=== PATIENT | male | born 1930 | race Caucasian/White ===

== ENCOUNTER 2016-11-21 01:34 | Inpatient (IN) | payer MEDICARE ==
[2016-11-21] VITALS (7 sets, daily range): BP systolic 132–173; BP diastolic 86–96
[~2016-11-21] VITALS: Ht 172.7 cm; Wt 76.8 kg
[2016-11-21] MEDS ORDERED: IPRATRPIUM/ALBUTEROL 0.5/2.5MG 3 ML NEBU. NEB ONE (02:45)
[2016-11-21 02:46] LABS: BASO % 0 % (0-3); CREATININE 2.6 mg/dL (0.7-1.3); EOS % 2 % (0-3); GFR 23.4; HEMOGLOBIN 10.8 g/dL (13.0-17.5); LYMPH # 0.4 x10^3/uL (1.0-4.8); LYMPH % 4 % (24-48); MEAN CORPUSCULAR HEMOGLOBIN 27 pg (25-35); MEAN CORPUSCULAR HGB CONC 33 g/dL (31-37); MEAN CORPUSCULAR VOLUME 84 fL (79-100); MONO % 9 % (0-9); NEUT % 84 % (31-73); PLATELET COUNT 286 x10^3/uL (140-400); RED BLOOD COUNT 3.94 x10^6/uL (4.30-5.70); WHITE BLOOD COUNT 10.8 x10^3/uL (4.0-11.0)
[2016-11-21 02:52] LABS: ALBUMIN 3.5 g/dL (3.4-5.0); ALBUMIN/GLOBULIN RATIO 0.9 (1.0-1.7); TOTAL BILIRUBIN 0.4 mg/dL (0.2-1.0); TOTAL PROTEIN 7.6 g/dL (6.4-8.2)
[2016-11-21 03:02] LABS: OBC FLU VALID
--- NOTE | 2016-11-21 03:39 | ED.ADGEN ---
Past Medical History Past Medical History: Diabetes-Type II, Hypertension Past Surgical History: Knee Replacement, Other Additional Past Surgical Histo: PROSTATE Alcohol Use: None Drug Use: None Adult General Chief Complaint Chief Complaint: COUGH HPI HPI Patient is a 86 year old history of type 2 diabetes mellitus, hypertension, who presents to the emergency department with complaint of cough, wheezing, shortness of breath which she states isn't worsening over the past several weeks. Patient denies any chest pain, any fevers or chills, states the cough is nonproductive, denies any swelling extremities, any abdominal pain, any nausea, vomiting or diarrhea, any weakness emesis or tingling, any recent travel or surgery. No history of DVT or PE. Review of Systems Review of Systems Constitutional: Denies fever or chills. [] Eyes: Denies change in visual acuity. [] HENT: Denies nasal congestion or sore throat. [] Respiratory: Cough, shortness of breath. Wheezing. Cardiovascular: Denies chest pain or edema. [] GI: Denies abdominal pain, nausea, vomiting, bloody stools or diarrhea. [] : Denies dysuria. [] Musculoskeletal: Denies back pain or joint pain. [] Integument: Denies rash. [] Neurologic: Denies headache, focal weakness or sensory changes. [] Endocrine: Denies polyuria or polydipsia. [] Lymphatic: Denies swollen glands. [] Psychiatric: Denies depression or anxiety. [] Current Medications Current Medications Current Medications Medications (Trade) Dose Ordered Sig/Kenisha Start Time Stop Time Status Last Admin Dose Admin Albuterol/ Ipratropium (Duoneb) 3 ml 1X ONCE 11/21/16 02:45 11/21/16 02:46 DC 11/21/16 02:36 3 ML Allergies Allergies Allergies Coded Allergies Type Severity Reaction Last Updated Verified No Known Drug Allergies 11/21/16 No Physical Exam Physical Exam Constitutional: Well developed, well nourished, no acute distress, non-toxic appearance. [] HENT: Normocephalic, atraumatic, bilateral external ears normal, oropharynx moist, no oral exudates, nose normal. [] Eyes: PERRLA, EOMI, conjunctiva normal, no discharge. [] Neck: Normal range of motion, no tenderness, supple, no stridor. [] Cardiovascular:Heart rate regular rhythm, no murmur [, S1, S2, rubs or gallops.] Lungs & Thorax: Patient with coarse breath sounds noted bilaterally, rhonchi, throughout, no wheezing, no rales. No chest wall tenderness or crepitus. [] Abdomen: Bowel sounds normal, soft, no tenderness, no rebound, rigidity, no guarding, no masses, no pulsatile masses. [] Skin: Warm, dry, no erythema, no rash. [] Back: No tenderness, no CVA tenderness. [] Extremities: No tenderness, no cyanosis, no clubbing, ROM intact, no edema. Negative Homans sign. [] Neurologic: Alert and oriented X 3, normal motor function, normal sensory function, no focal deficits noted. [] Psychologic: Affect normal, judgement normal, mood normal. [] Current Patient Data Vital Signs Vital Signs Date Time Temp Pulse Resp B/P Pulse Ox O2 Delivery O2 Flow Rate FiO2 11/21/16 04:00 94 150/83 98 Room Air 11/21/16 01:51 98.6 20 98.6 Lab Values Laboratory Tests Test 11/21/16 02:27 11/21/16 03:44 White Blood Count 10.8x10^3/uL (4.0-11.0) Red Blood Count 3.94x10^6/uL (4.30-5.70) L Hemoglobin 10.8g/dL (13.0-17.5) L Hematocrit 33.0% (39.0-53.0) L Mean Corpuscular Volume 84fL (79-100) Mean Corpuscular Hemoglobin 27pg (25-35) Mean Corpuscular Hemoglobin Concent 33g/dL (31-37) Red Cell Distribution Width 13.0% (11.5-14.5) Platelet Count 286x10^3/uL (140-400) Neutrophils (%) (Auto) 84% (31-73) H Lymphocytes (%) (Auto) 4% (24-48) L Monocytes (%) (Auto) 9% (0-9) Eosinophils (%) (Auto) 2% (0-3) Basophils (%) (Auto) 0% (0-3) Neutrophils # (Auto) 9.1x10^3uL (1.8-7.7) H Lymphocytes # (Auto) 0.4x10^3/uL (1.0-4.8) L Monocytes # (Auto) 1.0x10^3/uL (0.0-1.1) Eosinophils # (Auto) 0.2x10^3/uL (0.0-0.7) Basophils # (Auto) 0.0x10^3/uL (0.0-0.2) Sodium Level 139mmol/L (136-145) Potassium Level 4.0mmol/L (3.5-5.1) Chloride Level 102mmol/L (98-107) Carbon Dioxide Level 25mmol/L (21-32) Anion Gap 12 (6-14) Blood Urea Nitrogen 37mg/dL (8-26) H Creatinine 2.6mg/dL (0.7-1.3) H Estimated GFR (Cockcroft-Gault) 23.4 BUN/Creatinine Ratio 14 (6-20) Glucose Level 182mg/dL (70-99) H Calcium Level 9.0mg/dL (8.5-10.1) Total Bilirubin 0.4mg/dL (0.2-1.0) Aspartate Amino Transferase (AST) 27U/L (15-37) Alanine Aminotransferase (ALT) 30U/L (16-63) Alkaline Phosphatase 98U/L (46-116) Troponin I Quantitative < 0.017ng/mL (0.000-0.055) JY-Bgu-U-Type Natriuretic Peptide 1222pg/mL (0-449) H Total Protein 7.6g/dL (6.4-8.2) Albumin 3.5g/dL (3.4-5.0) Albumin/Globulin Ratio 0.9 (1.0-1.7) L Influenza Type A Antigen Negative (NEGATIVE) Influenza Type B Antigen Negative (NEGATIVE) Urine Collection Type Unknown Urine Color Yellow Urine Clarity Clear Urine pH 6.0 Urine Specific [place] 1.020 Urine Protein >=300mg/dL (NEG-TRACE) Urine Glucose (UA) 100mg/dL (NEG) Urine Ketones (Stick) Negativemg/dL (NEG) Urine Blood Negative (NEG) Urine Nitrite Negative (NEG) Urine Bilirubin Negative (NEG) Urine Urobilinogen Dipstick 0.2mg/dL (0.2 mg/dL) Urine Leukocyte Esterase Negative (NEG) Urine RBC 1-2/HPF (0-2) Urine WBC Occ/HPF (0-4) Urine Squamous Epithelial Cells Few/LPF Urine Bacteria 0/HPF (0-FEW) Urine Mucus Slight/LPF Laboratory Tests 11/21/16 02:27 Laboratory Tests 11/21/16 02:27 EKG EKG EC: Sinus rhythm, heart rate 99 beats minute, left axis deviation, QTC of 444, VT 146, QRS of 84, contour abnormalities noted in the anterior septal leads, with mild baseline artifact, no ST elevation or depression identified, abnormal ECG, does not meet STEMI criteria. [] Radiology/Procedures Radiology/Procedures Chest x-ray: Two-view: Slightly tortuous aorta, no obvious infiltrates or effusions, increased interstitial markings bilaterally, no pneumothorax, no bony or soft tissue abnormalities identified. As interpreted by me. [] Course & Med Decision Making Course & Med Decision Making Pertinent Labs and Imaging studies reviewed. (See chart for details) Patient with no history of renal insufficiency, noted have a creatinine of 2.6 in the emergency department, with an elevated blood urea nitrogen. I did discuss this finding with the patient and at bedside, patient states that he had laboratory studies performed about 2 weeks ago that were normal at that time. In conjunction with his other symptoms, although his chest x-ray does not reveal any acutely concerning findings, will admit for further evaluation, patient is agreeable with this course, findings as above discussed with Dr. Michelle of internal medicine, ridge orders with nephrology consultation placed. Dragon Disclaimer Dragon Disclaimer This electronic medical record was generated, in whole or in part, using a voice recognition dictation system. Departure Impression: Primary Impression: Acute renal failure Disposition: 09 ADMITTED INPATIENT Admitting Physician: Riccardo Michelle Condition: STABLE Problem Qualifiers Primary Impression: Acute renal failure Acute renal failure type: unspecified Qualified Code: N17.9 - Acute kidney failure, unspecified OLIVERIO YANES DO Nov 21, 2016 03:39
[2016-11-21 03:53] LABS: BILIRUBIN,URINE NEGATIVE (NEG); GLUCOSE,URINE 100 mg/dL (NEG); NITRITE,URINE NEGATIVE (NEG); PROTEIN,URINE >=300 mg/dL (NEG-TRACE); UROBILINOGEN,URINE 0.2 mg/dL (0.2 mg/dL)
[2016-11-21 03:59] LABS: BACTERIA,URINE 0 /HPF (0-FEW); SQUAMOUS EPITHELIAL CELL,UR FEW /LPF; WBC,URINE OCC /HPF (0-4)
[2016-11-21] MEDS ORDERED: IV NORMAL SALINE 1000ML BAG 1,000 ML IV ONE (05:00)
[2016-11-21] MEDS ORDERED: GLIP10TA13 PO (05:44)
[2016-11-21] MEDS ORDERED: HYDR-2868 PO (05:44)
[2016-11-21] MEDS ORDERED: NIFE90TA9 PO (05:44)
[2016-11-21] MEDS ORDERED: MULT-659 PO (05:44)
[2016-11-21] MEDS ORDERED: IRBE300T3 PO (05:44)
[2016-11-21] MEDS: IV NORMAL SALINE 1000ML BAG 1,000 ML IV SCH ×3 (07:23→17:23)
[2016-11-21] MEDS ORDERED: ACETAMINOPHEN 325 MG TABLET. PO PRN (07:30)
[2016-11-21] MEDS ORDERED: DEXTROSE 50% 25 GM / 50ML DISP.SYRIN. IV PRN (08:00)
--- NOTE | 2016-11-21 08:05 | RAD ---
Indication cough. Wheezing. PA and lateral views of the chest were obtained. Comparison is made to a study 07/07/2004. There are probable background changes of emphysema. The heart and pulmonary vessels appear normal. There is no focal consolidated pneumonia. No pleural fluid or pneumothorax is seen. There are degenerative changes about the shoulders. IMPRESSION: No acute or focal process seen in the chest
[2016-11-21] MEDS: MULTIVITAMIN with MINERAL TABLET. PO SCH (09:15)
[2016-11-21] MEDS: GLIPIZIDE 5 MG TABLET PO SCH ×2 (09:16→16:49)
[2016-11-21] MEDS: HYDRALAZINE 25 MG TABLET PO SCH ×3 (09:16→20:27)
[2016-11-21] MEDS: NIFEDIPINE ER 30 MG TAB.ER.24H PO SCH (09:16)
[2016-11-21] MEDS: INSULIN ASPART 300 UNITS/3 ML INSULN.PEN SQ SCH ×3 (09:25→16:36)
--- NOTE | 2016-11-21 11:40 | EKG ---
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
[2016-11-21] MEDS: IPRATRPIUM/ALBUTEROL 0.5/2.5MG 3 ML NEBU. NEB SCH ×3 (12:00→20:00)
--- NOTE | 2016-11-21 12:25 | PDOC1 ---
History and Physical Date of Admission Date of Admission DATE: 11/21/16 TIME: 12:20 Identification/Chief Complaint Chief Complaint weak Source Source: Caregiver, Chart review, Patient History of Present Illness History of Present Illness 86 y.o AA male who came in [facility] was so weak than his baseline, HE usually has good ADLS for his age, lives at home with and uses a walker prn. LAbs at ER shows crea 2.6, new to him, HE has DM since 1981 only on OHA and seems to have good control. Also has HTN, rather controlled too,. Follows regularly with PCP. HE seems to have good compliance and good ff up. Lots of questions about JENNIFER and causes, getting IVF at 100cc.hr,. Educated and pleased with info given to him, NO recent GI losses, BP opk, no cp. rest of ROS 14 systems reviewed neg UA shows proteinuria 100 no glucosuria. Flu A and B are neg Past Medical History Cardiovascular: HTN, Hyperlipidemia Endocrine: Diabetes Past Surgical History Past Surgical History: No pertinent history Family History Family History: No Significant Social History Smoke: No ALCOHOL: none Drugs: None Current Problem List Problem List Problems Medical Problems: (1) Acute renal failure Status: Acute Problems: Current Medications Current Medications Current Medications Albuterol/ Ipratropium 3 ml 3 ml 1X ONCE NEB Last administered on 11/21/16t 02 :36; Start 11/21/16 at 02:45; Stop 11/21/16 at 02:46; Status DC Sodium Chloride 1,000 ml @ 100 mls/hr 1X ONCE IV Last administered on t 04:59; Start 11/21/16 at 05:00; Stop 11/21/16 at 14:59 Sodium Chloride (Iv Sodium Chloride 0.9% 1000ml Bag) 1,000 ml @ 100 mls/hr Q10H IV ; Start 11/21/16 at 07:23; Stop 11/22/16 at 07:22 Acetaminophen (Tylenol) 650 mg PRN Q4HRS PRN PO FEVER; Start 11/21/16 at 07:30 ; Stop 11/22/16 at 07:29 Albuterol/ Ipratropium (Duoneb) 3 ml RTQID NEB ; Start 11/21/16 at 08:00; Stop 11/22/16 at 07:59 Hydralazine HCl (Apresoline) 25 mg TID PO Last administered on 11/21/16 09:16 ; Start 11/21/16 at 09:00 Glipizide (Glucotrol) 10 mg BIDBFRMEAL PO Last administered on 11/21/16 09:16 ; Start 11/21/16 at 08:00 Multivitamins/ Calcium (Thera M Plus) 1 tab DAILY PO Last administered on 09:15; Start 11/21/16 at 09:00 Nifedipine (Procardia Xl) 90 mg DAILY PO Last administered on 11/21/16 09:16; Start 11/21/16 at 09:00 Insulin Aspart (Novolog) 0-9 UNITS TIDWMEALS SQ Last administered on 11/21/16 12:07; Start 11/21/16 at 08:00 Dextrose 12.5 gm PRN Q15MIN PRN IV SEE COMMENTS; Start 11/21/16 at 08:00 Active Scripts Active Reported Centrum Men's Tablet (Multivits,Ca,Min/Iron/FA/Lycop) 1 Each Tablet 1 Each PO DAILY Nifedipine Er (Nifedipine) 90 Mg Tab.er.24 90 Mg PO DAILY Hydralazine Hcl 25 Mg Tablet 25 Mg PO TID Irbesartan 300 Mg Tablet 300 Mg PO DAILY Glipizide 10 Mg Tablet 10 Mg PO BIDAC Allergies Allergies: Coded Allergies: No Known Drug Allergies (Unverified , 11/21/16) ROS General: YES: Other (weak) PSYCHOLOGICAL ROS: No: Anxiety, Behavioral Disorder, Concentration difficultie , Decreased libido, Depression, Disorientation, Hallucinations, Hostility, Irritablity, Memory difficulties, Mood Swings, Obsessive thoughts, Other, Physical abuse, Sexual abuse, Sleep disturbances, Suicidal ideation Eyes: No Blurry vision, No Decreased vision, No Double vision, No Dry eyes, No Excessive tearing, No Eye Pain, No Itchy Eyes, No Loss of vision, No Other, No Photophobia, No Scotomata, No Uses contacts, No Uses glasses HEENT: No: Epistaxis, Heacaches, Hearing change, Nasal congestion, Nasal discharge, Oral lesions, Other, Sinus pain, Sneezing, Snoring, Sore Throat, Tinnitus, Vertigo, Visual Changes, Vocal changes ALLERGY AND IMMUNOLOGY: No: Hives, Insect Bite Sensitivity, Itchy/Watery Eyes, Nasal Congestion, Other, Post Nasal Drip, Seasonal Allergies Hematological and Lymphatic: No: Bleeding Problems, Blood Clots, Blood Transfusions, Brusing, Night Sweats, Other, Pallor, Swollen Lymph Nodes ENDOCRINE: No: Breast Changes, Galactorrhea, Hair Pattern Changes, Hot Flashes , Malaise/lethargy, Mood Swings, Other, Palpitations, Polydipsia/polyuria, Skin Changes, Temperature Intolerance, Unexpected Weight Changes Breast: No New/Changing Breast Lumps, No Nipple changes, No Nipple discharge, No Other Respiratory: No: Cough, Hemoptysis, Orthopnea, Other, Pleuritic Pain, SOB with excertion, Shortness of breath, Sputum Changes, Stridor, Tachypnea, Wheezing Cardiovascular: No Chest Pain, No Edema, No Lt Headedness, No Orthopnea, No Other, No Palpitations, No Paroxysmal Noc. Dyspnea Gastrointestinal: No Abdominal Pain, No Constipation, No Diarrhea, No Hematochezia, No Melena, No Nausea, No Other, No Vomiting Genitourinary: No , No , No , No , No , No , No , No Discharge, No Dysuria, No Flank Pain, No Frequency, No Hematuria, No Incontinence, No Other, No Pain, No Retention, No Urgency Musculoskeletal: No Gait Disturbance, No Joint Pain, No Joint Stiffness, No Joint Swelling, No Muscle Pain, No Muscular Weakness, No Other, No Pain In:, No Swelling In: Skin: No Acne, No Dry Skin, No Eczema, No Hair Changes, No Lumps, No Mole Changes, No Mottling, No Nail Changes, No Other, No Pruritus, No Rash, No Skin Lesion Changes Physical Exam General: Alert, Oriented X3, Cooperative, No acute distress HEENT: PERRLA, EOMI Lungs: Clear to auscultation, Normal air movement Heart: S1S2, RRR, no thrills Cardiovascular: S1, S2 Breasts: Normal Male Genitals Exam: normal genitalia, normal prostate Rectal Exam: not examined PELVIC: Nml ext genitalia Extremities: No clubbing, No cyanosis, No edema, Normal pulses, No tenderness/ swelling Skin: No rashes, No breakdown, No significant lesion Neuro: Normal gait, Normal speech, Strength at 5/5 X4 ext, Normal tone, Sensation intact, Cranial nerves 3-12 NL, Reflexes 2+ Psych/Mental Status: Mental status NL, Mood NL Vitals Vitals Vital Signs Date Time Temp Pulse Resp B/P Pulse Ox O2 Delivery O2 Flow Rate FiO2 11/21/16 11:15 98.7 94 18 142/96 100 Room Air 98.7 Labs Labs Laboratory Tests Test 11/21/16 02:27 11/21/16 03:44 11/21/16 07:34 11/21/16 10:47 White Blood Count 10.8x10^3/uL (4.0-11.0) Red Blood Count 3.94x10^6/uL (4.30-5.70) Hemoglobin 10.8g/dL (13.0-17.5) Hematocrit 33.0% (39.0-53.0) Mean Corpuscular Volume 84fL (79-100) Mean Corpuscular Hemoglobin 27pg (25-35) Mean Corpuscular Hemoglobin Concent 33g/dL (31-37) Red Cell Distribution Width 13.0% (11.5-14.5) Platelet Count 286x10^3/uL (140-400) Neutrophils (%) (Auto) 84% (31-73) Lymphocytes (%) (Auto) 4% (24-48) Monocytes (%) (Auto) 9% (0-9) Eosinophils (%) (Auto) 2% (0-3) Basophils (%) (Auto) 0% (0-3) Neutrophils # (Auto) 9.1x10^3uL (1.8-7.7) Lymphocytes # (Auto) 0.4x10^3/uL (1.0-4.8) Monocytes # (Auto) 1.0x10^3/uL (0.0-1.1) Eosinophils # (Auto) 0.2x10^3/uL (0.0-0.7) Basophils # (Auto) 0.0x10^3/uL (0.0-0.2) Sodium Level 139mmol/L (136-145) Potassium Level 4.0mmol/L (3.5-5.1) Chloride Level 102mmol/L (98-107) Carbon Dioxide Level 25mmol/L (21-32) Anion Gap 12 (6-14) Blood Urea Nitrogen 37mg/dL (8-26) Creatinine 2.6mg/dL (0.7-1.3) Estimated GFR (Cockcroft-Gault) 23.4 BUN/Creatinine Ratio 14 (6-20) Glucose Level 182mg/dL (70-99) Calcium Level 9.0mg/dL (8.5-10.1) Total Bilirubin 0.4mg/dL (0.2-1.0) Aspartate Amino Transf (AST/SGOT) 27U/L (15-37) Alanine Aminotransferase (ALT/SGPT) 30U/L (16-63) Alkaline Phosphatase 98U/L (46-116) Troponin I Quantitative < 0.017ng/mL (0.000-0.055) PF-Rlo-E-Type Natriuretic Peptide 1222pg/mL (0-449) Total Protein 7.6g/dL (6.4-8.2) Albumin 3.5g/dL (3.4-5.0) Albumin/Globulin Ratio 0.9 (1.0-1.7) Influenza Type A Antigen Negative (NEGATIVE) Influenza Type B Antigen Negative (NEGATIVE) Urine Collection Type Unknown Urine Color Yellow Urine Clarity Clear Urine pH 6.0 Urine Specific [place] 1.020 Urine Protein >=300mg/dL (NEG-TRACE) Urine Glucose (UA) 100mg/dL (NEG) Urine Ketones (Stick) Negativemg/dL (NEG) Urine Blood Negative (NEG) Urine Nitrite Negative (NEG) Urine Bilirubin Negative (NEG) Urine Urobilinogen Dipstick 0.2mg/dL (0.2 mg/dL) Urine Leukocyte Esterase Negative (NEG) Urine RBC 1-2/HPF (0-2) Urine WBC Occ/HPF (0-4) Urine Squamous Epithelial Cells Few/LPF Urine Bacteria 0/HPF (0-FEW) Urine Mucus Slight/LPF Glucose (Fingerstick) 174mg/dL (70-99) 160mg/dL (70-99) Laboratory Tests Test 11/21/16 02:27 11/21/16 03:44 11/21/16 07:34 11/21/16 10:47 White Blood Count 10.8x10^3/uL (4.0-11.0) Red Blood Count 3.94x10^6/uL (4.30-5.70) Hemoglobin 10.8g/dL (13.0-17.5) Hematocrit 33.0% (39.0-53.0) Mean Corpuscular Volume 84fL (79-100) Mean Corpuscular Hemoglobin 27pg (25-35) Mean Corpuscular Hemoglobin Concent 33g/dL (31-37) Red Cell Distribution Width 13.0% (11.5-14.5) Platelet Count 286x10^3/uL (140-400) Neutrophils (%) (Auto) 84% (31-73) Lymphocytes (%) (Auto) 4% (24-48) Monocytes (%) (Auto) 9% (0-9) Eosinophils (%) (Auto) 2% (0-3) Basophils (%) (Auto) 0% (0-3) Neutrophils # (Auto) 9.1x10^3uL (1.8-7.7) Lymphocytes # (Auto) 0.4x10^3/uL (1.0-4.8) Monocytes # (Auto) 1.0x10^3/uL (0.0-1.1) Eosinophils # (Auto) 0.2x10^3/uL (0.0-0.7) Basophils # (Auto) 0.0x10^3/uL (0.0-0.2) Sodium Level 139mmol/L (136-145) Potassium Level 4.0mmol/L (3.5-5.1) Chloride Level 102mmol/L (98-107) Carbon Dioxide Level 25mmol/L (21-32) Anion Gap 12 (6-14) Blood Urea Nitrogen 37mg/dL (8-26) Creatinine 2.6mg/dL (0.7-1.3) Estimated GFR (Cockcroft-Gault) 23.4 BUN/Creatinine Ratio 14 (6-20) Glucose Level 182mg/dL (70-99) Calcium Level 9.0mg/dL (8.5-10.1) Total Bilirubin 0.4mg/dL (0.2-1.0) Aspartate Amino Transf (AST/SGOT) 27U/L (15-37) Alanine Aminotransferase (ALT/SGPT) 30U/L (16-63) Alkaline Phosphatase 98U/L (46-116) Troponin I Quantitative < 0.017ng/mL (0.000-0.055) SY-Qfw-J-Type Natriuretic Peptide 1222pg/mL (0-449) Total Protein 7.6g/dL (6.4-8.2) Albumin 3.5g/dL (3.4-5.0) Albumin/Globulin Ratio 0.9 (1.0-1.7) Influenza Type A Antigen Negative (NEGATIVE) Influenza Type B Antigen Negative (NEGATIVE) Urine Collection Type Unknown Urine Color Yellow Urine Clarity Clear Urine pH 6.0 Urine Specific [place] 1.020 Urine Protein >=300mg/dL (NEG-TRACE) Urine Glucose (UA) 100mg/dL (NEG) Urine Ketones (Stick) Negativemg/dL (NEG) Urine Blood Negative (NEG) Urine Nitrite Negative (NEG) Urine Bilirubin Negative (NEG) Urine Urobilinogen Dipstick 0.2mg/dL (0.2 mg/dL) Urine Leukocyte Esterase Negative (NEG) Urine RBC 1-2/HPF (0-2) Urine WBC Occ/HPF (0-4) Urine Squamous Epithelial Cells Few/LPF Urine Bacteria 0/HPF (0-FEW) Urine Mucus Slight/LPF Glucose (Fingerstick) 174mg/dL (70-99) 160mg/dL (70-99) VTE Prophylaxis Ordered VTE Prophylaxis Devices: Yes VTE Pharmacological Prophylaxi: Yes Assessment/Plan Assessment/Plan 1. JENNIFER unknown if CKD 2. DM 2 on OHA since 1981 3. HTN, controlled 4. Proteinuria PLAN: Agree with present IVF\ Recheck BMP alexy Awaiting renal PT/OT Might need 24 hr urine and renal sono Dw pt KALE RAMIREZ MD Nov 21, 2016 12:25
--- NOTE | 2016-11-21 15:12 | PDOC2 ---
CONSULT Date of Consult Date of Consult DATE: 11/21/16 TIME: 15:10 Reason for Consult Reason for Consult: ^ed Creat Referring Physician Referring Physician: Dr Connelly Identification/Chief Complaint Chief Complaint as dictated Problems: Source Source: Chart review, Patient History of Present Illness Reason for Visit: as dictated Past Medical History Cardiovascular: HTN, Hyperlipidemia Endocrine: Diabetes Past Surgical History Past Surgical History: No pertinent history Family History Family History: No Significant Social History No ALCOHOL: none Drugs: None Current Problem List Problem List Problems Medical Problems: (1) Acute renal failure Status: Acute Current Medications Current Medications Current Medications Albuterol/ Ipratropium 3 ml 3 ml 1X ONCE NEB Last administered on 11/21/16 02 :36; Start 11/21/16 at 02:45; Stop 11/21/16 at 02:46; Status DC Sodium Chloride 1,000 ml @ 100 mls/hr 1X ONCE IV Last administered on 04:59; Start 11/21/16 at 05:00; Stop 11/21/16 at 14:59; Status DC Sodium Chloride (Iv Sodium Chloride 0.9% 1000ml Bag) 1,000 ml @ 100 mls/hr Q10H IV Last administered on 11/21/16 14:53; Start 11/21/16 at 07:23; Stop at 07:22 Acetaminophen (Tylenol) 650 mg PRN Q4HRS PRN PO FEVER; Start 11/21/16 at 07:30 ; Stop 11/22/16 at 07:29 Albuterol/ Ipratropium (Duoneb) 3 ml RTQID NEB ; Start 11/21/16 at 08:00; Stop 11/22/16 at 07:59 Hydralazine HCl (Apresoline) 25 mg TID PO Last administered on 11/21/16 14:51 ; Start 11/21/16 at 09:00 Glipizide (Glucotrol) 10 mg BIDBFRMEAL PO Last administered on 11/21/16 09:16 ; Start 11/21/16 at 08:00 Multivitamins/ Calcium (Thera M Plus) 1 tab DAILY PO Last administered on 09:15; Start 11/21/16 at 09:00 Nifedipine (Procardia Xl) 90 mg DAILY PO Last administered on 11/21/16 09:16; Start 11/21/16 at 09:00 Insulin Aspart (Novolog) 0-9 UNITS TIDWMEALS SQ Last administered on 11/21/16 12:07; Start 11/21/16 at 08:00 Dextrose 12.5 gm PRN Q15MIN PRN IV SEE COMMENTS; Start 11/21/16 at 08:00 Active Scripts Active Reported Centrum Men's Tablet (Multivits,Ca,Min/Iron/FA/Lycop) 1 Each Tablet 1 Each PO DAILY Nifedipine Er (Nifedipine) 90 Mg Tab.er.24 90 Mg PO DAILY Hydralazine Hcl 25 Mg Tablet 25 Mg PO TID Irbesartan 300 Mg Tablet 300 Mg PO DAILY Glipizide 10 Mg Tablet 10 Mg PO BIDAC Allergies Allergies: Coded Allergies: No Known Drug Allergies (Unverified , 11/21/16) ROS Review of System GEN: no Fevers no Chills EYES: no new Visual Complaints ENT: no EN Drainage no Hearing deficiets CVS: no Orthopnea no CP RESP: no SOB no HAWKINS + Cough GI: no Nausea no Vomiting : no Dysuria occ Urgency HEME: no easy bruising no Palp Ly Nodes NEURO no Focal Weakness no Sz PSYCH: no Suicidal Ideation no Depression SKIN: no Rashes ENDO: no Polyuria or Polydipsia no Hot/Cold Intolerance MU SK: no Arthraigia no Myalgia Physical Exam Physical Exam General Appearance: Awake Alert Oriented x 3 In no Distress Eyes: VIsion Unchanged Conjunctiva Normal EN: No EN Drainage Mucous Memb. mosit Neck: no JVD no JVP Supple no Thyromegaly CVS: S1 S2 ? soft Murmur No Gallop No Rub no Edema Resp: no Rales no Rhonchi no Acc. Muscle use GI: BAS +ve NO Bruit Non Tender Non Distended : no CVA tenderness; no Suprapubic Tenderness SKIN: no Rashes Breast Exam deferred Mu.Sk: Adequate ROM no Muscle Atrophy Heme: Unable to palpate Obvious LAD no Splenomegaly NEURO: Good Strength and Tone Cranial Nerves II - XII grossly intact Psych: not obviously Depressed no Active hallucination Vital Signs Vital Signs Date Time Temp Pulse Resp B/P Pulse Ox O2 Delivery O2 Flow Rate FiO2 11/21/16 14:51 91 132/87 11/21/16 11:15 98.7 18 100 Room Air 98.7 Assessment & Plan ARF: Unclear etio, D/d is wide at this time. See O for W/up as ordered. Current FLuid and E-lyte status does not necessitate emergent need for Dialysis. Will re-evaluate for Dialysis in am Vol depletion (unclear etio) - IVF for now Wt Loss - defer to Primary team to work up, cehck PSA Protienruia - ? renal vs related to Bladder XRT in the past; check PEPs too Anemia: check [place]; Epogen if hgb < 10. Transfuse as needed. HTN: Current BP meds reviewed. See orders for changes. Discussed Plan of Care and prognosis etc. at length with family ) Labs Labs Laboratory Tests Test 11/21/16 02:27 11/21/16 03:44 11/21/16 07:34 11/21/16 10:47 White Blood Count 10.8x10^3/uL (4.0-11.0) Red Blood Count 3.94x10^6/uL (4.30-5.70) Hemoglobin 10.8g/dL (13.0-17.5) Hematocrit 33.0% (39.0-53.0) Mean Corpuscular Volume 84fL (79-100) Mean Corpuscular Hemoglobin 27pg (25-35) Mean Corpuscular Hemoglobin Concent 33g/dL (31-37) Red Cell Distribution Width 13.0% (11.5-14.5) Platelet Count 286x10^3/uL (140-400) Neutrophils (%) (Auto) 84% (31-73) Lymphocytes (%) (Auto) 4% (24-48) Monocytes (%) (Auto) 9% (0-9) Eosinophils (%) (Auto) 2% (0-3) Basophils (%) (Auto) 0% (0-3) Neutrophils # (Auto) 9.1x10^3uL (1.8-7.7) Lymphocytes # (Auto) 0.4x10^3/uL (1.0-4.8) Monocytes # (Auto) 1.0x10^3/uL (0.0-1.1) Eosinophils # (Auto) 0.2x10^3/uL (0.0-0.7) Basophils # (Auto) 0.0x10^3/uL (0.0-0.2) Sodium Level 139mmol/L (136-145) Potassium Level 4.0mmol/L (3.5-5.1) Chloride Level 102mmol/L (98-107) Carbon Dioxide Level 25mmol/L (21-32) Anion Gap 12 (6-14) Blood Urea Nitrogen 37mg/dL (8-26) Creatinine 2.6mg/dL (0.7-1.3) Estimated GFR (Cockcroft-Gault) 23.4 BUN/Creatinine Ratio 14 (6-20) Glucose Level 182mg/dL (70-99) Calcium Level 9.0mg/dL (8.5-10.1) Total Bilirubin 0.4mg/dL (0.2-1.0) Aspartate Amino Transf (AST/SGOT) 27U/L (15-37) Alanine Aminotransferase (ALT/SGPT) 30U/L (16-63) Alkaline Phosphatase 98U/L (46-116) Troponin I Quantitative < 0.017ng/mL (0.000-0.055) SQ-Mjp-H-Type Natriuretic Peptide 1222pg/mL (0-449) Total Protein 7.6g/dL (6.4-8.2) Albumin 3.5g/dL (3.4-5.0) Albumin/Globulin Ratio 0.9 (1.0-1.7) Influenza Type A Antigen Negative (NEGATIVE) Influenza Type B Antigen Negative (NEGATIVE) Urine Collection Type Unknown Urine Color Yellow Urine Clarity Clear Urine pH 6.0 Urine Specific [place] 1.020 Urine Protein >=300mg/dL (NEG-TRACE) Urine Glucose (UA) 100mg/dL (NEG) Urine Ketones (Stick) Negativemg/dL (NEG) Urine Blood Negative (NEG) Urine Nitrite Negative (NEG) Urine Bilirubin Negative (NEG) Urine Urobilinogen Dipstick 0.2mg/dL (0.2 mg/dL) Urine Leukocyte Esterase Negative (NEG) Urine RBC 1-2/HPF (0-2) Urine WBC Occ/HPF (0-4) Urine Squamous Epithelial Cells Few/LPF Urine Bacteria 0/HPF (0-FEW) Urine Mucus Slight/LPF Glucose (Fingerstick) 174mg/dL (70-99) 160mg/dL (70-99) Laboratory Tests Test 11/21/16 02:27 11/21/16 03:44 11/21/16 07:34 11/21/16 10:47 White Blood Count 10.8x10^3/uL (4.0-11.0) Red Blood Count 3.94x10^6/uL (4.30-5.70) Hemoglobin 10.8g/dL (13.0-17.5) Hematocrit 33.0% (39.0-53.0) Mean Corpuscular Volume 84fL (79-100) Mean Corpuscular Hemoglobin 27pg (25-35) Mean Corpuscular Hemoglobin Concent 33g/dL (31-37) Red Cell Distribution Width 13.0% (11.5-14.5) Platelet Count 286x10^3/uL (140-400) Neutrophils (%) (Auto) 84% (31-73) Lymphocytes (%) (Auto) 4% (24-48) Monocytes (%) (Auto) 9% (0-9) Eosinophils (%) (Auto) 2% (0-3) Basophils (%) (Auto) 0% (0-3) Neutrophils # (Auto) 9.1x10^3uL (1.8-7.7) Lymphocytes # (Auto) 0.4x10^3/uL (1.0-4.8) Monocytes # (Auto) 1.0x10^3/uL (0.0-1.1) Eosinophils # (Auto) 0.2x10^3/uL (0.0-0.7) Basophils # (Auto) 0.0x10^3/uL (0.0-0.2) Sodium Level 139mmol/L (136-145) Potassium Level 4.0mmol/L (3.5-5.1) Chloride Level 102mmol/L (98-107) Carbon Dioxide Level 25mmol/L (21-32) Anion Gap 12 (6-14) Blood Urea Nitrogen 37mg/dL (8-26) Creatinine 2.6mg/dL (0.7-1.3) Estimated GFR (Cockcroft-Gault) 23.4 BUN/Creatinine Ratio 14 (6-20) Glucose Level 182mg/dL (70-99) Calcium Level 9.0mg/dL (8.5-10.1) Total Bilirubin 0.4mg/dL (0.2-1.0) Aspartate Amino Transf (AST/SGOT) 27U/L (15-37) Alanine Aminotransferase (ALT/SGPT) 30U/L (16-63) Alkaline Phosphatase 98U/L (46-116) Troponin I Quantitative < 0.017ng/mL (0.000-0.055) GV-Zvz-M-Type Natriuretic Peptide 1222pg/mL (0-449) Total Protein 7.6g/dL (6.4-8.2) Albumin 3.5g/dL (3.4-5.0) Albumin/Globulin Ratio 0.9 (1.0-1.7) Influenza Type A Antigen Negative (NEGATIVE) Influenza Type B Antigen Negative (NEGATIVE) Urine Collection Type Unknown Urine Color Yellow Urine Clarity Clear Urine pH 6.0 Urine Specific [place] 1.020 Urine Protein >=300mg/dL (NEG-TRACE) Urine Glucose (UA) 100mg/dL (NEG) Urine Ketones (Stick) Negativemg/dL (NEG) Urine Blood Negative (NEG) Urine Nitrite Negative (NEG) Urine Bilirubin Negative (NEG) Urine Urobilinogen Dipstick 0.2mg/dL (0.2 mg/dL) Urine Leukocyte Esterase Negative (NEG) Urine RBC 1-2/HPF (0-2) Urine WBC Occ/HPF (0-4) Urine Squamous Epithelial Cells Few/LPF Urine Bacteria 0/HPF (0-FEW) Urine Mucus Slight/LPF Glucose (Fingerstick) 174mg/dL (70-99) 160mg/dL (70-99) Images Images PA and lateral views of the chest were obtained. Comparison is made to a study 07/07/2004. There are probable background changes of emphysema. The heart and pulmonary vessels appear normal. There is no focal consolidated pneumonia. No pleural fluid or pneumothorax is seen. There are degenerative changes about the shoulders. IMPRESSION: No acute or focal process seen in the chest TIM TURNER MD Nov 21, 2016 15:12
[2016-11-21] MEDS ORDERED: MAGNESIUM SULFATE 2GM 50 ML IV PRN (15:15)
[2016-11-21 16:32] LABS: % SAT IRON 11 % (15-34); IRON,SERUM 30 ug/dL (65-175)
[2016-11-21 16:43] LABS: URIC ACID 5.5 mg/dL (3.5-7.2)
[2016-11-22 06:45] LABS: BASO % 1 % (0-3); EOS % 3 % (0-3); HEMATOCRIT 32.1 % (39.0-53.0); HEMOGLOBIN 10.8 g/dL (13.0-17.5); LYMPH # 1.1 x10^3/uL (1.0-4.8); LYMPH % 14 % (24-48); MEAN CORPUSCULAR HEMOGLOBIN 28 pg (25-35); MEAN CORPUSCULAR HGB CONC 34 g/dL (31-37); MEAN CORPUSCULAR VOLUME 83 fL (79-100); MONO % 12 % (0-9); NEUT % 71 % (31-73); PLATELET COUNT 244 x10^3/uL (140-400); RED BLOOD COUNT 3.86 x10^6/uL (4.30-5.70); RED CELL DISTRIBUTION WIDTH 12.8 % (11.5-14.5); WHITE BLOOD COUNT 8.2 x10^3/uL (4.0-11.0)
[2016-11-22 07:00] VITALS: BP 174/95
[2016-11-22 07:09] LABS: ALBUMIN 3.3 g/dL (3.4-5.0); CALCIUM 8.7 mg/dL (8.5-10.1); CREATININE 2.3 mg/dL (0.7-1.3); PHOSPHORUS 3.6 mg/dL (2.6-4.7); POTASSIUM 3.6 mmol/L (3.5-5.1)
[2016-11-22] MEDS: INSULIN ASPART 300 UNITS/3 ML INSULN.PEN SQ SCH ×3 (08:00→17:00)
[2016-11-22] MEDS: HYDRALAZINE 25 MG TABLET PO SCH (08:11)
[2016-11-22] MEDS: GLIPIZIDE 5 MG TABLET PO SCH ×2 (08:11→17:16)
[2016-11-22] MEDS: MULTIVITAMIN with MINERAL TABLET. PO SCH (08:11)
[2016-11-22] MEDS: NIFEDIPINE ER 30 MG TAB.ER.24H PO SCH (08:12)
--- NOTE | 2016-11-22 08:27 | CONS ---
DATE OF CONSULTATION: 11/21/2016 PRIMARY PHYSICIAN: Dr. Michelle/Dr. Connelly. REASON FOR CONSULTATION: Acute renal failure. HISTORY OF PRESENT ILLNESS: The patient is an 86-year-old -[place] gentleman who tells me that he has seen ____ last month. He was not informed of any renal insufficiency at that time. He has been diabetic since late 1980s. He is not aware of protein in his urine. He presented to the ER for cough and when blood work was done, he was noted to have a BUN of 37, creatinine of 2.6. We were asked to see him for further evaluation. Flu tests have been negative. He denies nausea, vomiting, diarrhea. His appetite is ____. He has lost about 5-6 pounds over the last 2 months by his reports. He does not know why he is not eating well. PAST MEDICAL HISTORY: Significant for: 1. Longstanding diabetes. 2. Coronary artery disease, status post stents. 3. Prostate cancer, status post radiation. 4. Hypertension. 3. Chronic arthritis with bilateral knee replacements. 4. History of smoking in the past. FAMILY HISTORY: Negative for known kidney problems. SOCIAL HISTORY: , lives with his . Previous smoker as mentioned previously. For rest of details, see electronic records. TIM TURNER MD DR: RACIEL/anitha JOB#: [id number] / [id number]
[2016-11-22] MEDS ORDERED: LABETALOL 20 MG/4 ML DISP.SYRIN. IVP PRN (09:45)
--- NOTE | 2016-11-22 10:17 | RAD ---
Indication acute renal failure superimposed on chronic renal disease. Grayscale imaging of the kidneys was performed. The right kidney measures 9.5 x 4.4 x 4.6 cm. No hydronephrosis or solid mass is seen associated with the right kidney. The left kidney measures 9.6 x 4.7 x 5.3 cm. No hydronephrosis or mass is seen. Urinary bladder was not completely distended but appeared grossly normal. Post void urinary bladder volume is estimated at approximately 25 cc. IMPRESSION: Somewhat small but otherwise unremarkable kidneys. No hydronephrosis or mass is seen associated with either
[2016-11-22] MEDS: IV NORMAL SALINE 1000ML BAG 1,000 ML IV SCH (10:45)
[2016-11-22 11:00] VITALS: BP 165/90
--- NOTE | 2016-11-22 12:51 | PDOC ---
SUBJECTIVE ROS JENNIFER vs CKD DOign and feeling much better today CVS: no Orthopnea, no CP RESP: no SOB, no HAWKINS GI: no Nausea, no Vomiting : no Dysuria, no Urgency OBJECTIVE Vital Signs Vital Signs Date Time Temp Pulse Resp B/P Pulse Ox O2 Delivery O2 Flow Rate FiO2 11/22/16 11:00 93 18 165/90 97 Room Air 11/22/16 07:00 97.9 97.9 I & 0 Intake and Output 11/22/16 07:00 Intake Total 560 ml Output Total 1380 ml Balance -820 ml Intake Oral 560 ml Output Urine Total 1380 ml PHYSICAL EXAM Physical Exam General Appearance: Awake Alert Oriented x 3 In no Distress Eyes: VIsion Unchanged Conjunctiva Normal EN: No EN Drainage Mucous Memb. mosit Neck: no JVD no JVP Supple no Thyromegaly CVS: S1 S2 ? soft Murmur No Gallop No Rub no Edema Resp: no Rales no Rhonchi no Acc. Muscle use GI: BS +ve NO Bruit Non Tender Non Distended : no CVA tenderness; no Suprapubic Tenderness Assessment & Plan ARF: Unclear etio, D/d is wide at this time. See O for W/up as ordered. Creat is better wtih IVF. US WNL Current FLuid and E-lyte status does not necessitate emergent need for Dialysis. Will re-evaluate for Dialysis in am Vol depletion (unclear etio) - IVF for now Wt Loss - defer to Primary team to work up, check PSA Proteinuria - ? renal vs related to Bladder XRT in the past; check PEPs too; Quantitate as ordered Anemia: IV Iron as ordered; Epogen if hgb < 10. Transfuse as needed. HTN: Current BP meds reviewed. See orders for changes. Discussed Plan of Care and prognosis etc. at length with family ) COMMENT/RELEVANT DATA Meds Current Medications Medications (Trade) Dose Ordered Sig/Kenisha Start Time Stop Time Status Last Admin Dose Admin Acetaminophen (Tylenol) 650 mg PRN Q4HRS PRN 11/21/16 07:30 11/22/16 07:29 DC Albuterol/ Ipratropium (Duoneb) 3 ml RTQID 11/21/16 08:00 11/22/16 07:59 DC Albuterol/ Ipratropium 3 ml 3 ml 1X ONCE 11/21/16 02:45 11/21/16 02:46 DC 11/21/16 02:36 3 ML Dextrose 12.5 gm 12.5 gm PRN Q15MIN PRN 11/21/16 08:00 Glipizide (Glucotrol) 10 mg BIDBFRMEAL 11/21/16 08:00 11/22/16 08:11 10 MG Hydralazine HCl (Apresoline) 50 mg TID 11/22/16 14:00 Insulin Aspart (Novolog) 0-9 UNITS TIDWMEALS 11/21/16 08:00 11/22/16 11:57 5 UNITS Labetalol HCl (Normodyne) 10 mg PRN Q2HR PRN 11/22/16 09:45 Magnesium Sulfate/ Dextrose (Magnesium Sulfate PREMIX 2GM) 50 ml @ 25 mls/hr PRN DAILY PRN 11/21/16 15:15 Multivitamins/ Calcium (Thera M Plus) 1 tab DAILY 11/21/16 09:00 11/22/16 08:11 1 TAB Nifedipine (Procardia Xl) 90 mg DAILY 11/21/16 09:00 11/22/16 08:12 90 MG Sodium Chloride (Iv Sodium Chloride 0.9% 1000ml Bag) 1,000 ml @ 100 mls/hr Q10H 11/21/16 07:23 11/22/16 07:22 DC 11/22/16 10:45 100 MLS/HR Lab Laboratory Tests Test 11/21/16 15:50 11/21/16 16:29 11/21/16 20:34 11/22/16 04:40 Reticulocyte Count (auto) 0.8% (0.5-2.5) Uric Acid 5.5mg/dL (3.5-7.2) Iron Level 30ug/dL (65-175) Total Iron Binding Capacity 267ug/dL (250-450) Iron Saturation 11% (15-34) Ferritin 216ng/mL (26-388) Creatine Kinase 152U/L (39-308) Vitamin B12 Level 328pg/mL (211-946) Glucose (Fingerstick) 112mg/dL (70-99) 129mg/dL (70-99) White Blood Count 8.2x10^3/uL (4.0-11.0) Red Blood Count 3.86x10^6/uL (4.30-5.70) Hemoglobin 10.8g/dL (13.0-17.5) Hematocrit 32.1% (39.0-53.0) Mean Corpuscular Volume 83fL (79-100) Mean Corpuscular Hemoglobin 28pg (25-35) Mean Corpuscular Hemoglobin Concent 34g/dL (31-37) Red Cell Distribution Width 12.8% (11.5-14.5) Platelet Count 244x10^3/uL (140-400) Neutrophils (%) (Auto) 71% (31-73) Lymphocytes (%) (Auto) 14% (24-48) Monocytes (%) (Auto) 12% (0-9) Eosinophils (%) (Auto) 3% (0-3) Basophils (%) (Auto) 1% (0-3) Neutrophils # (Auto) 5.8x10^3uL (1.8-7.7) Lymphocytes # (Auto) 1.1x10^3/uL (1.0-4.8) Monocytes # (Auto) 1.0x10^3/uL (0.0-1.1) Eosinophils # (Auto) 0.2x10^3/uL (0.0-0.7) Basophils # (Auto) 0.0x10^3/uL (0.0-0.2) Sodium Level 140mmol/L (136-145) Potassium Level 3.6mmol/L (3.5-5.1) Chloride Level 105mmol/L (98-107) Carbon Dioxide Level 22mmol/L (21-32) Anion Gap 13 (6-14) Blood Urea Nitrogen 30mg/dL (8-26) Creatinine 2.3mg/dL (0.7-1.3) Estimated GFR (Cockcroft-Gault) 27.0 Glucose Level 121mg/dL (70-99) Calcium Level 8.7mg/dL (8.5-10.1) Phosphorus Level 3.6mg/dL (2.6-4.7) Magnesium Level 1.7mg/dL (1.8-2.4) Albumin 3.3g/dL (3.4-5.0) Test 11/22/16 07:01 11/22/16 11:09 Glucose (Fingerstick) 136mg/dL (70-99) 202mg/dL (70-99) TIM TURNER MD Nov 22, 2016 12:51
[2016-11-22] MEDS ORDERED: MAGNESIUM SULFATE 1GM 100 ML IV ONE (13:30)
[2016-11-22 14:14] LABS: PTH INTACT 94 pg/mL (15-65)
--- NOTE | 2016-11-22 14:23 | PDOC ---
PROGRESS NOTES Chief Complaint Chief Complaint 1. JENNIFER unknown if CKD 2. DM 2 on OHA since 1981 3. HTN, controlled 4. Proteinuria 5. Wheezy, possibly undiagnosed COPD? 6. Prev smoker History of Present Illness History of Present Illness Wheezy today\ Dry cough CXR on admission neg CRea 2.3 from 2.6. IVF running at 100cc/hr Other renal tests pendingDtr at bedside - very involved in care, updated on status PLAN: STart PO pred Cough med scheduled Duonebs scheduled Will need Out pt PFT Cont iVF Renal panel alexy Await renal tests Await PT/OT (was weak, reason for admit )- they have not seen yet Otherwise, pretty good fcn for 86 y/o Vitals Vitals Vital Signs Date Time Temp Pulse Resp B/P Pulse Ox O2 Delivery O2 Flow Rate FiO2 11/22/16 11:00 93 18 165/90 97 Room Air 11/22/16 07:00 97.9 97.9 Physical Exam General: Alert, Oriented X3, Cooperative, No acute distress Extremities: No clubbing, No cyanosis, No edema, Normal pulses, No tenderness/ swelling Skin: No rashes, No breakdown, No significant lesion Labs LABS Laboratory Tests Test 11/21/16 15:50 11/21/16 16:29 11/21/16 20:34 11/22/16 04:40 Reticulocyte Count (auto) 0.8% (0.5-2.5) Estimated GFR (Non- 25 (>59) Uric Acid 5.5mg/dL (3.5-7.2) Iron Level 30ug/dL (65-175) Total Iron Binding Capacity 267ug/dL (250-450) Iron Saturation 11% (15-34) Ferritin 216ng/mL (26-388) Creatine Kinase 152U/L (39-308) EGFR 29 (>59) Vitamin B12 Level 328pg/mL (211-946) PTH (Intact) Specimen Description Comment (.) Parathyroid Hormone (Intact) 94pg/mL (15-65) Calcium (PTH Intact) 8.5mg/dL (8.6-10.2) Creatinine (PTH Intact) 2.26mg/dL (0.76-1.27) Phosphorus (PTH Intact) 4.1mg/dL (2.5-4.5) Glucose (Fingerstick) 112mg/dL (70-99) 129mg/dL (70-99) White Blood Count 8.2x10^3/uL (4.0-11.0) Red Blood Count 3.86x10^6/uL (4.30-5.70) Hemoglobin 10.8g/dL (13.0-17.5) Hematocrit 32.1% (39.0-53.0) Mean Corpuscular Volume 83fL (79-100) Mean Corpuscular Hemoglobin 28pg (25-35) Mean Corpuscular Hemoglobin Concent 34g/dL (31-37) Red Cell Distribution Width 12.8% (11.5-14.5) Platelet Count 244x10^3/uL (140-400) Neutrophils (%) (Auto) 71% (31-73) Lymphocytes (%) (Auto) 14% (24-48) Monocytes (%) (Auto) 12% (0-9) Eosinophils (%) (Auto) 3% (0-3) Basophils (%) (Auto) 1% (0-3) Neutrophils # (Auto) 5.8x10^3uL (1.8-7.7) Lymphocytes # (Auto) 1.1x10^3/uL (1.0-4.8) Monocytes # (Auto) 1.0x10^3/uL (0.0-1.1) Eosinophils # (Auto) 0.2x10^3/uL (0.0-0.7) Basophils # (Auto) 0.0x10^3/uL (0.0-0.2) Sodium Level 140mmol/L (136-145) Potassium Level 3.6mmol/L (3.5-5.1) Chloride Level 105mmol/L (98-107) Carbon Dioxide Level 22mmol/L (21-32) Anion Gap 13 (6-14) Blood Urea Nitrogen 30mg/dL (8-26) Creatinine 2.3mg/dL (0.7-1.3) Estimated GFR (Cockcroft-Gault) 27.0 Glucose Level 121mg/dL (70-99) Calcium Level 8.7mg/dL (8.5-10.1) Phosphorus Level 3.6mg/dL (2.6-4.7) Magnesium Level 1.7mg/dL (1.8-2.4) Albumin 3.3g/dL (3.4-5.0) Test 11/22/16 07:01 11/22/16 11:09 Glucose (Fingerstick) 136mg/dL (70-99) 202mg/dL (70-99) Review of Systems Review of Systems wheezy, dry cough, no cp, no abd pain Assessment and Plan Assessmemt and Plan Problems Medical Problems: (1) Acute renal failure Status: Acute Problems: Comment Review of Relevant I have reviewed the following items astrid (where applicable) has been applied. Labs Laboratory Tests Test 11/21/16 02:27 11/21/16 03:44 11/21/16 07:34 11/21/16 10:47 White Blood Count 10.8x10^3/uL (4.0-11.0) Red Blood Count 3.94x10^6/uL (4.30-5.70) Hemoglobin 10.8g/dL (13.0-17.5) Hematocrit 33.0% (39.0-53.0) Mean Corpuscular Volume 84fL (79-100) Mean Corpuscular Hemoglobin 27pg (25-35) Mean Corpuscular Hemoglobin Concent 33g/dL (31-37) Red Cell Distribution Width 13.0% (11.5-14.5) Platelet Count 286x10^3/uL (140-400) Neutrophils (%) (Auto) 84% (31-73) Lymphocytes (%) (Auto) 4% (24-48) Monocytes (%) (Auto) 9% (0-9) Eosinophils (%) (Auto) 2% (0-3) Basophils (%) (Auto) 0% (0-3) Neutrophils # (Auto) 9.1x10^3uL (1.8-7.7) Lymphocytes # (Auto) 0.4x10^3/uL (1.0-4.8) Monocytes # (Auto) 1.0x10^3/uL (0.0-1.1) Eosinophils # (Auto) 0.2x10^3/uL (0.0-0.7) Basophils # (Auto) 0.0x10^3/uL (0.0-0.2) Sodium Level 139mmol/L (136-145) Potassium Level 4.0mmol/L (3.5-5.1) Chloride Level 102mmol/L (98-107) Carbon Dioxide Level 25mmol/L (21-32) Anion Gap 12 (6-14) Blood Urea Nitrogen 37mg/dL (8-26) Creatinine 2.6mg/dL (0.7-1.3) Estimated GFR (Cockcroft-Gault) 23.4 BUN/Creatinine Ratio 14 (6-20) Glucose Level 182mg/dL (70-99) Calcium Level 9.0mg/dL (8.5-10.1) Total Bilirubin 0.4mg/dL (0.2-1.0) Aspartate Amino Transf (AST/SGOT) 27U/L (15-37) Alanine Aminotransferase (ALT/SGPT) 30U/L (16-63) Alkaline Phosphatase 98U/L (46-116) Troponin I Quantitative < 0.017ng/mL (0.000-0.055) VV-Owi-N-Type Natriuretic Peptide 1222pg/mL (0-449) Total Protein 7.6g/dL (6.4-8.2) Albumin 3.5g/dL (3.4-5.0) Albumin/Globulin Ratio 0.9 (1.0-1.7) Influenza Type A Antigen Negative (NEGATIVE) Influenza Type B Antigen Negative (NEGATIVE) Urine Collection Type Unknown Urine Color Yellow Urine Clarity Clear Urine pH 6.0 Urine Specific [place] 1.020 Urine Protein >=300mg/dL (NEG-TRACE) Urine Glucose (UA) 100mg/dL (NEG) Urine Ketones (Stick) Negativemg/dL (NEG) Urine Blood Negative (NEG) Urine Nitrite Negative (NEG) Urine Bilirubin Negative (NEG) Urine Urobilinogen Dipstick 0.2mg/dL (0.2 mg/dL) Urine Leukocyte Esterase Negative (NEG) Urine RBC 1-2/HPF (0-2) Urine WBC Occ/HPF (0-4) Urine Squamous Epithelial Cells Few/LPF Urine Bacteria 0/HPF (0-FEW) Urine Mucus Slight/LPF Glucose (Fingerstick) 174mg/dL (70-99) 160mg/dL (70-99) Test 11/21/16 15:50 11/21/16 16:29 11/21/16 20:34 2/19/17 04:40 Reticulocyte Count (auto) 0.8% (0.5-2.5) Estimated GFR (Non- 25 (>59) Uric Acid 5.5mg/dL (3.5-7.2) Iron Level 30ug/dL (65-175) Total Iron Binding Capacity 267ug/dL (250-450) Iron Saturation 11% (15-34) Ferritin 216ng/mL (26-388) Creatine Kinase 152U/L (39-308) EGFR 29 (>59) Vitamin B12 Level 328pg/mL (211-946) PTH (Intact) Specimen Description Comment (.) Parathyroid Hormone (Intact) 94pg/mL (15-65) Calcium (PTH Intact) 8.5mg/dL (8.6-10.2) Creatinine (PTH Intact) 2.26mg/dL (0.76-1.27) Phosphorus (PTH Intact) 4.1mg/dL (2.5-4.5) Glucose (Fingerstick) 112mg/dL (70-99) 129mg/dL (70-99) White Blood Count 8.2x10^3/uL (4.0-11.0) Red Blood Count 3.86x10^6/uL (4.30-5.70) Hemoglobin 10.8g/dL (13.0-17.5) Hematocrit 32.1% (39.0-53.0) Mean Corpuscular Volume 83fL (79-100) Mean Corpuscular Hemoglobin 28pg (25-35) Mean Corpuscular Hemoglobin Concent 34g/dL (31-37) Red Cell Distribution Width 12.8% (11.5-14.5) Platelet Count 244x10^3/uL (140-400) Neutrophils (%) (Auto) 71% (31-73) Lymphocytes (%) (Auto) 14% (24-48) Monocytes (%) (Auto) 12% (0-9) Eosinophils (%) (Auto) 3% (0-3) Basophils (%) (Auto) 1% (0-3) Neutrophils # (Auto) 5.8x10^3uL (1.8-7.7) Lymphocytes # (Auto) 1.1x10^3/uL (1.0-4.8) Monocytes # (Auto) 1.0x10^3/uL (0.0-1.1) Eosinophils # (Auto) 0.2x10^3/uL (0.0-0.7) Basophils # (Auto) 0.0x10^3/uL (0.0-0.2) Sodium Level 140mmol/L (136-145) Potassium Level 3.6mmol/L (3.5-5.1) Chloride Level 105mmol/L (98-107) Carbon Dioxide Level 22mmol/L (21-32) Anion Gap 13 (6-14) Blood Urea Nitrogen 30mg/dL (8-26) Creatinine 2.3mg/dL (0.7-1.3) Estimated GFR (Cockcroft-Gault) 27.0 Glucose Level 121mg/dL (70-99) Calcium Level 8.7mg/dL (8.5-10.1) Phosphorus Level 3.6mg/dL (2.6-4.7) Magnesium Level 1.7mg/dL (1.8-2.4) Albumin 3.3g/dL (3.4-5.0) Test 11/22/16 07:01 11/22/16 11:09 Glucose (Fingerstick) 136mg/dL (70-99) 202mg/dL (70-99) Laboratory Tests Test 11/21/16 15:50 11/21/16 16:29 11/21/16 20:34 11/22/16 04:40 Reticulocyte Count (auto) 0.8% (0.5-2.5) Estimated GFR (Non- 25 (>59) Uric Acid 5.5mg/dL (3.5-7.2) Iron Level 30ug/dL (65-175) Total Iron Binding Capacity 267ug/dL (250-450) Iron Saturation 11% (15-34) Ferritin 216ng/mL (26-388) Creatine Kinase 152U/L (39-308) EGFR 29 (>59) Vitamin B12 Level 328pg/mL (211-946) PTH (Intact) Specimen Description Comment (.) Parathyroid Hormone (Intact) 94pg/mL (15-65) Calcium (PTH Intact) 8.5mg/dL (8.6-10.2) Creatinine (PTH Intact) 2.26mg/dL (0.76-1.27) Phosphorus (PTH Intact) 4.1mg/dL (2.5-4.5) Glucose (Fingerstick) 112mg/dL (70-99) 129mg/dL (70-99) White Blood Count 8.2x10^3/uL (4.0-11.0) Red Blood Count 3.86x10^6/uL (4.30-5.70) Hemoglobin 10.8g/dL (13.0-17.5) Hematocrit 32.1% (39.0-53.0) Mean Corpuscular Volume 83fL (79-100) Mean Corpuscular Hemoglobin 28pg (25-35) Mean Corpuscular Hemoglobin Concent 34g/dL (31-37) Red Cell Distribution Width 12.8% (11.5-14.5) Platelet Count 244x10^3/uL (140-400) Neutrophils (%) (Auto) 71% (31-73) Lymphocytes (%) (Auto) 14% (24-48) Monocytes (%) (Auto) 12% (0-9) Eosinophils (%) (Auto) 3% (0-3) Basophils (%) (Auto) 1% (0-3) Neutrophils # (Auto) 5.8x10^3uL (1.8-7.7) Lymphocytes # (Auto) 1.1x10^3/uL (1.0-4.8) Monocytes # (Auto) 1.0x10^3/uL (0.0-1.1) Eosinophils # (Auto) 0.2x10^3/uL (0.0-0.7) Basophils # (Auto) 0.0x10^3/uL (0.0-0.2) Sodium Level 140mmol/L (136-145) Potassium Level 3.6mmol/L (3.5-5.1) Chloride Level 105mmol/L (98-107) Carbon Dioxide Level 22mmol/L (21-32) Anion Gap 13 (6-14) Blood Urea Nitrogen 30mg/dL (8-26) Creatinine 2.3mg/dL (0.7-1.3) Estimated GFR (Cockcroft-Gault) 27.0 Glucose Level 121mg/dL (70-99) Calcium Level 8.7mg/dL (8.5-10.1) Phosphorus Level 3.6mg/dL (2.6-4.7) Magnesium Level 1.7mg/dL (1.8-2.4) Albumin 3.3g/dL (3.4-5.0) Test 11/22/16 07:01 11/22/16 11:09 Glucose (Fingerstick) 136mg/dL (70-99) 202mg/dL (70-99) Medications Current Medications Albuterol/ Ipratropium 3 ml 3 ml 1X ONCE NEB Last administered on 11/21/16 02 :36; Start 11/21/16 at 02:45; Stop 11/21/16 at 02:46; Status DC Sodium Chloride 1,000 ml @ 100 mls/hr 1X ONCE IV Last administered on 04:59; Start 11/21/16 at 05:00; Stop 11/21/16 at 14:59; Status DC Sodium Chloride (Iv Sodium Chloride 0.9% 1000ml Bag) 1,000 ml @ 100 mls/hr Q10H IV Last administered on 11/22/16 10:45; Start 11/21/16 at 07:23; Stop at 07:22; Status DC Acetaminophen (Tylenol) 650 mg PRN Q4HRS PRN PO FEVER; Start 11/21/16 at 07:30 ; Stop 11/22/16 at 07:29; Status DC Albuterol/ Ipratropium (Duoneb) 3 ml RTQID NEB ; Start 11/21/16 at 08:00; Stop 11/22/16 at 07:59; Status DC Hydralazine HCl (Apresoline) 25 mg TID PO Last administered on 11/22/16 08:11 ; Start 11/21/16 at 09:00; Stop 11/22/16 at 09:37; Status DC Glipizide (Glucotrol) 10 mg BIDBFRMEAL PO Last administered on 11/22/16 08:11 ; Start 11/21/16 at 08:00 Multivitamins/ Calcium (Thera M Plus) 1 tab DAILY PO Last administered on 08:11; Start 11/21/16 at 09:00 Nifedipine (Procardia Xl) 90 mg DAILY PO Last administered on 11/22/16 08:12; Start 11/21/16 at 09:00 Insulin Aspart (Novolog) 0-9 UNITS TIDWMEALS SQ Last administered on 11/22/16 11:57; Start 11/21/16 at 08:00 Dextrose 12.5 gm 12.5 gm PRN Q15MIN PRN IV SEE COMMENTS; Start 11/21/16 at 08: 00 Magnesium Sulfate/ Dextrose (Magnesium Sulfate PREMIX 2GM) 50 ml @ 25 mls/hr PRN DAILY PRN IV for Mag < 1.7 on am labs; Start 11/21/16 at 15:15 Hydralazine HCl (Apresoline) 50 mg TID PO ; Start 11/22/16 at 14:00 Labetalol HCl 10 mg 10 mg PRN Q2HR PRN IVP HYPERTENSION, SEE COMMENTS; Start at 09:45 Iron Sucrose 200 mg/Sodium Chloride 110 ml @ 55 mls/hr 3X/WEEK IV ; Start 11/22 at 14:00; Stop 11/30/16 at 10:59 Magnesium Sulfate/ Dextrose (Magnesium Sulfate PREMIX 1GM) 100 ml @ 100 mls/hr 1X ONCE IV Last administered on 11/22/16 13:21; Start 11/22/16 at 13:30; Stop 11/22/16 at 14:29 Active Scripts Active Reported Centrum Men's Tablet (Multivits,Ca,Min/Iron/FA/Lycop) 1 Each Tablet 1 Each PO DAILY Nifedipine Er (Nifedipine) 90 Mg Tab.er.24 90 Mg PO DAILY Hydralazine Hcl 25 Mg Tablet 25 Mg PO TID Irbesartan 300 Mg Tablet 300 Mg PO DAILY Glipizide 10 Mg Tablet 10 Mg PO BIDAC Vitals/I & O Vital Sign - Last 24 Hours 11/21/16 11/21/16 11/21/16 11/21/16 14:51 15:23 19:00 20:00 Temp 98.2 97.9 98.2 97.9 Pulse 91 91 87 Resp 18 18 B/P 132/87 132/87 155/86 Pulse Ox 99 97 O2 Delivery Room Air Room Air Room Air 11/21/16 11/21/16 11/22/16 11/22/16 20:27 22:33 07:00 07:50 Temp 98.5 97.9 98.5 97.9 Pulse 87 92 93 Resp 18 18 B/P 155/86 156/93 174/95 Pulse Ox 96 97 O2 Delivery Room Air Room Air Room Air 11/22/16 11/22/16 11/22/16 08:11 08:12 11:00 Pulse 93 93 93 Resp 18 B/P 174/95 174/95 165/90 Pulse Ox 97 O2 Delivery Room Air Intake and Output 11/21/16 11/21/16 11/22/16 15:00 23:00 07:00 Intake Total 360 ml 200 ml Output Total 280 ml 250 ml 850 ml Balance -280 ml 110 ml -650 ml KALE RAMIREZ MD Nov 22, 2016 14:22
[2016-11-22] MEDS ORDERED: ALBUTEROL SULFATE 2.5 MG/3 ML NEBU. NEB PRN (14:30)
[2016-11-22 14:43] VITALS: BP 160/87
[2016-11-22] MEDS: IPRATRPIUM/ALBUTEROL 0.5/2.5MG 3 ML NEBU. NEB SCH ×3 (14:45→21:37)
[2016-11-22] MEDS: GUAIFENESIN DM 200MG/20MG 10 ML SYRUP. PO SCH ×3 (15:18→21:00)
[2016-11-22] MEDS: HYDRALAZINE 50 MG TABLET PO SCH ×2 (15:18→21:33)
[2016-11-22] MEDS: PREDNISONE 20 MG TABLET PO SCH (15:18)
[2016-11-22] MEDS: IRON SUCROSE COMPLEX 200 MG in IV NORMAL SALINE 100ML 100 ML IV SCH (15:19)
[2016-11-22 19:00] VITALS: BP 112/63
--- NOTE | 2016-11-22 21:36 | PDOC2 ---
NEUROLOGY CONSULT Date of Admission Date of Admission Full Report Dictated DATE: 11/22/16 TIME: 21:34 Current Medications Current Medications Current Medications Albuterol/ Ipratropium 3 ml 3 ml 1X ONCE NEB Last administered on 11/21/16 02 :36; Start 11/21/16 at 02:45; Stop 11/21/16 at 02:46; Status DC Sodium Chloride 1,000 ml @ 100 mls/hr 1X ONCE IV Last administered on 04:59; Start 11/21/16 at 05:00; Stop 11/21/16 at 14:59; Status DC Sodium Chloride (Iv Sodium Chloride 0.9% 1000ml Bag) 1,000 ml @ 100 mls/hr Q10H IV Last administered on 11/22/16 10:45; Start 11/21/16 at 07:23; Stop at 07:22; Status DC Acetaminophen (Tylenol) 650 mg PRN Q4HRS PRN PO FEVER; Start 11/21/16 at 07:30 ; Stop 11/22/16 at 07:29; Status DC Albuterol/ Ipratropium (Duoneb) 3 ml RTQID NEB ; Start 11/21/16 at 08:00; Stop 11/22/16 at 07:59; Status DC Hydralazine HCl (Apresoline) 25 mg TID PO Last administered on 11/22/16 08:11 ; Start 11/21/16 at 09:00; Stop 11/22/16 at 09:37; Status DC Glipizide (Glucotrol) 10 mg BIDBFRMEAL PO Last administered on 11/22/16 17:16 ; Start 11/21/16 at 08:00 Multivitamins/ Calcium (Thera M Plus) 1 tab DAILY PO Last administered on 08:11; Start 11/21/16 at 09:00 Nifedipine (Procardia Xl) 90 mg DAILY PO Last administered on 11/22/16 08:12; Start 11/21/16 at 09:00 Insulin Aspart (Novolog) 0-9 UNITS TIDWMEALS SQ Last administered on 11/22/16 11:57; Start 11/21/16 at 08:00 Dextrose 12.5 gm 12.5 gm PRN Q15MIN PRN IV SEE COMMENTS; Start 11/21/16 at 08: 00 Magnesium Sulfate/ Dextrose (Magnesium Sulfate PREMIX 2GM) 50 ml @ 25 mls/hr PRN DAILY PRN IV for Mag < 1.7 on am labs; Start 11/21/16 at 15:15 Hydralazine HCl (Apresoline) 50 mg TID PO Last administered on 11/22/16 15:18 ; Start 11/22/16 at 14:00 Labetalol HCl 10 mg 10 mg PRN Q2HR PRN IVP HYPERTENSION, SEE COMMENTS; Start at 09:45 Iron Sucrose 200 mg/Sodium Chloride 110 ml @ 55 mls/hr 3X/WEEK IV Last administered on 11/22/16 15:19; Start 11/22/16 at 14:00; Stop 11/30/16 at 10:59 Magnesium Sulfate/ Dextrose (Magnesium Sulfate PREMIX 1GM) 100 ml @ 100 mls/hr 1X ONCE IV Last administered on 11/22/16 13:21; Start 11/22/16 at 13:30; Stop 11/22/16 at 14:29; Status DC Prednisone (Prednisone) 40 mg DAILY PO Last administered on 11/22/16 15:18; Start 11/22/16 at 15:00 Guaifenesin (Robitussin Dm) 10 ml QID PO Last administered on 11/22/16 17:16; Start 11/22/16 at 14:30 Albuterol/ Ipratropium (Duoneb) 3 ml RTQID NEB Last administered on 11/22/16 14:45; Start 11/22/16 at 16:00 Albuterol Sulfate (Ventolin Neb Soln) 2.5 mg PRN Q4HRS PRN NEB SHORTNESS OF BREATH; Start 11/22/16 at 14:30 Active Scripts Active Reported Centrum Men's Tablet (Multivits,Ca,Min/Iron/FA/Lycop) 1 Each Tablet 1 Each PO DAILY Nifedipine Er (Nifedipine) 90 Mg Tab.er.24 90 Mg PO DAILY Hydralazine Hcl 25 Mg Tablet 25 Mg PO TID Irbesartan 300 Mg Tablet 300 Mg PO DAILY Glipizide 10 Mg Tablet 10 Mg PO BIDAC Allergies Allergies: Coded Allergies: No Known Drug Allergies (Unverified , 11/21/16) Vitals VITALS Vital Signs Date Time Temp Pulse Resp B/P Pulse Ox O2 Delivery O2 Flow Rate FiO2 11/22/16 19:00 98.2 103 18 112/63 97 Room Air 98.2 Labs Labs Laboratory Tests Test 11/21/16 02:27 11/21/16 03:44 11/21/16 07:34 11/21/16 10:47 White Blood Count 10.8x10^3/uL (4.0-11.0) Red Blood Count 3.94x10^6/uL (4.30-5.70) Hemoglobin 10.8g/dL (13.0-17.5) Hematocrit 33.0% (39.0-53.0) Mean Corpuscular Volume 84fL (79-100) Mean Corpuscular Hemoglobin 27pg (25-35) Mean Corpuscular Hemoglobin Concent 33g/dL (31-37) Red Cell Distribution Width 13.0% (11.5-14.5) Platelet Count 286x10^3/uL (140-400) Neutrophils (%) (Auto) 84% (31-73) Lymphocytes (%) (Auto) 4% (24-48) Monocytes (%) (Auto) 9% (0-9) Eosinophils (%) (Auto) 2% (0-3) Basophils (%) (Auto) 0% (0-3) Neutrophils # (Auto) 9.1x10^3uL (1.8-7.7) Lymphocytes # (Auto) 0.4x10^3/uL (1.0-4.8) Monocytes # (Auto) 1.0x10^3/uL (0.0-1.1) Eosinophils # (Auto) 0.2x10^3/uL (0.0-0.7) Basophils # (Auto) 0.0x10^3/uL (0.0-0.2) Sodium Level 139mmol/L (136-145) Potassium Level 4.0mmol/L (3.5-5.1) Chloride Level 102mmol/L (98-107) Carbon Dioxide Level 25mmol/L (21-32) Anion Gap 12 (6-14) Blood Urea Nitrogen 37mg/dL (8-26) Creatinine 2.6mg/dL (0.7-1.3) Estimated GFR (Cockcroft-Gault) 23.4 BUN/Creatinine Ratio 14 (6-20) Glucose Level 182mg/dL (70-99) Calcium Level 9.0mg/dL (8.5-10.1) Total Bilirubin 0.4mg/dL (0.2-1.0) Aspartate Amino Transf (AST/SGOT) 27U/L (15-37) Alanine Aminotransferase (ALT/SGPT) 30U/L (16-63) Alkaline Phosphatase 98U/L (46-116) Troponin I Quantitative < 0.017ng/mL (0.000-0.055) DI-Umx-S-Type Natriuretic Peptide 1222pg/mL (0-449) Total Protein 7.6g/dL (6.4-8.2) Albumin 3.5g/dL (3.4-5.0) Albumin/Globulin Ratio 0.9 (1.0-1.7) Influenza Type A Antigen Negative (NEGATIVE) Influenza Type B Antigen Negative (NEGATIVE) Urine Collection Type Unknown Urine Color Yellow Urine Clarity Clear Urine pH 6.0 Urine Specific [place] 1.020 Urine Protein >=300mg/dL (NEG-TRACE) Urine Glucose (UA) 100mg/dL (NEG) Urine Ketones (Stick) Negativemg/dL (NEG) Urine Blood Negative (NEG) Urine Nitrite Negative (NEG) Urine Bilirubin Negative (NEG) Urine Urobilinogen Dipstick 0.2mg/dL (0.2 mg/dL) Urine Leukocyte Esterase Negative (NEG) Urine RBC 1-2/HPF (0-2) Urine WBC Occ/HPF (0-4) Urine Squamous Epithelial Cells Few/LPF Urine Bacteria 0/HPF (0-FEW) Urine Mucus Slight/LPF Glucose (Fingerstick) 174mg/dL (70-99) 160mg/dL (70-99) Test 11/21/16 15:50 11/21/16 16:29 11/21/16 20:34 11/22/16 04:40 Reticulocyte Count (auto) 0.8% (0.5-2.5) Estimated GFR (Non- 25 (>59) Uric Acid 5.5mg/dL (3.5-7.2) Iron Level 30ug/dL (65-175) Total Iron Binding Capacity 267ug/dL (250-450) Iron Saturation 11% (15-34) Ferritin 216ng/mL (26-388) Creatine Kinase 152U/L (39-308) EGFR 29 (>59) Vitamin B12 Level 328pg/mL (211-946) PTH (Intact) Specimen Description Comment (.) Parathyroid Hormone (Intact) 94pg/mL (15-65) Calcium (PTH Intact) 8.5mg/dL (8.6-10.2) Creatinine (PTH Intact) 2.26mg/dL (0.76-1.27) Phosphorus (PTH Intact) 4.1mg/dL (2.5-4.5) Glucose (Fingerstick) 112mg/dL (70-99) 129mg/dL (70-99) White Blood Count 8.2x10^3/uL (4.0-11.0) Red Blood Count 3.86x10^6/uL (4.30-5.70) Hemoglobin 10.8g/dL (13.0-17.5) Hematocrit 32.1% (39.0-53.0) Mean Corpuscular Volume 83fL (79-100) Mean Corpuscular Hemoglobin 28pg (25-35) Mean Corpuscular Hemoglobin Concent 34g/dL (31-37) Red Cell Distribution Width 12.8% (11.5-14.5) Platelet Count 244x10^3/uL (140-400) Neutrophils (%) (Auto) 71% (31-73) Lymphocytes (%) (Auto) 14% (24-48) Monocytes (%) (Auto) 12% (0-9) Eosinophils (%) (Auto) 3% (0-3) Basophils (%) (Auto) 1% (0-3) Neutrophils # (Auto) 5.8x10^3uL (1.8-7.7) Lymphocytes # (Auto) 1.1x10^3/uL (1.0-4.8) Monocytes # (Auto) 1.0x10^3/uL (0.0-1.1) Eosinophils # (Auto) 0.2x10^3/uL (0.0-0.7) Basophils # (Auto) 0.0x10^3/uL (0.0-0.2) Sodium Level 140mmol/L (136-145) Potassium Level 3.6mmol/L (3.5-5.1) Chloride Level 105mmol/L (98-107) Carbon Dioxide Level 22mmol/L (21-32) Anion Gap 13 (6-14) Blood Urea Nitrogen 30mg/dL (8-26) Creatinine 2.3mg/dL (0.7-1.3) Estimated GFR (Cockcroft-Gault) 27.0 Glucose Level 121mg/dL (70-99) Calcium Level 8.7mg/dL (8.5-10.1) Phosphorus Level 3.6mg/dL (2.6-4.7) Magnesium Level 1.7mg/dL (1.8-2.4) Albumin 3.3g/dL (3.4-5.0) Test 11/22/16 07:01 11/22/16 11:09 11/22/16 15:54 11/22/16 17:03 Glucose (Fingerstick) 136mg/dL (70-99) 202mg/dL (70-99) 164mg/dL (70-99) 153mg/dL (70-99) Test 11/22/16 20:16 Glucose (Fingerstick) 317mg/dL (70-99) Laboratory Tests Test 11/22/16 04:40 11/22/16 07:01 11/22/16 11:09 11/22/16 15:54 White Blood Count 8.2x10^3/uL (4.0-11.0) Red Blood Count 3.86x10^6/uL (4.30-5.70) Hemoglobin 10.8g/dL (13.0-17.5) Hematocrit 32.1% (39.0-53.0) Mean Corpuscular Volume 83fL (79-100) Mean Corpuscular Hemoglobin 28pg (25-35) Mean Corpuscular Hemoglobin Concent 34g/dL (31-37) Red Cell Distribution Width 12.8% (11.5-14.5) Platelet Count 244x10^3/uL (140-400) Neutrophils (%) (Auto) 71% (31-73) Lymphocytes (%) (Auto) 14% (24-48) Monocytes (%) (Auto) 12% (0-9) Eosinophils (%) (Auto) 3% (0-3) Basophils (%) (Auto) 1% (0-3) Neutrophils # (Auto) 5.8x10^3uL (1.8-7.7) Lymphocytes # (Auto) 1.1x10^3/uL (1.0-4.8) Monocytes # (Auto) 1.0x10^3/uL (0.0-1.1) Eosinophils # (Auto) 0.2x10^3/uL (0.0-0.7) Basophils # (Auto) 0.0x10^3/uL (0.0-0.2) Sodium Level 140mmol/L (136-145) Potassium Level 3.6mmol/L (3.5-5.1) Chloride Level 105mmol/L (98-107) Carbon Dioxide Level 22mmol/L (21-32) Anion Gap 13 (6-14) Blood Urea Nitrogen 30mg/dL (8-26) Creatinine 2.3mg/dL (0.7-1.3) Estimated GFR (Cockcroft-Gault) 27.0 Glucose Level 121mg/dL (70-99) Calcium Level 8.7mg/dL (8.5-10.1) Phosphorus Level 3.6mg/dL (2.6-4.7) Magnesium Level 1.7mg/dL (1.8-2.4) Albumin 3.3g/dL (3.4-5.0) Glucose (Fingerstick) 136mg/dL (70-99) 202mg/dL (70-99) 164mg/dL (70-99) Test 11/22/16 17:03 11/22/16 20:16 Glucose (Fingerstick) 153mg/dL (70-99) 317mg/dL (70-99) Assessment/Plan Assessment/Plan Saritha Hurd is a pleasant 86-year-old man who's had progressive generalized weakness and increasing tremor over the last month. He is found to be in acute renal failure, iron deficient and having several metabolic disturbances. He is also having congestive heart failure with an elevated BNP and dyspnea with minimal exertion. He is currently receiving an albuterol by nebulizer. All of these things make essential tremor worse. He does not have Parkinson's disease and he does not have resting tremor, bradykinesia or rigidity. If he improves with his underlying metabolic disturbances in the tremor will likely improve. If the tremor is still impairing then we could consider a very slow titration of Mysoline. ISABELA CAAL MD Nov 22, 2016 21:35
[2016-11-22 22:43] VITALS: BP 131/79
[2016-11-23 03:21] VITALS: BP 116/72
[2016-11-23 04:43] LABS: ALBUMIN 2.9 g/dL (3.4-5.0); CALCIUM 8.4 mg/dL (8.5-10.1); CREATININE 2.6 mg/dL (0.7-1.3); GFR 23.4; PHOSPHORUS 4.3 mg/dL (2.6-4.7); POTASSIUM 4.2 mmol/L (3.5-5.1)
[2016-11-23 07:00] VITALS: BP 141/78
[2016-11-23] MEDS: IPRATRPIUM/ALBUTEROL 0.5/2.5MG 3 ML NEBU. NEB SCH ×4 (07:06→19:57)
[2016-11-23] MEDS: GLIPIZIDE 5 MG TABLET PO SCH ×2 (08:32→17:07)
[2016-11-23] MEDS: HYDRALAZINE 50 MG TABLET PO SCH ×3 (08:32→22:06)
[2016-11-23] MEDS: PREDNISONE 20 MG TABLET PO SCH (08:32)
[2016-11-23] MEDS: MULTIVITAMIN with MINERAL TABLET. PO SCH (08:32)
[2016-11-23] MEDS: GUAIFENESIN DM 200MG/20MG 10 ML SYRUP. PO SCH ×4 (08:33→21:00)
[2016-11-23] MEDS: NIFEDIPINE ER 30 MG TAB.ER.24H PO SCH (08:33)
--- NOTE | 2016-11-23 08:34 | CONS ---
DATE OF CONSULTATION: 11/22/2016 REFERRING PHYSICIAN: Dr. Michelle. REASON FOR CONSULTATION: Progressive tremor. HISTORY OF PRESENT ILLNESS: The patient is a very pleasant, 86-year-old man, who presented to the hospital because over the last month, he has become progressively more weak. He usually gets around very well with a walker. He and his live independently in their own home. He is able accomplish his activities of daily living. In the last month, he has noticed that he has gotten generally weaker, short of breath, and has had progressive tremor. The tremor is generally with movements more than rest. Sometimes if he gets up quickly, he will fall back in the bed because he is dizzy. With minimal exertion, he has become short of breath. He does not complain of any numbness. He has not had headaches or trouble swallowing. He has noticed some weight loss over the last few months of about 10 pounds. This was not deliberate. PAST MEDICAL HISTORY: 1. Diabetes since the 1980s. 2. Hyperlipidemia. 3. Hypertension. 4. Prostate cancer, status post radiation. 5. Coronary artery disease, status post stent placement. 6. Peripheral vascular disease, status post stents in the legs. 7. Arthritis, with bilateral knee replacements. ALLERGIES: No known allergies to drugs. MEDICATIONS PRIOR TO ADMISSION: Glipizide 10 mg twice per day before meals, hydralazine 25 mg 3 times per day, irbesartan 300 mg, multivitamins with minerals, and nifedipine 90 mg sustained release daily. FAMILY HISTORY: Noncontributory. SOCIAL HISTORY: He is . He is a former smoker. He does not drink alcohol or use recreational drugs. REVIEW OF SYSTEMS: He does not complain of any headache. He has had bilateral cataract extraction and lens implants with the most recent on the left side about a year ago. He has noticed diminished hearing in the right ear. He has not noted any loss of cognition. He has been able to swallow without choking. He does not complain of nose or sinus trouble. He easily becomes short of breath with exertion. He does not complain of chest or abdominal pain. Sometimes his abdomen feels bloated. He has not had any fever or rash. He has been having some diarrhea. He does not have any genitourinary complaints. He does not complain of numbness. He does complain of some generalized weakness. He does complain of shaking. He has impaired balance and uses a walker. He does not complain of swelling of the feet or ankles. He does not complain of excessive bruising or bleeding. He denies any psychiatric complaints. PHYSICAL EXAMINATION: VITAL SIGNS: The blood pressure was 112/63, pulse 103, respirations 18, temperature 98.3 degrees Fahrenheit. Oximetry was 97% on room air. GENERAL: He was alert, awake, and cooperative. Speech was fluent and clear. He had a good fund of recent and remote knowledge. Attention and concentration were intact. He appeared well groomed and well nourished. He was well oriented. NEUROLOGIC: Examination of the cranial nerves revealed visual chairez were full to confrontation. Extraocular movements were intact. The eyes were conjugate. Pursuit movements were smooth and saccadic eye movements were without dysmetria. Pupils were 3 mm and reactive. Funduscopic exam did not reveal papilledema, exudate, or hemorrhage. Facial sensation was intact. The muscles of mastication and facial expression were powerful symmetrically. Hearing was not intact to finger rub on the right, but he could here click. He could here both sounds on the left. The palate arched symmetrically and the tongue was midline. Sternocleidomastoid and trapezius were powerful. Muscle bulk and tone were normal. There was no arm or leg drift. He did not have asterixis. He did not have rigidity even with augmentation maneuvers. Power was full and symmetric in the upper and lower extremities. Reflexes were trace at the elbows, knees and ankles. Left ankle was absent. The toes were not upgoing. Coordination testing with wajncn-ob-urnf, vzhj-wn-qmzj, fine motor, and rapid alternating movements was fair. He did not have bradykinesia. He has the imposed tremor with fine motor movements in the hands. He did not have a resting tremor. With the outstretched hands, he had an irregular, low-amplitude, high-frequency tremor. Sensory exam was intact to pain, light touch, proprioception, graphesthesia, cold thermal and vibration. There was no extinction to double simultaneous stimulation. Sitting balance was good. He did not feel he had the strength to stand, so walking was not testable. Auscultation of the carotid arteries did not reveal a bruit. Heart rhythm was regular, but tachycardic. Peripheral pulses were strong at the wrists, diminished in the feet. There was no edema or cyanosis. REVIEW OF LABORATORY DATA: CBC revealed a normal white blood cell count and platelet count. Hemoglobin was low at 10.8, hematocrit at 32.1. Chemistries revealed capillary blood glucose most recently elevated at 317. Electrolytes were normal. BUN was 30; creatinine 2.3, which was down from 2.6. Calculated GFR was 27. Calcium and phosphorus were normal, but magnesium was low at 1.7. Albumin was low at 3.3. ____ was 94. Iron was low at 30, total iron binding capacity normal, and iron saturation was only 11%, with a ferritin of 216. CPK was not elevated. Liver enzymes were not elevated. Troponin was not elevated. BNP was elevated at 1222. Total protein and albumin were normal. Urinalysis revealed greater than 300 mg/dL of protein, 100 glucose, 1 to 2 red cells, occasional white cells, and a few squamous epithelial cells. Influenza screening was negative. Hepatitis screening is pending. An ultrasound of the kidneys revealed small but otherwise unremarkable kidneys. Chest x-ray revealed no acute process in the chest. IMPRESSION: The patient is very pleasant, 86-year-old man, who has developed some generalized weakness and shaking. He does not have Parkinson's disease. This is more in the category of essential tremor which may have been augmented by his underlying metabolic disturbances. He has had some acute renal failure. He has some electrolyte disturbances. I do not see any focal weakness or numbness that would suggest stroke or spinal cord involvement. He is having some cardiac issues and has dyspnea with minimal exertion. Even with the neurologic exam in the sitting position, he became very short winded and did not want to lie down so that he could catch his breath. This type of tremor will also be made worse by albuterol or any other beta-agonist type medication. RECOMMENDATIONS: I would treat the underlying metabolic disturbances initially to see if the tremor becomes back to an acceptable level. If the tremor continues to be a major issue that is impairing his functioning, then we could always consider a very slow titration of Mysoline. Beta-blockers can be helpful, but I suspect in his situation beta-blockers may be contraindicated. I appreciate being involved in his care. ISABELA CAAL MD DR: CLEMENTE/anitha JOB#: [id number] / [id number] LAMBERT Cole MD, JAY MD
[2016-11-23] MEDS: IRON SUCROSE COMPLEX 200 MG in IV NORMAL SALINE 100ML 100 ML IV SCH (08:39)
[2016-11-23] MEDS: INSULIN ASPART 300 UNITS/3 ML INSULN.PEN SQ SCH ×3 (08:47→17:14)
[2016-11-23 11:00] VITALS: BP 144/83
--- NOTE | 2016-11-23 11:29 | CARD ---
APPROVED REPORT EXAM: Two-dimensional and M-mode echocardiogram with Doppler and color Doppler. Other Information Quality : Average Rhythm : NSR INDICATION LV Function:SystolicDiastolic 2D DIMENSIONS RVDd3.5 (2.9-3.5cm)Left Atrium(2D)3.6 (1.6-4.0cm) IVSd1.1 (0.7-1.1cm)Aortic Root(2D)3.3 (2.0-3.7cm) LVDd4.1 (3.9-5.9cm)LVOT Diameter2.0 (1.8-2.4cm) PWd1.1 (0.7-1.1cm)LVDs3.0 (2.5-4.0cm) FS (%) 26.0 %SV38.1 ml LVEF(%)51.5 (>50%) Aortic Valve AoV Peak Jorgito.130.0cm/sAoV VTI28.3cm AO Peak GR.6.8mmHgLVOT Peak Jorgito.126.1cm/s LVOT VTI 28.65cmAO Mean GR.3mmHg BERNIE (VMAX)2.58qy6YLS (VTI)3.03cm2 Mitral Valve MV E Ghyqswwg825.5cm/sMV DECEL XTND994gk MV A Yusvflus629.3cm/sMV E Mean Gr.5mmHg MV CGZ37uiK/A Ratio0.9 MV A Yrjovnab762cjMWR (PHT)2.49cm2 TDI E/Lateral E'13.6E/Medial E'15.6 Pulmonary Valve PV Peak Zeksrcqz330.1cm/sPV Peak Grad.4mmHg RVOT VTI18.7cm Tricuspid Valve TR P. Jfdcexuu746bv/sRAP RJRICITZ3brKm TR Peak Gr.16efBxXOSR41dsVg LEFT VENTRICLE The left ventricle is normal size. There is normal left ventricular wall thickness. Left ventricle sy stolic function is normal. The Ejection Fraction is 55-60%. There is normal LV segmental wall motion. Tissue Doppler imaging reveals mild left ventricular diastolic dysfunction. Transmitral Doppler flow pattern is Grade I-abnormal relaxation pattern. RIGHT VENTRICLE The right ventricle is normal size. The right ventricular systolic function is normal. ATRIA The left atrium size is normal. The right atrium size is normal. The interatrial septum is intact wit h no evidence for an atrial septal defect or patent foramen ovale as noted on 2-D or Doppler imaging. AORTIC VALVE The aortic valve is mildly sclerotic. The aortic valve is trileaflet. Doppler and Color Flow revealed no significant aortic regurgitation. There is no significant aortic valvular stenosis. MITRAL VALVE Mitral annular calcification is mild. There is no mitral valve stenosis. Doppler and Color Flow revea led mild mitral regurgitation. TRICUSPID VALVE The tricuspid valve is normal in structure and function. Doppler and Color Flow revealed mild tricusp id regurgitation. The PA pressure was estimated at 45 mmHg. There is no tricuspid valve stenosis. PULMONIC VALVE The pulmonic valve is not well visualized. Doppler and Color Flow revealed no pulmonic valvular regur gitation. There is no pulmonic valvular stenosis. GREAT VESSELS The aortic root is normal in size. Normal pulmonary venous flow (Doppler). The IVC is dilated and col lapses >50% with inspiration. PERICARDIAL EFFUSION There is no evidence of significant pericardial effusion. Critical Notification Critical Value: No <Conclusion> The left ventricle is normal size. Left ventricle systolic function is normal. The Ejection Fraction is 55-60%. There is normal left ventricular wall thickness. Tissue Doppler imaging reveals mild left ventricular diastolic dysfunction. Transmitral Doppler flow pattern is Grade I-abnormal relaxation pattern. There is no significant aortic valvular stenosis. Doppler and Color Flow revealed no significant aortic regurgitation. Doppler and Color Flow revealed mild mitral regurgitation. Doppler and Color Flow revealed mild tricuspid regurgitation. The PA pressure was estimated at 45 mmHg.
--- NOTE | 2016-11-23 11:50 | PDOC ---
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 mosit Neck: no JVD no JVP Supple no Thyromegaly CVS: S1 S2 ? soft Murmur No Gallop No Rub no Edema Resp: no Rales no Rhonchi no Acc. Muscle use GI: BS +ve NO Bruit Non Tender Non Distended : no CVA tenderness; no Suprapubic Tenderness Assessment & Plan ARF: Unclear etio, D/d is wide at this time. See O for W/up as ordered. Creat is stable despite IVF. This may be his baseline. US WNL Current FLuid and E- lyte status does not necessitate emergent need for Dialysis. Will re-evaluate for Dialysis in am ? CKD III/ Iv - this may be his new baseline Vol depletion (unclear etio) - D/c IVF since it has not changed much Wt Loss - defer to Primary team to work up, checking PSA and PEPs Proteinuria - ? renal vs related to Bladder XRT in the past; check PEPs too; Quantitate as ordered Anemia: IV Iron as ordered; Epogen if hgb < 10. Transfuse as needed. HTN: Current BP meds reviewed. See orders for changes. Discussed Plan of Care and prognosis etc. at length with family (Son) COMMENT/RELEVANT DATA Meds Current Medications Medications (Trade) Dose Ordered Sig/Kenisha Start Time Stop Time Status Last Admin Dose Admin Acetaminophen (Tylenol) 650 mg PRN Q4HRS PRN 11/21/16 07:30 11/22/16 07:29 DC Albuterol Sulfate (Ventolin Neb Soln) 2.5 mg PRN Q4HRS PRN 11/22/16 14:30 Albuterol/ Ipratropium (Duoneb) 3 ml RTQID 11/22/16 16:00 11/23/16 07:06 3 ML Albuterol/ Ipratropium 3 ml 3 ml 1X ONCE 11/21/16 02:45 11/21/16 02:46 DC 11/21/16 02:36 3 ML Dextrose 12.5 gm 12.5 gm PRN Q15MIN PRN 11/21/16 08:00 Glipizide (Glucotrol) 10 mg BIDBFRMEAL 11/21/16 08:00 11/23/16 08:32 10 MG Guaifenesin (Robitussin Dm) 10 ml QID 11/22/16 14:30 11/22/16 17:16 10 ML Hydralazine HCl (Apresoline) 50 mg TID 11/22/16 14:00 11/23/16 08:32 50 MG Insulin Aspart (Novolog) 0-9 UNITS TIDWMEALS 11/21/16 08:00 11/23/16 08:47 5 UNITS Iron Sucrose 200 mg/Sodium Chloride 110 ml @ 55 mls/hr 3X/WEEK 11/22/16 14:00 11/30/16 10:59 11/23/16 08:39 55 MLS/HR Labetalol HCl 10 mg 10 mg PRN Q2HR PRN 11/22/16 09:45 Magnesium Sulfate/ Dextrose (Magnesium Sulfate PREMIX 1GM) 100 ml @ 100 mls/hr 1X ONCE 11/22/16 13:30 11/22/16 14:29 DC 11/22/16 13:21 100 MLS/HR Magnesium Sulfate/ Dextrose (Magnesium Sulfate PREMIX 2GM) 50 ml @ 25 mls/hr PRN DAILY PRN 11/21/16 15:15 Multivitamins/ Calcium (Thera M Plus) 1 tab DAILY 11/21/16 09:00 11/23/16 08:32 1 TAB Nifedipine (Procardia Xl) 90 mg DAILY 11/21/16 09:00 11/23/16 08:33 90 MG Prednisone (Prednisone) 40 mg DAILY 11/22/16 15:00 11/23/16 08:32 40 MG Sodium Chloride (Iv Sodium Chloride 0.9% 1000ml Bag) 1,000 ml @ 100 mls/hr Q10H 11/21/16 07:23 11/22/16 07:22 DC 11/22/16 10:45 100 MLS/HR Lab Laboratory Tests Test 11/22/16 15:54 11/22/16 17:03 11/22/16 20:16 11/23/16 04:15 Glucose (Fingerstick) 164mg/dL (70-99) 153mg/dL (70-99) 317mg/dL (70-99) Sodium Level 139mmol/L (136-145) Potassium Level 4.2mmol/L (3.5-5.1) Chloride Level 105mmol/L (98-107) Carbon Dioxide Level 19mmol/L (21-32) Anion Gap 15 (6-14) Blood Urea Nitrogen 37mg/dL (8-26) Creatinine 2.6mg/dL (0.7-1.3) Estimated GFR (Cockcroft-Gault) 23.4 Glucose Level 270mg/dL (70-99) Calcium Level 8.4mg/dL (8.5-10.1) Phosphorus Level 4.3mg/dL (2.6-4.7) Magnesium Level 2.0mg/dL (1.8-2.4) Albumin 2.9g/dL (3.4-5.0) Test 11/23/16 07:17 11/23/16 10:06 Glucose (Fingerstick) 220mg/dL (70-99) 126mg/dL (70-99) Other The left ventricle is normal size. Left ventricle systolic function is normal. The Ejection Fraction is 55-60%. There is normal left ventricular wall thickness. Tissue Doppler imaging reveals mild left ventricular diastolic dysfunction. Transmitral Doppler flow pattern is Grade I-abnormal relaxation pattern. There is no significant aortic valvular stenosis. Doppler and Color Flow revealed no significant aortic regurgitation. Doppler and Color Flow revealed mild mitral regurgitation. Doppler and Color Flow revealed mild tricuspid regurgitation. The PA pressure was estimated at 45 mmHg. The right kidney measures 9.5 x 4.4 x 4.6 cm. No hydronephrosis or solid mass is seen associated with the right kidney. The left kidney measures 9.6 x 4.7 x 5.3 cm. No hydronephrosis or mass is seen. Urinary bladder was not completely distended but appeared grossly normal. Post void urinary bladder volume is estimated at approximately 25 cc. IMPRESSION: Somewhat small but otherwise unremarkable kidneys. No hydronephrosis or mass is seen associated with either TIM TURNER MD Nov 23, 2016 11:50
--- NOTE | 2016-11-23 12:43 | PDOC ---
PROGRESS NOTES Chief Complaint Chief Complaint 1. JENNIFER unknown if CKD 2. DM 2 on OHA since 1981 3. HTN, controlled 4. Proteinuria 5. Wheezy, possibly undiagnosed COPD? 6. Prev smoker 7. Gap metabolic acidosis History of Present Illness History of Present Illness Neuro saw victorino zendejas per family request - all metabolic, non neurologic (i.e parkinsons) Crea remains 2 plus today Pt has no other complaints PLAn: Cont pred and nebs for the wheezing Will need OP PFTs Check echo, elevated BNP, weak soa IVF per renal Pt/OT BMp again alexy Vitals Vitals Vital Signs Date Time Temp Pulse Resp B/P Pulse Ox O2 Delivery O2 Flow Rate FiO2 11/23/16 11:56 Room Air 11/23/16 11:00 97.9 93 18 144/83 98 97.9 Physical Exam General: Alert, Oriented X3, Cooperative, No acute distress Extremities: No clubbing, No cyanosis, No edema, Normal pulses, No tenderness/ swelling Skin: No rashes, No breakdown, No significant lesion Labs LABS Laboratory Tests Test 11/22/16 15:54 11/22/16 17:03 11/22/16 20:16 11/23/16 04:15 Glucose (Fingerstick) 164mg/dL (70-99) 153mg/dL (70-99) 317mg/dL (70-99) Sodium Level 139mmol/L (136-145) Potassium Level 4.2mmol/L (3.5-5.1) Chloride Level 105mmol/L (98-107) Carbon Dioxide Level 19mmol/L (21-32) Anion Gap 15 (6-14) Blood Urea Nitrogen 37mg/dL (8-26) Creatinine 2.6mg/dL (0.7-1.3) Estimated GFR (Cockcroft-Gault) 23.4 Glucose Level 270mg/dL (70-99) Calcium Level 8.4mg/dL (8.5-10.1) Phosphorus Level 4.3mg/dL (2.6-4.7) Magnesium Level 2.0mg/dL (1.8-2.4) Albumin 2.9g/dL (3.4-5.0) Test 11/23/16 07:17 11/23/16 10:06 Glucose (Fingerstick) 220mg/dL (70-99) 126mg/dL (70-99) Review of Systems Review of Systems weak, cough, soat at times Assessment and Plan Assessmemt and Plan Problems Medical Problems: (1) Acute renal failure Status: Acute Problems: Comment Review of Relevant I have reviewed the following items astrid (where applicable) has been applied. Labs Laboratory Tests Test 11/21/16 15:50 11/21/16 16:29 11/21/16 20:34 11/22/16 04:40 Reticulocyte Count (auto) 0.8% (0.5-2.5) Estimated GFR (Non- 25 (>59) Uric Acid 5.5mg/dL (3.5-7.2) Iron Level 30ug/dL (65-175) Total Iron Binding Capacity 267ug/dL (250-450) Iron Saturation 11% (15-34) Ferritin 216ng/mL (26-388) Creatine Kinase 152U/L (39-308) EGFR 29 (>59) Vitamin B12 Level 328pg/mL (211-946) PTH (Intact) Specimen Description Comment (.) Parathyroid Hormone (Intact) 94pg/mL (15-65) Calcium (PTH Intact) 8.5mg/dL (8.6-10.2) Creatinine (PTH Intact) 2.26mg/dL (0.76-1.27) Phosphorus (PTH Intact) 4.1mg/dL (2.5-4.5) Glucose (Fingerstick) 112mg/dL (70-99) 129mg/dL (70-99) White Blood Count 8.2x10^3/uL (4.0-11.0) Red Blood Count 3.86x10^6/uL (4.30-5.70) Hemoglobin 10.8g/dL (13.0-17.5) Hematocrit 32.1% (39.0-53.0) Mean Corpuscular Volume 83fL (79-100) Mean Corpuscular Hemoglobin 28pg (25-35) Mean Corpuscular Hemoglobin Concent 34g/dL (31-37) Red Cell Distribution Width 12.8% (11.5-14.5) Platelet Count 244x10^3/uL (140-400) Neutrophils (%) (Auto) 71% (31-73) Lymphocytes (%) (Auto) 14% (24-48) Monocytes (%) (Auto) 12% (0-9) Eosinophils (%) (Auto) 3% (0-3) Basophils (%) (Auto) 1% (0-3) Neutrophils # (Auto) 5.8x10^3uL (1.8-7.7) Lymphocytes # (Auto) 1.1x10^3/uL (1.0-4.8) Monocytes # (Auto) 1.0x10^3/uL (0.0-1.1) Eosinophils # (Auto) 0.2x10^3/uL (0.0-0.7) Basophils # (Auto) 0.0x10^3/uL (0.0-0.2) Sodium Level 140mmol/L (136-145) Potassium Level 3.6mmol/L (3.5-5.1) Chloride Level 105mmol/L (98-107) Carbon Dioxide Level 22mmol/L (21-32) Anion Gap 13 (6-14) Blood Urea Nitrogen 30mg/dL (8-26) Creatinine 2.3mg/dL (0.7-1.3) Estimated GFR (Cockcroft-Gault) 27.0 Glucose Level 121mg/dL (70-99) Calcium Level 8.7mg/dL (8.5-10.1) Phosphorus Level 3.6mg/dL (2.6-4.7) Magnesium Level 1.7mg/dL (1.8-2.4) Albumin 3.3g/dL (3.4-5.0) Test 11/22/16 07:01 11/22/16 11:09 11/22/16 15:54 11/22/16 17:03 Glucose (Fingerstick) 136mg/dL (70-99) 202mg/dL (70-99) 164mg/dL (70-99) 153mg/dL (70-99) Test 11/22/16 20:16 11/23/16 04:15 11/23/16 07:17 11/23/16 10:06 Glucose (Fingerstick) 317mg/dL (70-99) 220mg/dL (70-99) 126mg/dL (70-99) Sodium Level 139mmol/L (136-145) Potassium Level 4.2mmol/L (3.5-5.1) Chloride Level 105mmol/L (98-107) Carbon Dioxide Level 19mmol/L (21-32) Anion Gap 15 (6-14) Blood Urea Nitrogen 37mg/dL (8-26) Creatinine 2.6mg/dL (0.7-1.3) Estimated GFR (Cockcroft-Gault) 23.4 Glucose Level 270mg/dL (70-99) Calcium Level 8.4mg/dL (8.5-10.1) Phosphorus Level 4.3mg/dL (2.6-4.7) Magnesium Level 2.0mg/dL (1.8-2.4) Albumin 2.9g/dL (3.4-5.0) Laboratory Tests Test 11/22/16 15:54 11/22/16 17:03 11/22/16 20:16 11/23/16 04:15 Glucose (Fingerstick) 164mg/dL (70-99) 153mg/dL (70-99) 317mg/dL (70-99) Sodium Level 139mmol/L (136-145) Potassium Level 4.2mmol/L (3.5-5.1) Chloride Level 105mmol/L (98-107) Carbon Dioxide Level 19mmol/L (21-32) Anion Gap 15 (6-14) Blood Urea Nitrogen 37mg/dL (8-26) Creatinine 2.6mg/dL (0.7-1.3) Estimated GFR (Cockcroft-Gault) 23.4 Glucose Level 270mg/dL (70-99) Calcium Level 8.4mg/dL (8.5-10.1) Phosphorus Level 4.3mg/dL (2.6-4.7) Magnesium Level 2.0mg/dL (1.8-2.4) Albumin 2.9g/dL (3.4-5.0) Test 11/23/16 07:17 11/23/16 10:06 Glucose (Fingerstick) 220mg/dL (70-99) 126mg/dL (70-99) Medications Current Medications Albuterol/ Ipratropium 3 ml 3 ml 1X ONCE NEB Last administered on 11/21/16t 02 :36; Start 11/21/16 at 02:45; Stop 11/21/16 at 02:46; Status DC Sodium Chloride 1,000 ml @ 100 mls/hr 1X ONCE IV Last administered on 04:59; Start 11/21/16 at 05:00; Stop 11/21/16 at 14:59; Status DC Sodium Chloride (Iv Sodium Chloride 0.9% 1000ml Bag) 1,000 ml @ 100 mls/hr Q10H IV Last administered on 11/22/16 10:45; Start 11/21/16 at 07:23; Stop at 07:22; Status DC Acetaminophen (Tylenol) 650 mg PRN Q4HRS PRN PO FEVER; Start 11/21/16 at 07:30 ; Stop 11/22/16 at 07:29; Status DC Albuterol/ Ipratropium (Duoneb) 3 ml RTQID NEB Last administered on 11/22/16 21:37; Start 11/21/16 at 08:00; Stop 11/22/16 at 07:59; Status DC Hydralazine HCl (Apresoline) 25 mg TID PO Last administered on 11/22/16 08:11 ; Start 11/21/16 at 09:00; Stop 11/22/16 at 09:37; Status DC Glipizide (Glucotrol) 10 mg BIDBFRMEAL PO Last administered on 11/23/16 08:32 ; Start 11/21/16 at 08:00 Multivitamins/ Calcium (Thera M Plus) 1 tab DAILY PO Last administered on 08:32; Start 11/21/16 at 09:00 Nifedipine (Procardia Xl) 90 mg DAILY PO Last administered on 11/23/16 08:33; Start 11/21/16 at 09:00 Insulin Aspart (Novolog) 0-9 UNITS TIDWMEALS SQ Last administered on 11/23/16 08:47; Start 11/21/16 at 08:00 Dextrose 12.5 gm 12.5 gm PRN Q15MIN PRN IV SEE COMMENTS; Start 11/21/16 at 08: 00 Magnesium Sulfate/ Dextrose (Magnesium Sulfate PREMIX 2GM) 50 ml @ 25 mls/hr PRN DAILY PRN IV for Mag < 1.7 on am labs; Start 11/21/16 at 15:15 Hydralazine HCl (Apresoline) 50 mg TID PO Last administered on 11/23/16 08:32 ; Start 11/22/16 at 14:00 Labetalol HCl 10 mg 10 mg PRN Q2HR PRN IVP HYPERTENSION, SEE COMMENTS; Start at 09:45 Iron Sucrose 200 mg/Sodium Chloride 110 ml @ 55 mls/hr 3X/WEEK IV Last administered on 11/23/16 08:39; Start 11/22/16 at 14:00; Stop 11/30/16 at 10:59 Magnesium Sulfate/ Dextrose (Magnesium Sulfate PREMIX 1GM) 100 ml @ 100 mls/hr 1X ONCE IV Last administered on 11/22/16 13:21; Start 11/22/16 at 13:30; Stop 11/22/16 at 14:29; Status DC Prednisone (Prednisone) 40 mg DAILY PO Last administered on 11/23/16 08:32; Start 11/22/16 at 15:00 Guaifenesin (Robitussin Dm) 10 ml QID PO Last administered on 11/22/16 17:16; Start 11/22/16 at 14:30 Albuterol/ Ipratropium (Duoneb) 3 ml RTQID NEB Last administered on 11/23/16 11:54; Start 11/22/16 at 16:00 Albuterol Sulfate (Ventolin Neb Soln) 2.5 mg PRN Q4HRS PRN NEB SHORTNESS OF BREATH; Start 11/22/16 at 14:30 Sodium Bicarbonate (Sodium Bicarbonate) 650 mg TID PO ; Start 11/23/16 at 14:00 Active Scripts Active Reported Centrum Men's Tablet (Multivits,Ca,Min/Iron/FA/Lycop) 1 Each Tablet 1 Each PO DAILY Nifedipine Er (Nifedipine) 90 Mg Tab.er.24 90 Mg PO DAILY Hydralazine Hcl 25 Mg Tablet 25 Mg PO TID Irbesartan 300 Mg Tablet 300 Mg PO DAILY Glipizide 10 Mg Tablet 10 Mg PO BIDAC Vitals/I & O Vital Sign - Last 24 Hours 11/22/16 11/22/16 11/22/16 11/22/16 14:43 14:49 15:18 19:00 Temp 97.9 98.2 97.9 98.2 Pulse 94 94 103 Resp 18 18 B/P 160/87 160/87 112/63 Pulse Ox 97 96 97 O2 Delivery Room Air Room Air Room Air 11/22/16 11/22/16 11/22/16 11/22/16 20:00 21:33 21:37 22:43 Temp 97.9 97.9 Pulse 103 99 Resp 18 B/P 112/63 131/79 Pulse Ox 99 98 O2 Delivery Room Air Room Air Room Air 11/23/16 11/23/16 11/23/16 11/23/16 03:21 07:00 07:07 08:00 Temp 97.5 97.8 97.5 97.8 Pulse 98 80 Resp 19 18 B/P 116/72 141/78 Pulse Ox 96 99 100 O2 Delivery Room Air Room Air Room Air Room Air 11/23/16 11/23/16 11/23/16 11/23/16 08:32 08:33 11:00 11:56 Temp 97.9 97.9 Pulse 80 80 93 Resp 18 B/P 141/78 141/78 144/83 Pulse Ox 98 O2 Delivery Room Air Room Air Intake and Output 11/22/16 11/22/16 11/23/16 15:00 23:00 07:00 Intake Total 240 ml 740 ml 1200 ml Balance 240 ml 740 ml 1200 ml KALE RAMIREZ MD Nov 23, 2016 12:43
[2016-11-23] MEDS: SODIUM BICARBONATE 650 MG TABLET. PO SCH ×2 (14:46→22:06)
--- NOTE | 2016-11-23 14:54 | PDOC ---
PROGRESS NOTES Assessment Assessment IMPRESSION: Essential tremor. SOB Cough Acute renal failure. Elevated PTH HTN DM Diabetic peripheral neuropathy Obesity RECOMMENDATIONS/PLAN: Continue Beta-Aspen. Add Vimpat 50 mg bid. Treat medical diseases. Further evaluation for parathyroid disease per floor team. SUBJECTIVE: Tremors in hands. PAST MEDICAL AND SURGICAL HISTORY: Please see H&P ALLERGY:A Unknown MEDICATIONS: Refer to MAR REVIEW OF SYSTEMS: Constitutional: No malnutrition, weight loss, cachexia. Head: No traumatic brain or head injury. Skin: No edema, or rash. Ear: No infection, tinnitus. Eyes: No vision loss, or diplopia. Nose: No bleeding or purulent discharges. Hearing: Hearing loss. Neck: No injury. Cardiac: HTN Pulmonary: SOB, cough. GI: No GI Ulcer, GI bleeding Urinary/genital: BPH. Endocrine: Diabetes Mellitus, obesity. Skeletomuscular: No muscular atrophy, deformity. Neurological: see HP. Psychiatric: Denies drug use/abuse. Otherwise, not [id number] review of systems. PHYSICAL EXAMINATION: General appearance in subacute distress. HEENT: Normocephalic and nontraumatic. Eyes, nose, ears, and throat are unremarkable. Hearing decrease. Neck is supple. No lymphadenopathy. No Crepitus. Cardiovascular: S1, S2, regular rate and rhythm. Pulmonary: Clear to auscultation bilaterally. Abdomen: Bowel sounds are positive. Abdomen is soft, nontender, and nondistended. Extremities: No rash, lesions, or edema. No restriction of range of motion NEUROLOGICAL EXAMINATION: Awake. Oriented to place and person. PERRL. EOMI. CN: no focal findings. Muscle tone: No increase appreciated.. Muscle strength: 5- DTR: 2- UE, 0-1 LE Plantar reflex: Flexor response bilaterally Gait: not examined in bed. . Sensory exam: no abnormal findings. No obvious cerebellar signs elicited. Tremors noted in hands.. Objective Objective Vital Signs Date Time Temp Pulse Resp B/P Pulse Ox O2 Delivery O2 Flow Rate FiO2 11/23/16 11:56 Room Air 11/23/16 11:00 97.9 93 18 144/83 98 97.9 Intake and Output 11/23/16 07:00 Intake Total 2180 ml Balance 2180 ml Intake Oral 1280 ml IV Total 900 ml # Voids 4 # Bowel Movements 2 Vitals Signs Vitals VS - Last 72 Hours, by Label Date Time Temp Pulse Resp B/P Pulse Ox O2 Delivery O2 Flow Rate FiO2 11/23/16 11:56 Room Air 11/23/16 11:00 97.9 93 18 144/83 98 Room Air 97.9 11/23/16 08:33 80 141/78 11/23/16 08:32 80 141/78 11/23/16 08:00 Room Air 11/23/16 07:07 100 Room Air 11/23/16 07:00 97.8 80 18 141/78 99 Room Air 97.8 11/23/16 03:21 97.5 98 19 116/72 96 Room Air 97.5 11/22/16 22:43 97.9 99 18 131/79 98 Room Air 97.9 11/22/16 21:37 99 Room Air 11/22/16 21:33 103 112/63 11/22/16 20:00 Room Air 11/22/16 19:00 98.2 103 18 112/63 97 Room Air 98.2 11/22/16 15:18 94 160/87 11/22/16 14:49 96 Room Air 11/22/16 14:43 97.9 94 18 160/87 97 Room Air 97.9 11/22/16 11:00 93 18 165/90 97 Room Air 11/22/16 08:12 93 174/95 11/22/16 08:11 93 174/95 11/22/16 07:50 Room Air 11/22/16 07:00 97.9 93 18 174/95 97 Room Air 97.9 Laboratory Laboratory Laboratory Tests Test 11/22/16 15:54 11/22/16 17:03 11/22/16 20:16 11/23/16 04:15 Glucose (Fingerstick) 164mg/dL (70-99) 153mg/dL (70-99) 317mg/dL (70-99) Sodium Level 139mmol/L (136-145) Potassium Level 4.2mmol/L (3.5-5.1) Chloride Level 105mmol/L (98-107) Carbon Dioxide Level 19mmol/L (21-32) Anion Gap 15 (6-14) Blood Urea Nitrogen 37mg/dL (8-26) Creatinine 2.6mg/dL (0.7-1.3) Estimated GFR (Cockcroft-Gault) 23.4 Glucose Level 270mg/dL (70-99) Calcium Level 8.4mg/dL (8.5-10.1) Phosphorus Level 4.3mg/dL (2.6-4.7) Magnesium Level 2.0mg/dL (1.8-2.4) Albumin 2.9g/dL (3.4-5.0) Test 11/23/16 07:17 11/23/16 10:06 Glucose (Fingerstick) 220mg/dL (70-99) 126mg/dL (70-99) Medication Medications Current Medications Albuterol/ Ipratropium (Duoneb) 3 ml RTQID NEB Last administered on 11/23/16 11:54; Start 11/22/16 at 16:00 Prednisone (Prednisone) 40 mg DAILY PO Last administered on 11/23/16 08:32; Start 11/22/16 at 15:00 Sodium Bicarbonate (Sodium Bicarbonate) 650 mg TID PO ; Start 11/23/16 at 14:00 Comment Review of Relevant I have reviewed the following items astrid (where applicable) has been applied. CARTER CROCKER MD Nov 23, 2016 14:54
[2016-11-23 14:59] VITALS: BP 136/77
[2016-11-23 15:21] LABS: KAPPA LAMBDA RATIO 1.27 (0.26-1.65)
--- NOTE | 2016-11-23 15:53 | EKG ---
[facility] [address] [place] [address] Test Date: 2016-11-23 Test Time: 15:51:11 Pat Name: ROSALIA HAMM Department: Room: 554 1 Gender: M Volleyball Commentator: NATE : 1930 Requested By: KALE RAMIREZ Order Number: [id number] Reading MD: Gurvinder Calabrese Measurements Intervals [place] Rate: 92 P: 79 RI: 116 QRS: -27 QRSD: 88 T: 72 QT: 372 QTc: 465 Interpretive Statements SINUS RHYTHM LEFTWARD AXIS T ABNORMALITY IN HIGH LATERAL LEADS ABNORMAL ECG RI6.01 No previous ECG available for comparison Electronically Signed On 11-23-2016 16:37:28 PLASTIC SURGERY MANAGER by Gurvinder Calabrese
[2016-11-23] MEDS ORDERED: MORPHINE SULFATE 2 MG/ML DISP.SYRIN. IV PRN (16:00)
[2016-11-23 17:15] LABS: HEP A IGM ABDY Negative (Negative); HEP B SURFACE ABDY Reactive (.)
[2016-11-23 19:00] VITALS: BP 130/72
--- NOTE | 2016-11-23 21:51 | EKG ---
[facility] [address] [place] [address] Test Date: 2016-11-23 Test Time: 21:45:17 Pat Name: ROSALIA HAMM Department: Room: 554 1 Gender: M Anvilsmith: DAVE : 1930 Requested By: KALE RAMIREZ Order Number: [id number] Reading MD: Josie Bailey Measurements Intervals [place] Rate: 90 P: 70 CO: 148 QRS: -6 QRSD: 84 T: 80 QT: 372 QTc: 459 Interpretive Statements SINUS RHYTHM LEFTWARD AXIS PREMATURE ATRIAL CONTRACTIONS POSSIBLY ABNORMAL ECG Electronically Signed On 11-28-2016 19:38:55 SENIOR WATER RESOURCES ENGINEER by Josie Bailey
[2016-11-23] MEDS: LACOSAMIDE 50 MG TABLET PO SCH (22:06)
[2016-11-23 23:26] VITALS: BP 139/73
[2016-11-24 03:37] VITALS: BP 153/72
--- NOTE | 2016-11-24 04:58 | EKG ---
[facility] [address] [place] [address] Test Date: 2016-11-24 Test Time: 04:52:55 Pat Name: ROSALIA HAMM Department: Room: 554 1 Gender: M Counselor Education Professor: LASHA : 1930 Requested By: KALE RAMIREZ Order Number: [id number] Reading MD: Josie Bailey Measurements Intervals [place] Rate: 89 P: 45 CT: 146 QRS: -16 QRSD: 86 T: 61 QT: 362 QTc: 447 Interpretive Statements SINUS RHYTHM LEFTWARD AXIS NORMAL ECG Electronically Signed On 11-28-2016 19:41:45 FINANCIAL RECRUITER by Josie Bailey
[2016-11-24 06:17] LABS: TOTAL SERUM CREATININE 2.53 mg/dL (0.76-1.27); TOTAL URINE CREATININE 69.7 mg/dL (Not Estab.)
[2016-11-24 06:19] LABS: ALBUMIN 3.3 g/dL (3.4-5.0); CALCIUM 8.8 mg/dL (8.5-10.1); CREATININE 2.7 mg/dL (0.7-1.3); GFR 22.4; PHOSPHORUS 4.1 mg/dL (2.6-4.7)
[2016-11-24] MEDS: IPRATRPIUM/ALBUTEROL 0.5/2.5MG 3 ML NEBU. NEB SCH ×4 (06:49→18:17)
[2016-11-24 07:15] VITALS: BP 128/72
[2016-11-24] MEDS: GLIPIZIDE 5 MG TABLET PO SCH ×2 (07:30→17:16)
[2016-11-24] MEDS: INSULIN ASPART 300 UNITS/3 ML INSULN.PEN SQ SCH ×3 (08:00→17:21)
[2016-11-24] MEDS: NIFEDIPINE ER 30 MG TAB.ER.24H PO SCH (08:26)
[2016-11-24] MEDS: HYDRALAZINE 50 MG TABLET PO SCH ×3 (08:26→21:12)
[2016-11-24] MEDS: SODIUM BICARBONATE 650 MG TABLET. PO SCH ×3 (08:26→21:13)
[2016-11-24] MEDS: LACOSAMIDE 50 MG TABLET PO SCH ×2 (08:26→21:13)
[2016-11-24] MEDS: MULTIVITAMIN with MINERAL TABLET. PO SCH (08:26)
[2016-11-24] MEDS: PREDNISONE 20 MG TABLET PO SCH (08:26)
[2016-11-24] MEDS: GUAIFENESIN DM 200MG/20MG 10 ML SYRUP. PO SCH ×4 (08:27→21:00)
--- NOTE | 2016-11-24 08:52 | EKG ---
[facility] [address] [place] [address] Test Date: 2016-11-24 Test Time: 08:49:27 Pat Name: ROSALIA HAMM Department: Room: 554 1 Gender: M Deputy County Clerk: GERMAN : 1930 Requested By: KORY FISHER Order Number: [id number] Reading MD: Josie Bailey Measurements Intervals [place] Rate: 92 P: -51 AL: 104 QRS: -21 QRSD: 84 T: 45 QT: 362 QTc: 453 Interpretive Statements SINUS RHYTHM LEFTWARD AXIS NO SPECIFIC ECG ABNORMALITIES Electronically Signed On 11-28-2016 19:45:57 CLEANER OPERATOR by Josie Bailey
--- NOTE | 2016-11-24 10:13 | PDOC2 ---
LEEANNECHRISTIANA GREY DIRECTOR INFORMATION 11/24/16 1013: CARDIAC CONSULT DATE OF CONSULT Date of Consult DATE: 11/24/16 TIME: 10:11 REASON FOR CONSULT Reason for Consult: rapid response for chest pain REFERRING PHYSICIAN Referring Physician: Dr. Ani Connelly SOURCE Source: Chart review, Patient (who is a poor historian) HISTORY OF PRESENT ILLNESS HISTORY OF PRESENT ILLNESS 86 year old male admitted through the ER with c/o cough and found to have in acute renal failue with serum Cr of 2.6. Rapid response called yesterday ~ 1600 after he developed bilateral sharp chest pain about 30- 45 minutes after walking 200 ft with physical therapy. Prior to working with PT had eaten a hamburger with onions, then laid flat for about 60 minutes prior to working with PT. Pain lasted about 30 minutes and resolved without recurrence overnight. Associated with dyspnea and nausea but no other symptoms. Troponin peaked at 0.736 and associated with Cr of 2.6 - 2.7. No acute changes in EKG. Previous chest pain, though he can not report when this occurred, however, not as severe as yesterday. Echo had been done earlier in the day with preserved LV function and no significant valvular disease. Mild diastolic dysfunction present as is mild pulmonary HTN. Known history of PVD with previous stents; however unclear if cardiac stents as patient initially states stents went from "legs up to heart." Later reports stents stop in the groin. Usually follows with Dr. Bosch of [facility]. PAST MEDICAL HISTORY Cardiovascular: HTN, Hyperlipidemia, Other (PVD with stents to bilateral LE done about 20 years ago) Pulmonary: No pertinent hx CENTRAL NERVOUS SYSTEM: Other (tremors) GI: No pertinent hx Heme/Onc: No pertinent hx Hepatobiliary: No pertinent hx, Hep A/B/C (hep B and C) Psych: No pertinent hx Musculoskeletal: Osteoarthritis Infectious disease: No pertinent hx ENT: No pertinent hx Renal/: No pertinent hx, Prostate Ca. (with previous radiation therapy) Endocrine: Diabetes (type II with diabetic peripheral neuropathy) Dermatology: No pertinent hx PAST SURGICAL HISTORY Past Surgical History: Total knee replacement (bilateral) FAMILY HISTORY Family History negative for CAD SOCIAL HISTORY Smoke: Quit (1973) ALCOHOL: other (quit 1985) Drugs: None Lives: with Family CURRENT MEDICATIONS CURRENT MEDICATIONS Current Medications Medications (Trade) Dose Ordered Sig/Kenisha Route PRN Reason Start Time Stop Time Status Last Admin Dose Admin Sodium Bicarbonate (Sodium Bicarbonate) 650 mg TID PO 11/23/16 14:00 11/24/16 08:26 Lacosamide (Vimpat) 50 mg BID PO 11/23/16 21:00 11/24/16 08:26 ALLERGIES ALLERGIES: Coded Allergies: No Known Drug Allergies (Unverified , 11/21/16) PHYSICAL EXAM General: Alert, Oriented X3, Cooperative, No acute distress HEENT: Atraumatic, PERRLA Lungs: Normal air movement, Other (soft crackles in left posterior base) Heart: Regular rate, Normal S1, Normal S2, No murmurs, Other (no carotid bruits ; tele: ST) Abdomen: Normal bowel sounds, Soft Extremities: Normal pulses, Other (feet "puffy") Skin: No breakdown Neuro: Normal speech Psych/Mental Status: Mental status NL, Mood NL MUSCULOSKELETAL: Osteoarthritic changes both hands VITALS VITALS Vital Signs Date Time Temp Pulse Resp B/P Pulse Ox O2 Delivery O2 Flow Rate FiO2 11/24/16 08:26 81 128/72 11/24/16 07:45 Room Air 11/24/16 07:15 98.3 20 95 98.3 LABS Lab: Laboratory Tests Test 11/23/16 16:10 11/23/16 16:17 11/23/16 20:59 11/23/16 21:15 Troponin I Quantitative 0.079ng/mL (0.000-0.055) 0.307ng/mL (0.000-0.055) Glucose (Fingerstick) 317mg/dL (70-99) 260mg/dL (70-99) Test 11/24/16 04:00 11/24/16 04:30 11/24/16 08:04 Magnesium Level 2.3mg/dL (1.8-2.4) Troponin I Quantitative 0.736ng/mL (0.000-0.055) Sodium Level 141mmol/L (136-145) Potassium Level 4.0mmol/L (3.5-5.1) Chloride Level 107mmol/L (98-107) Carbon Dioxide Level 17mmol/L (21-32) Anion Gap 17 (6-14) Blood Urea Nitrogen 46mg/dL (8-26) Creatinine 2.7mg/dL (0.7-1.3) Estimated GFR (Cockcroft-Gault) 22.4 Glucose Level 125mg/dL (70-99) Calcium Level 8.8mg/dL (8.5-10.1) Phosphorus Level 4.1mg/dL (2.6-4.7) Albumin 3.3g/dL (3.4-5.0) Glucose (Fingerstick) 55mg/dL (70-99) IMAGES IMAGES 11/21/2016: CXR: PA and lateral views of the chest were obtained. Comparison is made to a study 07/07/2004. There are probable background changes of emphysema. The heart and pulmonary vessels appear normal. There is no focal consolidated pneumonia. No pleural fluid or pneumothorax is seen. There are degenerative changes about the shoulders. IMPRESSION: No acute or focal process seen in the chest EKG EKG no acute changes ECHOCARDIOGRAM ECHOCARDIOGRAM 11/23/2016: TTE: The left ventricle is normal size. Left ventricle systolic function is normal. The Ejection Fraction is 55-60%. There is normal left ventricular wall thickness. Tissue Doppler imaging reveals mild left ventricular diastolic dysfunction. Transmitral Doppler flow pattern is Grade I-abnormal relaxation pattern. There is no significant aortic valvular stenosis. Doppler and Color Flow revealed no significant aortic regurgitation. Doppler and Color Flow revealed mild mitral regurgitation. Doppler and Color Flow revealed mild tricuspid regurgitation. The PA pressure was estimated at 45 mmHg. ASSESSMENT/PLAN ASSESSMENT/PLAN 1. chest pain no acute changes in EKG and elevated troponin in the setting of JENNIFER/ARF ? GERD given food intake records requested from [facility] echo results above tentatively plan for MPI tomorrow if not done recently @ [facility] check TSH and FLP 2. JENNIFER per nephrology 3. elevated NT-proBNP in the setting of JENNIFER level 1222 and not diagnostic in > 80 year old no evidence of CHF on CXR 4. DM, II with DPN per primary 5. HTN previously treated with ARB which was stopped at time of admission currently treated with CCB and hydralazine 6. HLD check FLP with DM history, likely benefit from statin therapy 7. 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 seen and examined. Agree with above SHELL CORE AND MOLDING SUPERVISOR note. Late entry for 11/24/2016 86 yo male presenting with JENNIFER Mild trop elevation normal cardiac exam will await [facility] records. labs noted. will monitor for now, and agree with MPI as noted above if none performed recently. d/w with patient and family thanks for consult. Problems: CHRISTIANA EDDY APRN Nov 24, 2016 10:13 KIKE DO MD Nov 25, 2016 00:39
[2016-11-24 11:00] VITALS: BP 157/88
--- NOTE | 2016-11-24 12:26 | PDOC ---
PROGRESS NOTES Chief Complaint Chief Complaint 1. JENNIFER unknown if CKD 2. DM 2 on OHA since 1981 3. HTN, controlled 4. Proteinuria 5. Wheezy, possibly undiagnosed COPD? 6. Prev smoker 7. Gap metabolic acidosis 8. CHest pain, mild trop elevation in the setting of JENNIFER History of Present Illness History of Present Illness Tremors gone - metabolic in etiology per neuro HAd cp yesterday, 2 sets trop, mildly high PLanned for mPI by cards tomgetting records from [facility] Diaz stable at 2 plus did well with PT PALn: REnal panel daily Follow renal recs MPI alexy Planned for HH upon dc dw pt and family Vitals Vitals Vital Signs Date Time Temp Pulse Resp B/P Pulse Ox O2 Delivery O2 Flow Rate FiO2 11/24/16 11:00 97.6 96 24 157/88 96 Room Air 97.6 Physical Exam General: Alert, Oriented X3, Cooperative, No acute distress Heart: Regular rate, Normal S1, Normal S2, No murmurs, Other (no carotid bruits ; tele: ST) Abdomen: Normal bowel sounds, Soft Extremities: Normal pulses, Other (feet "puffy") Skin: No breakdown Labs LABS Laboratory Tests Test 11/23/16 16:10 11/23/16 16:17 11/23/16 20:59 11/23/16 21:15 Troponin I Quantitative 0.079ng/mL (0.000-0.055) 0.307ng/mL (0.000-0.055) Glucose (Fingerstick) 317mg/dL (70-99) 260mg/dL (70-99) Test 11/24/16 04:00 11/24/16 04:30 11/24/16 08:04 11/24/16 09:47 Magnesium Level 2.3mg/dL (1.8-2.4) Troponin I Quantitative 0.736ng/mL (0.000-0.055) Thyroid Stimulating Hormone (TSH) 0.275uIU/mL (0.358-3.74) Sodium Level 141mmol/L (136-145) Potassium Level 4.0mmol/L (3.5-5.1) Chloride Level 107mmol/L (98-107) Carbon Dioxide Level 17mmol/L (21-32) Anion Gap 17 (6-14) Blood Urea Nitrogen 46mg/dL (8-26) Creatinine 2.7mg/dL (0.7-1.3) Estimated GFR (Cockcroft-Gault) 22.4 Glucose Level 125mg/dL (70-99) Calcium Level 8.8mg/dL (8.5-10.1) Phosphorus Level 4.1mg/dL (2.6-4.7) Albumin 3.3g/dL (3.4-5.0) Glucose (Fingerstick) 55mg/dL (70-99) 89mg/dL (70-99) Test 11/24/16 11:19 Glucose (Fingerstick) 121mg/dL (70-99) Review of Systems Review of Systems no cp, soa, fevers,a bd pain etc Assessment and Plan Assessmemt and Plan Problems Medical Problems: (1) Acute renal failure Status: Acute Problems: Comment Review of Relevant I have reviewed the following items astrid (where applicable) has been applied. Labs Laboratory Tests Test 11/22/16 15:54 11/22/16 17:03 11/22/16 20:16 11/23/16 04:15 Glucose (Fingerstick) 164mg/dL (70-99) 153mg/dL (70-99) 317mg/dL (70-99) Sodium Level 139mmol/L (136-145) Potassium Level 4.2mmol/L (3.5-5.1) Chloride Level 105mmol/L (98-107) Carbon Dioxide Level 19mmol/L (21-32) Anion Gap 15 (6-14) Blood Urea Nitrogen 37mg/dL (8-26) Creatinine 2.6mg/dL (0.7-1.3) Estimated GFR (Cockcroft-Gault) 23.4 Glucose Level 270mg/dL (70-99) Calcium Level 8.4mg/dL (8.5-10.1) Phosphorus Level 4.3mg/dL (2.6-4.7) Magnesium Level 2.0mg/dL (1.8-2.4) Albumin 2.9g/dL (3.4-5.0) Test 11/23/16 07:17 11/23/16 10:06 11/23/16 16:10 11/23/16 16:17 Glucose (Fingerstick) 220mg/dL (70-99) 126mg/dL (70-99) 317mg/dL (70-99) Troponin I Quantitative 0.079ng/mL (0.000-0.055) Test 11/23/16 20:59 11/23/16 21:15 11/24/16 04:00 11/24/16 04:30 Glucose (Fingerstick) 260mg/dL (70-99) Troponin I Quantitative 0.307ng/mL (0.000-0.055) 0.736ng/mL (0.000-0.055) Magnesium Level 2.3mg/dL (1.8-2.4) Thyroid Stimulating Hormone (TSH) 0.275uIU/mL (0.358-3.74) Sodium Level 141mmol/L (136-145) Potassium Level 4.0mmol/L (3.5-5.1) Chloride Level 107mmol/L (98-107) Carbon Dioxide Level 17mmol/L (21-32) Anion Gap 17 (6-14) Blood Urea Nitrogen 46mg/dL (8-26) Creatinine 2.7mg/dL (0.7-1.3) Estimated GFR (Cockcroft-Gault) 22.4 Glucose Level 125mg/dL (70-99) Calcium Level 8.8mg/dL (8.5-10.1) Phosphorus Level 4.1mg/dL (2.6-4.7) Albumin 3.3g/dL (3.4-5.0) Test 11/24/16 08:04 11/24/16 09:47 11/24/16 11:19 Glucose (Fingerstick) 55mg/dL (70-99) 89mg/dL (70-99) 121mg/dL (70-99) Laboratory Tests Test 11/23/16 16:10 11/23/16 16:17 11/23/16 20:59 11/23/16 21:15 Troponin I Quantitative 0.079ng/mL (0.000-0.055) 0.307ng/mL (0.000-0.055) Glucose (Fingerstick) 317mg/dL (70-99) 260mg/dL (70-99) Test 11/24/16 04:00 11/24/16 04:30 11/24/16 08:04 11/24/16 09:47 Magnesium Level 2.3mg/dL (1.8-2.4) Troponin I Quantitative 0.736ng/mL (0.000-0.055) Thyroid Stimulating Hormone (TSH) 0.275uIU/mL (0.358-3.74) Sodium Level 141mmol/L (136-145) Potassium Level 4.0mmol/L (3.5-5.1) Chloride Level 107mmol/L (98-107) Carbon Dioxide Level 17mmol/L (21-32) Anion Gap 17 (6-14) Blood Urea Nitrogen 46mg/dL (8-26) Creatinine 2.7mg/dL (0.7-1.3) Estimated GFR (Cockcroft-Gault) 22.4 Glucose Level 125mg/dL (70-99) Calcium Level 8.8mg/dL (8.5-10.1) Phosphorus Level 4.1mg/dL (2.6-4.7) Albumin 3.3g/dL (3.4-5.0) Glucose (Fingerstick) 55mg/dL (70-99) 89mg/dL (70-99) Test 11/24/16 11:19 Glucose (Fingerstick) 121mg/dL (70-99) Medications Current Medications Albuterol/ Ipratropium 3 ml 3 ml 1X ONCE NEB Last administered on 11/21/16 02 :36; Start 11/21/16 at 02:45; Stop 11/21/16 at 02:46; Status DC Sodium Chloride 1,000 ml @ 100 mls/hr 1X ONCE IV Last administered on 04:59; Start 11/21/16 at 05:00; Stop 11/21/16 at 14:59; Status DC Sodium Chloride (Iv Sodium Chloride 0.9% 1000ml Bag) 1,000 ml @ 100 mls/hr Q10H IV Last administered on 11/22/16 10:45; Start 11/21/16 at 07:23; Stop at 07:22; Status DC Acetaminophen (Tylenol) 650 mg PRN Q4HRS PRN PO FEVER; Start 11/21/16 at 07:30 ; Stop 11/22/16 at 07:29; Status DC Albuterol/ Ipratropium (Duoneb) 3 ml RTQID NEB Last administered on 11/22/16 21:37; Start 11/21/16 at 08:00; Stop 11/22/16 at 07:59; Status DC Hydralazine HCl (Apresoline) 25 mg TID PO Last administered on 11/22/16 08:11 ; Start 11/21/16 at 09:00; Stop 11/22/16 at 09:37; Status DC Glipizide (Glucotrol) 10 mg BIDBFRMEAL PO Last administered on 11/23/16 17:07 ; Start 11/21/16 at 08:00 Multivitamins/ Calcium (Thera M Plus) 1 tab DAILY PO Last administered on 08:26; Start 11/21/16 at 09:00 Nifedipine (Procardia Xl) 90 mg DAILY PO Last administered on 11/24/16 08:26; Start 11/21/16 at 09:00 Insulin Aspart (Novolog) 0-9 UNITS TIDWMEALS SQ Last administered on 11/23/16 17:14; Start 11/21/16 at 08:00 Dextrose 12.5 gm 12.5 gm PRN Q15MIN PRN IV SEE COMMENTS Last administered on 08:21; Start 11/21/16 at 08:00 Magnesium Sulfate/ Dextrose (Magnesium Sulfate PREMIX 2GM) 50 ml @ 25 mls/hr PRN DAILY PRN IV for Mag < 1.7 on am labs; Start 11/21/16 at 15:15 Hydralazine HCl (Apresoline) 50 mg TID PO Last administered on 11/24/16 08:26 ; Start 11/22/16 at 14:00 Labetalol HCl 10 mg 10 mg PRN Q2HR PRN IVP HYPERTENSION, SEE COMMENTS; Start at 09:45 Iron Sucrose 200 mg/Sodium Chloride 110 ml @ 55 mls/hr 3X/WEEK IV Last administered on 11/23/16 08:39; Start 11/22/16 at 14:00; Stop 11/30/16 at 10:59 Magnesium Sulfate/ Dextrose (Magnesium Sulfate PREMIX 1GM) 100 ml @ 100 mls/hr 1X ONCE IV Last administered on 11/22/16 13:21; Start 11/22/16 at 13:30; Stop 11/22/16 at 14:29; Status DC Prednisone (Prednisone) 40 mg DAILY PO Last administered on 11/24/16 08:26; Start 11/22/16 at 15:00 Guaifenesin (Robitussin Dm) 10 ml QID PO Last administered on 11/22/16 17:16; Start 11/22/16 at 14:30 Albuterol/ Ipratropium (Duoneb) 3 ml RTQID NEB Last administered on 11/24/16 10:42; Start 11/22/16 at 16:00 Albuterol Sulfate (Ventolin Neb Soln) 2.5 mg PRN Q4HRS PRN NEB SHORTNESS OF BREATH; Start 11/22/16 at 14:30 Sodium Bicarbonate (Sodium Bicarbonate) 650 mg TID PO Last administered on 11/24 08:26; Start 11/23/16 at 14:00 Lacosamide (Vimpat) 50 mg BID PO Last administered on 11/24/16 08:26; Start at 21:00 Morphine Sulfate 2 mg PRN Q2HR PRN IV PAIN; Start 11/23/16 at 16:00 Active Scripts Active Reported Centrum Men's Tablet (Multivits,Ca,Min/Iron/FA/Lycop) 1 Each Tablet 1 Each PO DAILY Nifedipine Er (Nifedipine) 90 Mg Tab.er.24 90 Mg PO DAILY Hydralazine Hcl 25 Mg Tablet 25 Mg PO TID Irbesartan 300 Mg Tablet 300 Mg PO DAILY Glipizide 10 Mg Tablet 10 Mg PO BIDAC Vitals/I & O Vital Sign - Last 24 Hours 11/23/16 11/23/16 11/23/16 11/23/16 14:46 14:59 15:46 19:00 Temp 97.9 97.4 97.9 97.4 Pulse 88 88 86 Resp 18 20 B/P 136/77 136/77 130/72 Pulse Ox 100 100 O2 Delivery Room Air Room Air Room Air 11/23/16 11/23/16 11/23/16 11/23/16 19:59 20:00 22:06 23:26 Temp 97.5 97.5 Pulse 86 90 Resp 18 B/P 130/72 139/73 Pulse Ox 98 98 O2 Delivery Room Air Room Air Room Air 11/24/16 11/24/16 11/24/16 11/24/16 03:37 06:50 07:15 07:30 Temp 98.1 98.3 98.1 98.3 Pulse 91 81 Resp 18 20 B/P 153/72 128/72 Pulse Ox 97 99 95 O2 Delivery Room Air Room Air Room Air Room Air 11/24/16 11/24/16 11/24/16 11/24/16 07:45 08:26 08:26 10:42 Pulse 81 81 B/P 128/72 128/72 Pulse Ox 99 O2 Delivery Room Air Room Air 11/24/16 11:00 Temp 97.6 97.6 Pulse 96 Resp 24 B/P 157/88 Pulse Ox 96 O2 Delivery Room Air Intake and Output 11/23/16 11/23/16 11/24/16 15:00 23:00 07:00 Intake Total 240 ml 970 ml 300 ml Output Total 600 ml 600 ml Balance 240 ml 370 ml -300 ml KALE RAMIREZ MD Nov 24, 2016 12:26
[2016-11-24 15:04] VITALS: BP 140/79
--- NOTE | 2016-11-24 15:09 | PDOC ---
PROGRESS NOTES Assessment Assessment Essential tremor. SOB Cough Acute renal failure. Elevated PTH HTN DM Diabetic peripheral neuropathy Obesity RECOMMENDATIONS/PLAN: Continue Beta-Aspen. Continue Vimpat, increase to 100 mg bid. Treat medical diseases. Further evaluation for parathyroid disease per floor team. SUBJECTIVE: Tremors in hands. PAST MEDICAL AND SURGICAL HISTORY: Please see H&P ALLERGY:A Unknown MEDICATIONS: Refer to MAR REVIEW OF SYSTEMS: Constitutional: No malnutrition, weight loss, cachexia. Head: No traumatic brain or head injury. Skin: No edema, or rash. Ear: No infection, tinnitus. Eyes: No vision loss, or diplopia. Nose: No bleeding or purulent discharges. Hearing: Hearing loss. Neck: No injury. Cardiac: HTN Pulmonary: SOB, cough. GI: No GI Ulcer, GI bleeding Urinary/genital: BPH. Endocrine: Diabetes Mellitus, obesity. Skeletomuscular: No muscular atrophy, deformity. Neurological: see HP. Psychiatric: Denies drug use/abuse. Otherwise, not [id number] review of systems. PHYSICAL EXAMINATION: General appearance in subacute distress. HEENT: Normocephalic and nontraumatic. Eyes, nose, ears, and throat are unremarkable. Hearing decrease. Neck is supple. No lymphadenopathy. No Crepitus. Cardiovascular: S1, S2, regular rate and rhythm. Pulmonary: Clear to auscultation bilaterally. Abdomen: Bowel sounds are positive. Abdomen is soft, nontender, and nondistended. Extremities: No rash, lesions, or edema. No restriction of range of motion NEUROLOGICAL EXAMINATION: Awake. Oriented to place and person. PERRL. EOMI. CN: no focal findings. Muscle tone: No increase appreciated.. Muscle strength: 5- DTR: 2- UE, 0-1 LE Plantar reflex: Flexor response bilaterally Gait: not examined in bed. . Sensory exam: no abnormal findings. No obvious cerebellar signs elicited. Tremors noted in hands. Objective Objective Vital Signs Date Time Temp Pulse Resp B/P Pulse Ox O2 Delivery O2 Flow Rate FiO2 11/24/16 14:50 Room Air 11/24/16 11:00 97.6 96 24 157/88 96 97.6 Intake and Output 11/24/16 07:00 Intake Total 1510 ml Output Total 1200 ml Balance 310 ml Intake Oral 1510 ml Output Urine Total 1200 ml # Voids 1 Vitals Signs Vitals VS - Last 72 Hours, by Label Date Time Temp Pulse Resp B/P Pulse Ox O2 Delivery O2 Flow Rate FiO2 11/24/16 14:50 Room Air 11/24/16 11:00 97.6 96 24 157/88 96 Room Air 97.6 11/24/16 10:42 99 Room Air 11/24/16 08:26 81 128/72 11/24/16 08:26 81 128/72 11/24/16 07:45 Room Air 11/24/16 07:30 Room Air 11/24/16 07:15 98.3 81 20 128/72 95 Room Air 98.3 11/24/16 06:50 99 Room Air 11/24/16 03:37 98.1 91 18 153/72 97 Room Air 98.1 11/23/16 23:26 97.5 90 18 139/73 98 Room Air 97.5 11/23/16 22:06 86 130/72 11/23/16 20:00 Room Air 11/23/16 19:59 98 Room Air 11/23/16 19:00 97.4 86 20 130/72 100 Room Air 97.4 11/23/16 15:46 Room Air 11/23/16 14:59 97.9 88 18 136/77 100 Room Air 97.9 11/23/16 14:46 88 136/77 11/23/16 11:56 Room Air 11/23/16 11:00 97.9 93 18 144/83 98 Room Air 97.9 11/23/16 08:33 80 141/78 11/23/16 08:32 80 141/78 11/23/16 08:00 Room Air 11/23/16 07:07 100 Room Air 11/23/16 07:00 97.8 80 18 141/78 99 Room Air 97.8 Laboratory Laboratory Laboratory Tests Test 11/23/16 16:10 11/23/16 16:17 11/23/16 20:59 11/23/16 21:15 Troponin I Quantitative 0.079ng/mL (0.000-0.055) 0.307ng/mL (0.000-0.055) Glucose (Fingerstick) 317mg/dL (70-99) 260mg/dL (70-99) Test 11/24/16 04:00 11/24/16 04:30 11/24/16 08:04 11/24/16 09:47 Magnesium Level 2.3mg/dL (1.8-2.4) Troponin I Quantitative 0.736ng/mL (0.000-0.055) Thyroid Stimulating Hormone (TSH) 0.275uIU/mL (0.358-3.74) Sodium Level 141mmol/L (136-145) Potassium Level 4.0mmol/L (3.5-5.1) Chloride Level 107mmol/L (98-107) Carbon Dioxide Level 17mmol/L (21-32) Anion Gap 17 (6-14) Blood Urea Nitrogen 46mg/dL (8-26) Creatinine 2.7mg/dL (0.7-1.3) Estimated GFR (Cockcroft-Gault) 22.4 Glucose Level 125mg/dL (70-99) Calcium Level 8.8mg/dL (8.5-10.1) Phosphorus Level 4.1mg/dL (2.6-4.7) Albumin 3.3g/dL (3.4-5.0) Glucose (Fingerstick) 55mg/dL (70-99) 89mg/dL (70-99) Test 11/24/16 11:19 Glucose (Fingerstick) 121mg/dL (70-99) Medication Medications Current Medications Lacosamide (Vimpat) 50 mg BID PO Last administered on 11/24/16t 08:26; Start at 21:00 Morphine Sulfate 2 mg PRN Q2HR PRN IV PAIN; Start 11/23/16 at 16:00 Comment Review of Relevant I have reviewed the following items astrid (where applicable) has been applied. CARTER CROCKER MD Nov 24, 2016 15:09
[2016-11-24 19:00] VITALS: BP 150/79
[2016-11-24 19:23] LABS: ALPHA 1 0.3 g/dL (0.0-0.4); ALPHA 2 0.7 g/dL (0.4-1.0); BETA 1.1 g/dL (0.7-1.3); GAMMA 1.1 g/dL (0.4-1.8); IMMUNOGLOBULIN A 259 mg/dL (61-437); IMMUNOGLOBULIN G 1101 mg/dL (700-1600); IMMUNOGLOBULIN M 72 mg/dL (15-143); M-SPIKE Not Observed g/dL (Not Observed); PROTEIN TOTAL 6.3 g/dL (6.0-8.5)
[2016-11-24 23:00] VITALS: BP 142/87
[2016-11-25 03:00] VITALS: BP 141/68
[2016-11-25 06:11] LABS: ALBUMIN 3.1 g/dL (3.4-5.0); CALCIUM 8.8 mg/dL (8.5-10.1); CREATININE 2.8 mg/dL (0.7-1.3); GFR 21.5; PHOSPHORUS 3.9 mg/dL (2.6-4.7); POTASSIUM 3.4 mmol/L (3.5-5.1)
[2016-11-25 06:14] LABS: CHOLESTEROL/HDL RATIO 2.2
[2016-11-25] MEDS: IPRATRPIUM/ALBUTEROL 0.5/2.5MG 3 ML NEBU. NEB SCH ×4 (06:56→19:09)
[2016-11-25 07:00] VITALS: BP 144/95
[2016-11-25] MEDS: INSULIN ASPART 300 UNITS/3 ML INSULN.PEN SQ SCH ×3 (08:00→17:30)
[2016-11-25] MEDS: REGADENOSON 0.4 MG/5 ML DISP.SYRIN. IV ONE ×2 (08:15→09:02)
[2016-11-25] MEDS: MULTIVITAMIN with MINERAL TABLET. PO SCH (10:51)
[2016-11-25] MEDS: SODIUM BICARBONATE 650 MG TABLET. PO SCH ×3 (10:52→20:52)
[2016-11-25] MEDS: PREDNISONE 20 MG TABLET PO SCH (10:52)
[2016-11-25] MEDS: NIFEDIPINE ER 30 MG TAB.ER.24H PO SCH (10:52)
[2016-11-25] MEDS: HYDRALAZINE 50 MG TABLET PO SCH (10:52)
[2016-11-25] MEDS: GUAIFENESIN DM 200MG/20MG 10 ML SYRUP. PO SCH ×4 (10:53→20:54)
[2016-11-25] MEDS: LACOSAMIDE 50 MG TABLET PO SCH ×2 (10:53→20:53)
[2016-11-25] MEDS: GLIPIZIDE 5 MG TABLET PO SCH ×2 (10:53→17:23)
[2016-11-25] MEDS: IRON SUCROSE COMPLEX 200 MG in IV NORMAL SALINE 100ML 100 ML IV SCH (10:54)
[2016-11-25 11:00] VITALS: BP 153/90
--- NOTE | 2016-11-25 11:12 | PDOC2 ---
GI CONSULT Reason For Consult: Hepatitis B, C HPI: HPI: 86 y/o male evaluated in ER for cough, admitted w/ JENNIFER, also had chest pain/ rapid response yesterday w/ some troponin elevation, declined stress test this morning. Labs were positive for Hep B and C and GI asked to see. He was unaware of this diagnosis and denies risk factors. No GI symptoms except occasional diarrhea after eating certain foods. No GERD, n/v, dysphagia, abd pain, constipation, hematochezia, melena, weight loss, change in appetite. ( Note has previously reported weight loss.) Recalls previously normal EGD and colonoscopy. LFTs WNL on 11/21/16. PMH: PMH: HTN, HLD, PVD w/ stents, tremors, OA, prostate cancer s/p radiation, DM w/ neuropathy, bilateral knee replacement Social History: Smoke: Quit (1973) ALCOHOL: other (quit 1985) Drugs: None ROS: GEN: Denies fevers, chills, sweats HEENT: Denies blurred vision, sore throat CV: +chest pain (resolved) RESP: Denies shortness of air, cough GI: Per HPI : Denies hematuria, dysuria ENDO: ?weight loss NEURO: Denies confusion, dizziness MSK: +weakness SKIN: Denies jaundice, pruritus VItals: Vitals: Vital Signs Date Time Temp Pulse Resp B/P Pulse Ox O2 Delivery O2 Flow Rate FiO2 11/25/16 10:52 98 144/95 11/25/16 07:00 97.9 18 99 Room Air 97.9 Labs: Labs: Laboratory Tests Test 11/24/16 11:19 11/24/16 16:55 11/24/16 20:58 11/25/16 05:05 Glucose (Fingerstick) 121mg/dL (70-99) 331mg/dL (70-99) 298mg/dL (70-99) Sodium Level 139mmol/L (136-145) Potassium Level 3.4mmol/L (3.5-5.1) Chloride Level 107mmol/L (98-107) Carbon Dioxide Level 21mmol/L (21-32) Anion Gap 11 (6-14) Blood Urea Nitrogen 49mg/dL (8-26) Creatinine 2.8mg/dL (0.7-1.3) Estimated GFR (Cockcroft-Gault) 21.5 Glucose Level 95mg/dL (70-99) Calcium Level 8.8mg/dL (8.5-10.1) Phosphorus Level 3.9mg/dL (2.6-4.7) Magnesium Level 2.2mg/dL (1.8-2.4) Albumin 3.1g/dL (3.4-5.0) Triglycerides Level 55mg/dL (0-150) Cholesterol Level 138mg/dL (0-200) LDL Cholesterol, Calculated 65mg/dL (0-100) VLDL Cholesterol, Calculated 11mg/dL (0-40) HDL Cholesterol 62mg/dL (40-60) Cholesterol/HDL Ratio 2.2 Test 11/25/16 07:16 Glucose (Fingerstick) 80mg/dL (70-99) Allergies: Coded Allergies: No Known Drug Allergies (Unverified , 11/21/16) Medications: Current Medications Medications (Trade) Dose Ordered Sig/Kenisha Route PRN Reason Start Time Stop Time Status Last Admin Dose Admin Lacosamide (Vimpat) 100 mg BID PO 11/24/16 21:00 11/25/16 10:53 Imaging: Imaging: CXR IMPRESSION: No acute or focal process seen in the chest. Renal US IMPRESSION: Somewhat small but otherwise unremarkable kidneys. No hydronephrosis or mass is seen associated with either. PE: GEN: NAD HEENT: Atraumatic, PERRLA LUNGS: CTAB HEART: RRR, no murmurs ABD: NABS, S/ND/NT, no masses EXTREMITY: No edema SKIN: No rashes, no jaundice NEURO/PSYCH: A & O 3 A/P: A/P: Hep B and C JENNIFER -renal following Anemia -note iron, sat low Chest pain w/ some troponin elevation -declined stress test H/o prostate cancer CRC screen -reports previously normal colonoscopy ?wt loss -- Rec to check viral load which unfortunately Hep C PCR is a restricted test. Will review w/ Dr. Lang. ?need for liver imaging - note he declined stress test this morning GAY MANZANO Nov 25, 2016 11:12
--- NOTE | 2016-11-25 11:55 | PDOC ---
CARDIO Progress Notes Date and Time Date of Service 11/25/2016 Time of Evaluation 1145 Subjective Subjective: No Chest Pain, No shortness of breath, No Palpitations, No Dizziness Vitals Vitals Vital Signs Date Time Temp Pulse Resp B/P Pulse Ox O2 Delivery O2 Flow Rate FiO2 11/25/16 10:52 98 144/95 11/25/16 07:00 97.9 18 99 Room Air 97.9 Weight Weight [ ] Input and Output Intake and Output Intake and Output 11/25/16 07:00 Intake Total 800 ml Output Total 1250 ml Balance -450 ml Intake Oral 800 ml Output Urine Total 1250 ml Laboratory Labs Laboratory Tests Test 11/24/16 16:55 11/24/16 20:58 11/25/16 05:05 11/25/16 07:16 Glucose (Fingerstick) 331mg/dL (70-99) 298mg/dL (70-99) 80mg/dL (70-99) Sodium Level 139mmol/L (136-145) Potassium Level 3.4mmol/L (3.5-5.1) Chloride Level 107mmol/L (98-107) Carbon Dioxide Level 21mmol/L (21-32) Anion Gap 11 (6-14) Blood Urea Nitrogen 49mg/dL (8-26) Creatinine 2.8mg/dL (0.7-1.3) Estimated GFR (Cockcroft-Gault) 21.5 Glucose Level 95mg/dL (70-99) Calcium Level 8.8mg/dL (8.5-10.1) Phosphorus Level 3.9mg/dL (2.6-4.7) Magnesium Level 2.2mg/dL (1.8-2.4) Albumin 3.1g/dL (3.4-5.0) Triglycerides Level 55mg/dL (0-150) Cholesterol Level 138mg/dL (0-200) LDL Cholesterol, Calculated 65mg/dL (0-100) VLDL Cholesterol, Calculated 11mg/dL (0-40) HDL Cholesterol 62mg/dL (40-60) Cholesterol/HDL Ratio 2.2 Test 11/25/16 10:19 Glucose (Fingerstick) 92mg/dL (70-99) Physical Exam HEENT: Neck Supple W Full Motion Chest: Symmetric LUNGS: Clear to Auscultation Heart: S1S2, RRR, no thrills Extremities: No Edema Neurology: alert, follow commands Assessment Assessment 1. 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 JENNIFER per nephrology 3. elevated NT-proBNP in the setting of JENNIFER level 1222 and not diagnostic in > 80 year old no evidence of CHF on CXR 4. DM, II with DPN per primary 5. HTN previously treated with ARB which was stopped at time of admission currently treated with CCB and hydralazine - reasonably controlled 6. HLD LDLS = 62 per records has been on atorvastatin 10 mg daily with DM history, likely benefit from statin therapy 7. 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 see review of records below Plan Plan Will follow peripherally; please contact for further assistance Other Comments REVIEW OF RECORDS 10/14/2009: CARDIAC CATH: 3 x 30 BMS TO RCA - MID 80% LESION D2 - 1.7 MM IN DIAMETER - MEDICAL MANAGEMENT 30-40% OSTIAL LEFT MAIN RENAL ARTERY CATH RIGHT RENAL ARTERY 50% LEFT RENAL ARTERY 20% 02/06/2013: TTE: LVEF 60%; NO REGIONAL WMA AORTIC SCLEROSIS WITHOUT STENOSIS MILD TR NORMAL LVEDP 04/20/2016: OPV NO SYMPTOMS; NO CHANGES IN EKG; NO MEDICATION CHANGES; WAS TO RETURN IN 6 MONTHS WITH FLP NO EVIDENCE OF RECENT MPI AT [facility] APRN Nov 25, 2016 11:54
--- NOTE | 2016-11-25 12:42 | PDOC ---
PROGRESS NOTES Chief Complaint Chief Complaint 1. JENNIFER unknown if CKD 2. DM 2 on OHA since 1981 3. HTN, controlled 4. Proteinuria 5. Wheezy, possibly undiagnosed COPD? 6. Prev smoker 7. Gap metabolic acidosis 8. CHest pain, mild trop elevation in the setting of JENNIFER 9. PAst and active Hepatitis B infection 10. 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 PLAN: Await Hep B quantitative test OP MPI with his own cards - cards has signed off Possibly home soon, 24 or 48 hrs pending GI rounds and plans - [place] family, heavy about hepatitis B, treatmenet prognosis, outpt ff up etc Significant time 35 mins room alone Vitals Vitals Vital Signs Date Time Temp Pulse Resp B/P Pulse Ox O2 Delivery O2 Flow Rate FiO2 11/25/16 11:31 Room Air 11/25/16 11:00 97.7 94 18 153/90 100 97.7 Physical Exam General: Alert, Oriented X3, Cooperative, No acute distress Heart: Regular rate, Normal S1, Normal S2, No murmurs, Other (no carotid bruits ; tele: ST) Abdomen: Normal bowel sounds, Soft Extremities: Normal pulses, Other (feet "puffy") Skin: No breakdown Labs LABS Laboratory Tests Test 11/24/16 16:55 11/24/16 20:58 11/25/16 05:05 11/25/16 07:16 Glucose (Fingerstick) 331mg/dL (70-99) 298mg/dL (70-99) 80mg/dL (70-99) Sodium Level 139mmol/L (136-145) Potassium Level 3.4mmol/L (3.5-5.1) Chloride Level 107mmol/L (98-107) Carbon Dioxide Level 21mmol/L (21-32) Anion Gap 11 (6-14) Blood Urea Nitrogen 49mg/dL (8-26) Creatinine 2.8mg/dL (0.7-1.3) Estimated GFR (Cockcroft-Gault) 21.5 Glucose Level 95mg/dL (70-99) Calcium Level 8.8mg/dL (8.5-10.1) Phosphorus Level 3.9mg/dL (2.6-4.7) Magnesium Level 2.2mg/dL (1.8-2.4) Albumin 3.1g/dL (3.4-5.0) Triglycerides Level 55mg/dL (0-150) Cholesterol Level 138mg/dL (0-200) LDL Cholesterol, Calculated 65mg/dL (0-100) VLDL Cholesterol, Calculated 11mg/dL (0-40) HDL Cholesterol 62mg/dL (40-60) Cholesterol/HDL Ratio 2.2 Test 11/25/16 10:19 Glucose (Fingerstick) 92mg/dL (70-99) Review of Systems Review of Systems asleep did not awaken but positive for fatigability Assessment and Plan Assessmemt and Plan Problems Medical Problems: (1) Acute renal failure Status: Acute Problems: Comment Review of Relevant I have reviewed the following items astrid (where applicable) has been applied. Labs Laboratory Tests Test 11/23/16 16:10 11/23/16 16:17 11/23/16 20:59 11/23/16 21:15 Troponin I Quantitative 0.079ng/mL (0.000-0.055) 0.307ng/mL (0.000-0.055) Glucose (Fingerstick) 317mg/dL (70-99) 260mg/dL (70-99) Test 11/24/16 04:00 11/24/16 04:30 11/24/16 08:04 11/24/16 09:47 Magnesium Level 2.3mg/dL (1.8-2.4) Troponin I Quantitative 0.736ng/mL (0.000-0.055) Thyroid Stimulating Hormone (TSH) 0.275uIU/mL (0.358-3.74) Sodium Level 141mmol/L (136-145) Potassium Level 4.0mmol/L (3.5-5.1) Chloride Level 107mmol/L (98-107) Carbon Dioxide Level 17mmol/L (21-32) Anion Gap 17 (6-14) Blood Urea Nitrogen 46mg/dL (8-26) Creatinine 2.7mg/dL (0.7-1.3) Estimated GFR (Cockcroft-Gault) 22.4 Glucose Level 125mg/dL (70-99) Calcium Level 8.8mg/dL (8.5-10.1) Phosphorus Level 4.1mg/dL (2.6-4.7) Albumin 3.3g/dL (3.4-5.0) Glucose (Fingerstick) 55mg/dL (70-99) 89mg/dL (70-99) Test 11/24/16 11:19 11/24/16 16:55 11/24/16 20:58 11/25/16 05:05 Glucose (Fingerstick) 121mg/dL (70-99) 331mg/dL (70-99) 298mg/dL (70-99) Sodium Level 139mmol/L (136-145) Potassium Level 3.4mmol/L (3.5-5.1) Chloride Level 107mmol/L (98-107) Carbon Dioxide Level 21mmol/L (21-32) Anion Gap 11 (6-14) Blood Urea Nitrogen 49mg/dL (8-26) Creatinine 2.8mg/dL (0.7-1.3) Estimated GFR (Cockcroft-Gault) 21.5 Glucose Level 95mg/dL (70-99) Calcium Level 8.8mg/dL (8.5-10.1) Phosphorus Level 3.9mg/dL (2.6-4.7) Magnesium Level 2.2mg/dL (1.8-2.4) Albumin 3.1g/dL (3.4-5.0) Triglycerides Level 55mg/dL (0-150) Cholesterol Level 138mg/dL (0-200) LDL Cholesterol, Calculated 65mg/dL (0-100) VLDL Cholesterol, Calculated 11mg/dL (0-40) HDL Cholesterol 62mg/dL (40-60) Cholesterol/HDL Ratio 2.2 Test 11/25/16 07:16 11/25/16 10:19 Glucose (Fingerstick) 80mg/dL (70-99) 92mg/dL (70-99) Laboratory Tests Test 11/24/16 16:55 11/24/16 20:58 11/25/16 05:05 11/25/16 07:16 Glucose (Fingerstick) 331mg/dL (70-99) 298mg/dL (70-99) 80mg/dL (70-99) Sodium Level 139mmol/L (136-145) Potassium Level 3.4mmol/L (3.5-5.1) Chloride Level 107mmol/L (98-107) Carbon Dioxide Level 21mmol/L (21-32) Anion Gap 11 (6-14) Blood Urea Nitrogen 49mg/dL (8-26) Creatinine 2.8mg/dL (0.7-1.3) Estimated GFR (Cockcroft-Gault) 21.5 Glucose Level 95mg/dL (70-99) Calcium Level 8.8mg/dL (8.5-10.1) Phosphorus Level 3.9mg/dL (2.6-4.7) Magnesium Level 2.2mg/dL (1.8-2.4) Albumin 3.1g/dL (3.4-5.0) Triglycerides Level 55mg/dL (0-150) Cholesterol Level 138mg/dL (0-200) LDL Cholesterol, Calculated 65mg/dL (0-100) VLDL Cholesterol, Calculated 11mg/dL (0-40) HDL Cholesterol 62mg/dL (40-60) Cholesterol/HDL Ratio 2.2 Test 11/25/16 10:19 Glucose (Fingerstick) 92mg/dL (70-99) Medications Current Medications Albuterol/ Ipratropium 3 ml 3 ml 1X ONCE NEB Last administered on 11/21/16 02 :36; Start 11/21/16 at 02:45; Stop 11/21/16 at 02:46; Status DC Sodium Chloride 1,000 ml @ 100 mls/hr 1X ONCE IV Last administered on 04:59; Start 11/21/16 at 05:00; Stop 11/21/16 at 14:59; Status DC Sodium Chloride (Iv Sodium Chloride 0.9% 1000ml Bag) 1,000 ml @ 100 mls/hr Q10H IV Last administered on 11/22/16 10:45; Start 11/21/16 at 07:23; Stop at 07:22; Status DC Acetaminophen (Tylenol) 650 mg PRN Q4HRS PRN PO FEVER; Start 11/21/16 at 07:30 ; Stop 11/22/16 at 07:29; Status DC Albuterol/ Ipratropium (Duoneb) 3 ml RTQID NEB Last administered on 11/22/16 21:37; Start 11/21/16 at 08:00; Stop 11/22/16 at 07:59; Status DC Hydralazine HCl (Apresoline) 25 mg TID PO Last administered on 11/22/16 08:11 ; Start 11/21/16 at 09:00; Stop 11/22/16 at 09:37; Status DC Glipizide (Glucotrol) 10 mg BIDBFRMEAL PO Last administered on 11/25/16 10:53 ; Start 11/21/16 at 08:00 Multivitamins/ Calcium (Thera M Plus) 1 tab DAILY PO Last administered on 10:51; Start 11/21/16 at 09:00 Nifedipine (Procardia Xl) 90 mg DAILY PO Last administered on 11/25/16 10:52; Start 11/21/16 at 09:00 Insulin Aspart (Novolog) 0-9 UNITS TIDWMEALS SQ Last administered on 11/24/16 17:21; Start 11/21/16 at 08:00 Dextrose 12.5 gm 12.5 gm PRN Q15MIN PRN IV SEE COMMENTS Last administered on 08:21; Start 11/21/16 at 08:00 Magnesium Sulfate/ Dextrose (Magnesium Sulfate PREMIX 2GM) 50 ml @ 25 mls/hr PRN DAILY PRN IV for Mag < 1.7 on am labs; Start 11/21/16 at 15:15 Hydralazine HCl (Apresoline) 50 mg TID PO Last administered on 11/25/16 10:52 ; Start 11/22/16 at 14:00 Labetalol HCl 10 mg 10 mg PRN Q2HR PRN IVP HYPERTENSION, SEE COMMENTS; Start at 09:45 Iron Sucrose 200 mg/Sodium Chloride 110 ml @ 55 mls/hr 3X/WEEK IV Last administered on 11/25/16 10:54; Start 11/22/16 at 14:00; Stop 11/30/16 at 10:59 Magnesium Sulfate/ Dextrose (Magnesium Sulfate PREMIX 1GM) 100 ml @ 100 mls/hr 1X ONCE IV Last administered on 11/22/16 13:21; Start 11/22/16 at 13:30; Stop 11/22/16 at 14:29; Status DC Prednisone (Prednisone) 40 mg DAILY PO Last administered on 11/25/16 10:52; Start 11/22/16 at 15:00 Guaifenesin (Robitussin Dm) 10 ml QID PO Last administered on 11/25/16 10:53; Start 11/22/16 at 14:30 Albuterol/ Ipratropium (Duoneb) 3 ml RTQID NEB Last administered on 11/25/16 11:30; Start 11/22/16 at 16:00 Albuterol Sulfate (Ventolin Neb Soln) 2.5 mg PRN Q4HRS PRN NEB SHORTNESS OF BREATH; Start 11/22/16 at 14:30 Sodium Bicarbonate (Sodium Bicarbonate) 650 mg TID PO Last administered on 11/25 10:52; Start 11/23/16 at 14:00 Lacosamide (Vimpat) 50 mg BID PO Last administered on 11/24/16 08:26; Start at 21:00; Stop 11/24/16 at 15:08; Status DC Morphine Sulfate 2 mg PRN Q2HR PRN IV PAIN; Start 11/23/16 at 16:00 Lacosamide (Vimpat) 100 mg BID PO Last administered on 11/25/16 10:53; Start 11/24/16 at 21:00 Regadenoson (Lexiscan) 0.4 mg 1X ONCE IV ; Start 11/25/16 at 08:15; Stop at 08:16; Status DC Active Scripts Active Reported Centrum Men's Tablet (Multivits,Ca,Min/Iron/FA/Lycop) 1 Each Tablet 1 Each PO DAILY Nifedipine Er (Nifedipine) 90 Mg Tab.er.24 90 Mg PO DAILY Hydralazine Hcl 25 Mg Tablet 25 Mg PO TID Irbesartan 300 Mg Tablet 300 Mg PO DAILY Glipizide 10 Mg Tablet 10 Mg PO BIDAC Vitals/I & O Vital Sign - Last 24 Hours 11/24/16 11/24/16 11/24/16 11/24/16 14:50 15:04 15:18 18:19 Temp 97.8 97.8 Pulse 98 98 Resp 20 B/P 140/79 140/79 Pulse Ox 97 O2 Delivery Room Air Room Air Room Air 11/24/16 11/24/16 11/24/16 11/24/16 19:00 20:00 21:12 23:00 Temp 97.6 98.6 97.6 98.6 Pulse 99 99 93 Resp 20 20 B/P 150/79 150/79 142/87 Pulse Ox 92 96 O2 Delivery Room Air Room Air Room Air 11/25/16 11/25/16 11/25/16 11/25/16 03:00 06:56 07:00 10:52 Temp 98.6 97.9 98.6 97.9 Pulse 84 98 98 Resp 20 18 B/P 141/68 144/95 144/95 Pulse Ox 96 100 99 O2 Delivery Room Air Room Air Room Air 11/25/16 11/25/16 11/25/16 10:52 11:00 11:31 Temp 97.7 97.7 Pulse 98 94 Resp 18 B/P 144/95 153/90 Pulse Ox 100 O2 Delivery Room Air Room Air Intake and Output 11/24/16 11/24/16 11/25/16 15:00 23:00 07:00 Intake Total 240 ml 360 ml 200 ml Output Total 250 ml 500 ml 500 ml Balance -10 ml -140 ml -300 ml KALE RAMIREZ MD Nov 25, 2016 12:42
--- NOTE | 2016-11-25 13:36 | PDOC ---
SUBJECTIVE ROS CKD IV doign and feelin OK OVeral CVS: no Orthopnea, no CP RESP: no SOB, no HAWKINS GI: no Nausea, no Vomiting : no Dysuria, no Urgency OBJECTIVE Vital Signs Vital Signs Date Time Temp Pulse Resp B/P Pulse Ox O2 Delivery O2 Flow Rate FiO2 11/25/16 11:31 Room Air 11/25/16 11:00 97.7 94 18 153/90 100 97.7 I & 0 Intake and Output 11/25/16 07:00 Intake Total 800 ml Output Total 1250 ml Balance -450 ml Intake Oral 800 ml Output Urine Total 1250 ml PHYSICAL EXAM Physical Exam General Appearance: Awake Alert Oriented x 3 In no Distress Eyes: VIsion Unchanged Conjunctiva Normal EN: No EN Drainage Mucous Memb. mosit Neck: no JVD no JVP Supple no Thyromegaly CVS: S1 S2 ? soft Murmur No Gallop No Rub no Edema Resp: no Rales no Rhonchi no Acc. Muscle use GI: BS +ve NO Bruit Non Tender Non Distended : no CVA tenderness; no Suprapubic Tenderness Assessment & Plan ? CKD III/ Iv - this may be his new baseline. I have reviewed records from [facility] and he is konwn to have CKD III since 2009. D/d is wide at this time. See O for W/up as ordered. Creat is stable despite IVF. This may be his baseline. US WNL Current FLuid and E-lyte status does not necessitate emergent need for Dialysis. Will re-evaluate for Dialysis in am Wt Loss - defer to Primary team to work up, checking PSA Proteinuria - 2.4 gms ? 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 due to Hep B adn C. PEPs are - ve; was on ARB as OP so will restart here since holding it did not make much differecen Min ^ed PTH - check VIt D as OP. Anemia: IV Iron as ordered; Epogen if hgb < 10. Transfuse as needed. HTN: Current BP meds reviewed. See orders for changes. HepB + C appreciate GI input - check ing C3C4 and Cryo (less likely) Discussed Plan of Care and prognosis etc. at length with family () COMMENT/RELEVANT DATA Meds Current Medications Medications (Trade) Dose Ordered Sig/Kenisha Start Time Stop Time Status Last Admin Dose Admin Acetaminophen (Tylenol) 650 mg PRN Q4HRS PRN 11/21/16 07:30 11/22/16 07:29 DC Albuterol Sulfate (Ventolin Neb Soln) 2.5 mg PRN Q4HRS PRN 11/22/16 14:30 Albuterol/ Ipratropium (Duoneb) 3 ml RTQID 11/22/16 16:00 11/25/16 11:30 3 ML Albuterol/ Ipratropium 3 ml 3 ml 1X ONCE 11/21/16 02:45 11/21/16 02:46 DC 11/21/16 02:36 3 ML Dextrose 12.5 gm 12.5 gm PRN Q15MIN PRN 11/21/16 08:00 11/24/16 08:21 12.5 GM Glipizide (Glucotrol) 10 mg BIDBFRMEAL 11/21/16 08:00 11/25/16 10:53 10 MG Guaifenesin (Robitussin Dm) 10 ml QID 11/22/16 14:30 11/25/16 10:53 10 ML Hydralazine HCl (Apresoline) 50 mg TID 11/22/16 14:00 11/25/16 10:52 50 MG Insulin Aspart (Novolog) 0-9 UNITS TIDWMEALS 11/21/16 08:00 11/24/16 17:21 9 UNITS Iron Sucrose 200 mg/Sodium Chloride 110 ml @ 55 mls/hr 3X/WEEK 11/22/16 14:00 11/30/16 10:59 11/25/16 10:54 55 MLS/HR Labetalol HCl 10 mg 10 mg PRN Q2HR PRN 11/22/16 09:45 Lacosamide (Vimpat) 100 mg BID 11/24/16 21:00 11/25/16 10:53 100 MG Magnesium Sulfate/ Dextrose (Magnesium Sulfate PREMIX 1GM) 100 ml @ 100 mls/hr 1X ONCE 11/22/16 13:30 11/22/16 14:29 DC 11/22/16 13:21 100 MLS/HR Magnesium Sulfate/ Dextrose (Magnesium Sulfate PREMIX 2GM) 50 ml @ 25 mls/hr PRN DAILY PRN 11/21/16 15:15 Morphine Sulfate 2 mg PRN Q2HR PRN 11/23/16 16:00 Multivitamins/ Calcium (Thera M Plus) 1 tab DAILY 11/21/16 09:00 11/25/16 10:51 1 TAB Nifedipine (Procardia Xl) 90 mg DAILY 11/21/16 09:00 11/25/16 10:52 90 MG Prednisone (Prednisone) 40 mg DAILY 11/22/16 15:00 11/25/16 10:52 40 MG Regadenoson (Lexiscan) 0.4 mg 1X ONCE 11/25/16 08:15 11/25/16 08:16 DC Sodium Bicarbonate (Sodium Bicarbonate) 650 mg TID 11/23/16 14:00 11/25/16 10:52 650 MG Sodium Chloride (Iv Sodium Chloride 0.9% 1000ml Bag) 1,000 ml @ 100 mls/hr Q10H 11/21/16 07:23 11/22/16 07:22 DC 11/22/16 10:45 100 MLS/HR Lab Laboratory Tests Test 11/24/16 16:55 11/24/16 20:58 11/25/16 05:05 11/25/16 07:16 Glucose (Fingerstick) 331mg/dL (70-99) 298mg/dL (70-99) 80mg/dL (70-99) Sodium Level 139mmol/L (136-145) Potassium Level 3.4mmol/L (3.5-5.1) Chloride Level 107mmol/L (98-107) Carbon Dioxide Level 21mmol/L (21-32) Anion Gap 11 (6-14) Blood Urea Nitrogen 49mg/dL (8-26) Creatinine 2.8mg/dL (0.7-1.3) Estimated GFR (Cockcroft-Gault) 21.5 Glucose Level 95mg/dL (70-99) Calcium Level 8.8mg/dL (8.5-10.1) Phosphorus Level 3.9mg/dL (2.6-4.7) Magnesium Level 2.2mg/dL (1.8-2.4) Albumin 3.1g/dL (3.4-5.0) Triglycerides Level 55mg/dL (0-150) Cholesterol Level 138mg/dL (0-200) LDL Cholesterol, Calculated 65mg/dL (0-100) VLDL Cholesterol, Calculated 11mg/dL (0-40) HDL Cholesterol 62mg/dL (40-60) Cholesterol/HDL Ratio 2.2 Test 11/25/16 10:19 Glucose (Fingerstick) 92mg/dL (70-99) TIM TURNER MD Nov 25, 2016 13:36
--- NOTE | 2016-11-25 14:10 | RAD ---
APPROVED REPORT Test Type: NONE pt declined stress testing Stress Nurse/Tech: ANAMIKA Menjivar Test Indications: Chest pain and dyspnea Cardiac History: none Medications: see EHR Medical History: See Electronic Medical Record Resting ECG: none done INTERPRETATION Stress EKG Conclusion: The patient refused stress testing after resting images were obtained. Imaging Protocol IMAGE PROTOCOL: Rest only Rest: Stress: Viability: Radiopharm.Tc99m Sestamibi Dose12.5mCi Duration 15min. Img Date 11/25/2016 Inj-Img [id number]. Rest Admin Site:IV - Left HandAdministrator:ANAMIKA Menjivar LV Perfusion Resting images showed no significant defects. The patient refused stress testing. LV Perf. Quant 17 Seg. SRS0.00 Stress Defect Extent (% LAD)Rest Defect Extent (% LAD)0.00Rev. Defect Extent (% LAD) Stress Defect Extent (% LCX) Rest Defect Extent (% LCX)5.00Rev. Defect Extent (% LCX) Stress Defect Extent (% RCA)Rest Defect Extent (% RCA)0.00Rev. Defect Extent (% RCA) Stress Defect Extent (% KAILEY)Rest Defect Extent (% KAILEY)1.70Rev. Defect Extent (% KAILEY) Conclusion 1. The patient refused stress testing. 2. Rest images were obtained and were normal.
[2016-11-25 15:02] VITALS: BP 162/86
[2016-11-25 19:00] VITALS: BP 141/72
[2016-11-25 20:13] LABS: GAMMA UR 10.1 % (.); M-SPIKE, % Not Observed % (Not Observed); PROTEIN 24 UR 2648.4 mg/24 hr (30.0-150.0); PROTEIN UR 220.7 mg/dL (Not Estab.)
[2016-11-25 20:13] LABS: C4 COMPLEMENT 34 mg/dL (14-44)
[2016-11-25 22:12] LABS: C3 COMPLEMENT 113 mg/dL (82-167)
[2016-11-25 23:00] VITALS: BP 164/81
[2016-11-26 05:11] LABS: CALCIUM 8.7 mg/dL (8.5-10.1); CREATININE 2.5 mg/dL (0.7-1.3); GFR 24.5; PHOSPHORUS 3.2 mg/dL (2.6-4.7); POTASSIUM 3.7 mmol/L (3.5-5.1)
[2016-11-26 07:00] VITALS: BP 168/95
[2016-11-26] MEDS: IPRATRPIUM/ALBUTEROL 0.5/2.5MG 3 ML NEBU. NEB SCH ×3 (07:01→15:40)
[2016-11-26 07:31] LABS: PSA FREE <0.01 ng/mL; PSA TOTAL <0.1 ng/mL (0.0-4.0)
[2016-11-26] MEDS: INSULIN ASPART 300 UNITS/3 ML INSULN.PEN SQ SCH ×2 (08:00→12:00)
[2016-11-26] MEDS: GUAIFENESIN DM 200MG/20MG 10 ML SYRUP. PO SCH ×2 (08:45→13:00)
[2016-11-26] MEDS: NIFEDIPINE ER 30 MG TAB.ER.24H PO SCH (08:45)
[2016-11-26] MEDS: SODIUM BICARBONATE 650 MG TABLET. PO SCH (08:45)
[2016-11-26] MEDS: MULTIVITAMIN with MINERAL TABLET. PO SCH (08:46)
[2016-11-26] MEDS: GLIPIZIDE 5 MG TABLET PO SCH (08:46)
[2016-11-26] MEDS: PREDNISONE 20 MG TABLET PO SCH (08:46)
[2016-11-26] MEDS: LACOSAMIDE 50 MG TABLET PO SCH (08:47)
[2016-11-26] MEDS ORDERED: LOSARTAN POTASSIUM 50 MG TABLET. PO SCH (09:00)
--- NOTE | 2016-11-26 09:55 | PDOC ---
PROGRESS NOTES Chief Complaint Chief Complaint 1. Acute Kidney Injury, unknown if CKD 2. DM 2 on OHA since 1981 3. Hypertension 4. Proteinuria 5. Wheezy, possibly undiagnosed COPD? 6. Previous smoker 7. Gap metabolic acidosis 8. Chest pain, mild trop elevation in the setting of JENNIFER 9. Past and active Hepatitis B infection 10. Past hepatitis C infection History of Present Illness History of Present Illness Pt awake and alert when seen and examined this AM. Pt states that he is feeling "ok" and would really like to go home. Pt denies any current CP or SOA. Pt has no jaundice and does not appear toxic. Creatinine stable at around 2.5. VSS- All questions and concerns answered and addressed. Vitals Vitals Vital Signs Date Time Temp Pulse Resp B/P Pulse Ox O2 Delivery O2 Flow Rate FiO2 11/26/16 08:46 88 168/95 11/26/16 07:03 98 Room Air 11/26/16 07:00 97.7 18 97.7 Physical Exam General: Alert, Oriented X3, Cooperative, No acute distress Heart: Regular rate, Normal S1, Normal S2, No murmurs, Other (no carotid bruits ; tele: ST) Lungs: Clear Abdomen: Normal bowel sounds, Soft Extremities: No clubbing, No cyanosis, Normal pulses, Other (feet "puffy") Skin: No rashes, No breakdown, No significant lesion Labs LABS Laboratory Tests Test 11/25/16 10:19 11/25/16 16:12 11/25/16 20:12 11/26/16 04:30 Glucose (Fingerstick) 92mg/dL (70-99) 231mg/dL (70-99) 357mg/dL (70-99) Sodium Level 141mmol/L (136-145) Potassium Level 3.7mmol/L (3.5-5.1) Chloride Level 106mmol/L (98-107) Carbon Dioxide Level 22mmol/L (21-32) Anion Gap 13 (6-14) Blood Urea Nitrogen 51mg/dL (8-26) Creatinine 2.5mg/dL (0.7-1.3) Estimated GFR (Cockcroft-Gault) 24.5 Glucose Level 216mg/dL (70-99) Calcium Level 8.7mg/dL (8.5-10.1) Phosphorus Level 3.2mg/dL (2.6-4.7) Magnesium Level 2.0mg/dL (1.8-2.4) Albumin 3.0g/dL (3.4-5.0) Test 11/26/16 07:20 Glucose (Fingerstick) 85mg/dL (70-99) Review of Systems Review of Systems Patient complaint of hunger Patient complaint of fatigue Assessment and Plan Assessmemt and Plan Problems Medical Problems: (1) Acute renal failure Status: Acute Assessment: 1. Acute Kidney Injury, unknown if CKD 2. DM 2 on OHA since 1981 3. Hypertension 4. Proteinuria 5. Wheezy, possibly undiagnosed COPD? 6. Previous smoker 7. Gap metabolic acidosis 8. Chest pain, mild trop elevation in the setting of JENNIFER 9. Past and active Hepatitis B infection 10. Past hepatitis C infection Plan: Continue to monitor the patient per floor protocol Daily labs- CBC, BMP, BUN and Cr Daily PTOT Appreciate all subspecialty input and recommendations Patient plans for outpatient MPI at mid December Per GI recommendation - Will not pursue antiviral therapy Per Neurology recommendation -Vimpat 100 mg BID Possible DC in next 24 when ok with subspecialist JORGE RN Problems: Comment Review of Relevant I have reviewed the following items astrid (where applicable) has been applied. Labs Laboratory Tests Test 11/24/16 11:19 11/24/16 16:55 11/24/16 18:20 11/24/16 20:58 Glucose (Fingerstick) 121mg/dL (70-99) 331mg/dL (70-99) 298mg/dL (70-99) Complement C3 113mg/dL (82-167) Complement C4 34mg/dL (14-44) Test 11/25/16 05:05 11/25/16 07:16 11/25/16 10:19 11/25/16 16:12 Sodium Level 139mmol/L (136-145) Potassium Level 3.4mmol/L (3.5-5.1) Chloride Level 107mmol/L (98-107) Carbon Dioxide Level 21mmol/L (21-32) Anion Gap 11 (6-14) Blood Urea Nitrogen 49mg/dL (8-26) Creatinine 2.8mg/dL (0.7-1.3) Estimated GFR (Cockcroft-Gault) 21.5 Glucose Level 95mg/dL (70-99) Calcium Level 8.8mg/dL (8.5-10.1) Phosphorus Level 3.9mg/dL (2.6-4.7) Magnesium Level 2.2mg/dL (1.8-2.4) Albumin 3.1g/dL (3.4-5.0) Triglycerides Level 55mg/dL (0-150) Cholesterol Level 138mg/dL (0-200) LDL Cholesterol, Calculated 65mg/dL (0-100) VLDL Cholesterol, Calculated 11mg/dL (0-40) HDL Cholesterol 62mg/dL (40-60) Cholesterol/HDL Ratio 2.2 Glucose (Fingerstick) 80mg/dL (70-99) 92mg/dL (70-99) 231mg/dL (70-99) Test 11/25/16 20:12 11/26/16 04:30 11/26/16 07:20 Glucose (Fingerstick) 357mg/dL (70-99) 85mg/dL (70-99) Sodium Level 141mmol/L (136-145) Potassium Level 3.7mmol/L (3.5-5.1) Chloride Level 106mmol/L (98-107) Carbon Dioxide Level 22mmol/L (21-32) Anion Gap 13 (6-14) Blood Urea Nitrogen 51mg/dL (8-26) Creatinine 2.5mg/dL (0.7-1.3) Estimated GFR (Cockcroft-Gault) 24.5 Glucose Level 216mg/dL (70-99) Calcium Level 8.7mg/dL (8.5-10.1) Phosphorus Level 3.2mg/dL (2.6-4.7) Magnesium Level 2.0mg/dL (1.8-2.4) Albumin 3.0g/dL (3.4-5.0) Laboratory Tests Test 11/25/16 10:19 11/25/16 16:12 11/25/16 20:12 11/26/16 04:30 Glucose (Fingerstick) 92mg/dL (70-99) 231mg/dL (70-99) 357mg/dL (70-99) Sodium Level 141mmol/L (136-145) Potassium Level 3.7mmol/L (3.5-5.1) Chloride Level 106mmol/L (98-107) Carbon Dioxide Level 22mmol/L (21-32) Anion Gap 13 (6-14) Blood Urea Nitrogen 51mg/dL (8-26) Creatinine 2.5mg/dL (0.7-1.3) Estimated GFR (Cockcroft-Gault) 24.5 Glucose Level 216mg/dL (70-99) Calcium Level 8.7mg/dL (8.5-10.1) Phosphorus Level 3.2mg/dL (2.6-4.7) Magnesium Level 2.0mg/dL (1.8-2.4) Albumin 3.0g/dL (3.4-5.0) Test 11/26/16 07:20 Glucose (Fingerstick) 85mg/dL (70-99) Medications Current Medications Albuterol/ Ipratropium 3 ml 3 ml 1X ONCE NEB Last administered on 11/21/16 02 :36; Start 11/21/16 at 02:45; Stop 11/21/16 at 02:46; Status DC Sodium Chloride 1,000 ml @ 100 mls/hr 1X ONCE IV Last administered on 04:59; Start 11/21/16 at 05:00; Stop 11/21/16 at 14:59; Status DC Sodium Chloride (Iv Sodium Chloride 0.9% 1000ml Bag) 1,000 ml @ 100 mls/hr Q10H IV Last administered on 11/22/16 10:45; Start 11/21/16 at 07:23; Stop at 07:22; Status DC Acetaminophen (Tylenol) 650 mg PRN Q4HRS PRN PO FEVER; Start 11/21/16 at 07:30 ; Stop 11/22/16 at 07:29; Status DC Albuterol/ Ipratropium (Duoneb) 3 ml RTQID NEB Last administered on 11/22/16 21:37; Start 11/21/16 at 08:00; Stop 11/22/16 at 07:59; Status DC Hydralazine HCl (Apresoline) 25 mg TID PO Last administered on 11/22/16 08:11 ; Start 11/21/16 at 09:00; Stop 11/22/16 at 09:37; Status DC Glipizide (Glucotrol) 10 mg BIDBFRMEAL PO Last administered on 11/26/16 08:46 ; Start 11/21/16 at 08:00 Multivitamins/ Calcium (Thera M Plus) 1 tab DAILY PO Last administered on 08:46; Start 11/21/16 at 09:00 Nifedipine (Procardia Xl) 90 mg DAILY PO Last administered on 11/26/16 08:45; Start 11/21/16 at 09:00 Insulin Aspart (Novolog) 0-9 UNITS TIDWMEALS SQ Last administered on 11/25/16 17:30; Start 11/21/16 at 08:00 Dextrose 12.5 gm 12.5 gm PRN Q15MIN PRN IV SEE COMMENTS Last administered on 08:21; Start 11/21/16 at 08:00 Magnesium Sulfate/ Dextrose (Magnesium Sulfate PREMIX 2GM) 50 ml @ 25 mls/hr PRN DAILY PRN IV for Mag < 1.7 on am labs; Start 11/21/16 at 15:15 Hydralazine HCl (Apresoline) 50 mg TID PO Last administered on 11/25/16 10:52 ; Start 11/22/16 at 14:00; Stop 11/25/16 at 13:36; Status DC Labetalol HCl 10 mg 10 mg PRN Q2HR PRN IVP HYPERTENSION, SEE COMMENTS; Start at 09:45 Iron Sucrose 200 mg/Sodium Chloride 110 ml @ 55 mls/hr 3X/WEEK IV Last administered on 11/25/16 10:54; Start 11/22/16 at 14:00; Stop 11/30/16 at 10:59 Magnesium Sulfate/ Dextrose (Magnesium Sulfate PREMIX 1GM) 100 ml @ 100 mls/hr 1X ONCE IV Last administered on 11/22/16 13:21; Start 11/22/16 at 13:30; Stop 11/22/16 at 14:29; Status DC Prednisone (Prednisone) 40 mg DAILY PO Last administered on 11/26/16 08:46; Start 11/22/16 at 15:00 Guaifenesin (Robitussin Dm) 10 ml QID PO Last administered on 11/26/16 08:45; Start 11/22/16 at 14:30 Albuterol/ Ipratropium (Duoneb) 3 ml RTQID NEB Last administered on 11/26/16 07:01; Start 11/22/16 at 16:00 Albuterol Sulfate (Ventolin Neb Soln) 2.5 mg PRN Q4HRS PRN NEB SHORTNESS OF BREATH; Start 11/22/16 at 14:30 Sodium Bicarbonate (Sodium Bicarbonate) 650 mg TID PO Last administered on 11/26 08:45; Start 11/23/16 at 14:00 Lacosamide (Vimpat) 50 mg BID PO Last administered on 11/24/16 08:26; Start at 21:00; Stop 11/24/16 at 15:08; Status DC Morphine Sulfate 2 mg PRN Q2HR PRN IV PAIN; Start 11/23/16 at 16:00 Lacosamide (Vimpat) 100 mg BID PO Last administered on 11/26/16 08:47; Start 11/24/16 at 21:00 Regadenoson (Lexiscan) 0.4 mg 1X ONCE IV ; Start 11/25/16 at 08:15; Stop at 08:16; Status DC Losartan Potassium (Cozaar) 100 mg DAILY PO Last administered on 11/26/16 08: 46; Start 11/26/16 at 09:00 Active Scripts Active Reported Centrum Men's Tablet (Multivits,Ca,Min/Iron/FA/Lycop) 1 Each Tablet 1 Each PO DAILY Nifedipine Er (Nifedipine) 90 Mg Tab.er.24 90 Mg PO DAILY Hydralazine Hcl 25 Mg Tablet 25 Mg PO TID Irbesartan 300 Mg Tablet 300 Mg PO DAILY Glipizide 10 Mg Tablet 10 Mg PO BIDAC Vitals/I & O Vital Sign - Last 24 Hours 11/25/16 11/25/16 11/25/16 11/25/16 10:52 10:52 11:00 11:31 Temp 97.7 97.7 Pulse 98 98 94 Resp 18 B/P 144/95 144/95 153/90 Pulse Ox 100 O2 Delivery Room Air Room Air 11/25/16 11/25/16 11/25/16 11/25/16 15:02 15:04 19:00 19:11 Temp 97.9 97.7 97.9 97.7 Pulse 70 86 Resp 18 20 B/P 162/86 141/72 Pulse Ox 98 97 98 O2 Delivery Room Air Room Air Room Air Room Air 11/25/16 11/25/16 11/26/16 11/26/16 20:00 23:00 07:00 07:03 Temp 97.5 97.7 97.5 97.7 Pulse 105 88 Resp 18 B/P 164/81 168/95 Pulse Ox 98 98 98 O2 Delivery Room Air Room Air Room Air Room Air 11/26/16 11/26/16 08:45 08:46 Pulse 88 88 B/P 168/95 168/95 Intake and Output 11/25/16 11/25/16 11/26/16 15:00 23:00 07:00 Intake Total 120 ml 770 ml 300 ml Output Total 475 ml 600 ml 600 ml Balance -355 ml 170 ml -300 ml RAUL RENEE III DO Nov 26, 2016 09:55
--- NOTE | 2016-11-26 10:17 | PDOC ---
PROGRESS NOTES Assessment Problems Medical Problems: (1) Acute renal failure Status: Acute Essential tremor. SOB Cough Acute renal failure. Elevated PTH HTN DM Diabetic peripheral neuropathy Obesity RECOMMENDATIONS/PLAN: Continue Beta-Aspen. Continue Vimpat, increase to 100 mg bid. Treat medical diseases. Further evaluation for parathyroid disease per floor team. SUBJECTIVE: Tremors in hands. PAST MEDICAL AND SURGICAL HISTORY: Please see H&P ALLERGY:A Unknown MEDICATIONS: Refer to MAR REVIEW OF SYSTEMS: Constitutional: No malnutrition, weight loss, cachexia. Head: No traumatic brain or head injury. Skin: No edema, or rash. Ear: No infection, tinnitus. Eyes: No vision loss, or diplopia. Nose: No bleeding or purulent discharges. Hearing: Hearing loss. Neck: No injury. Cardiac: HTN Pulmonary: SOB, cough. GI: No GI Ulcer, GI bleeding Urinary/genital: BPH. Endocrine: Diabetes Mellitus, obesity. Skeletomuscular: No muscular atrophy, deformity. Neurological: see HP. Psychiatric: Denies drug use/abuse. Otherwise, not [id number] review of systems. PHYSICAL EXAMINATION: General appearance in subacute distress. HEENT: Normocephalic and nontraumatic. Eyes, nose, ears, and throat are unremarkable. Hearing decrease. Neck is supple. No lymphadenopathy. No Crepitus. Cardiovascular: S1, S2, regular rate and rhythm. Pulmonary: Clear to auscultation bilaterally. Abdomen: Bowel sounds are positive. Abdomen is soft, nontender, and nondistended. Extremities: No rash, lesions, or edema. No restriction of range of motion NEUROLOGICAL EXAMINATION: Objective Vital Signs Date Time Temp Pulse Resp B/P Pulse Ox O2 Delivery O2 Flow Rate FiO2 11/26/16 08:46 88 168/95 11/26/16 07:03 98 Room Air 11/26/16 07:00 97.7 18 97.7 Intake and Output 11/26/16 07:00 Intake Total 1190 ml Output Total 1675 ml Balance -485 ml Intake Oral 1190 ml Output Urine Total 1675 ml # Voids 1 PHYSICAL EXAM Alert. Oriented to time, place and person. PERRL. EOMI. CN: no focal findings. Muscle tone: normal. Muscle strength: 5-/5 DTR: 1+ Plantar reflex: flexor Gait: not examined in bed. Sensory exam: no abnormal findings. No cerebellar signs elicited. Mild limb postural tremor Review of Relevant I have reviewed the following items astrid (where applicable) has been applied. Labs Laboratory Tests Test 11/24/16 11:19 11/24/16 16:55 11/24/16 18:20 11/24/16 20:58 Glucose (Fingerstick) 121mg/dL (70-99) 331mg/dL (70-99) 298mg/dL (70-99) Complement C3 113mg/dL (82-167) Complement C4 34mg/dL (14-44) Test 11/25/16 05:05 11/25/16 07:16 11/25/16 10:19 11/25/16 16:12 Sodium Level 139mmol/L (136-145) Potassium Level 3.4mmol/L (3.5-5.1) Chloride Level 107mmol/L (98-107) Carbon Dioxide Level 21mmol/L (21-32) Anion Gap 11 (6-14) Blood Urea Nitrogen 49mg/dL (8-26) Creatinine 2.8mg/dL (0.7-1.3) Estimated GFR (Cockcroft-Gault) 21.5 Glucose Level 95mg/dL (70-99) Calcium Level 8.8mg/dL (8.5-10.1) Phosphorus Level 3.9mg/dL (2.6-4.7) Magnesium Level 2.2mg/dL (1.8-2.4) Albumin 3.1g/dL (3.4-5.0) Triglycerides Level 55mg/dL (0-150) Cholesterol Level 138mg/dL (0-200) LDL Cholesterol, Calculated 65mg/dL (0-100) VLDL Cholesterol, Calculated 11mg/dL (0-40) HDL Cholesterol 62mg/dL (40-60) Cholesterol/HDL Ratio 2.2 Glucose (Fingerstick) 80mg/dL (70-99) 92mg/dL (70-99) 231mg/dL (70-99) Test 11/25/16 20:12 11/26/16 04:30 11/26/16 07:20 Glucose (Fingerstick) 357mg/dL (70-99) 85mg/dL (70-99) Sodium Level 141mmol/L (136-145) Potassium Level 3.7mmol/L (3.5-5.1) Chloride Level 106mmol/L (98-107) Carbon Dioxide Level 22mmol/L (21-32) Anion Gap 13 (6-14) Blood Urea Nitrogen 51mg/dL (8-26) Creatinine 2.5mg/dL (0.7-1.3) Estimated GFR (Cockcroft-Gault) 24.5 Glucose Level 216mg/dL (70-99) Calcium Level 8.7mg/dL (8.5-10.1) Phosphorus Level 3.2mg/dL (2.6-4.7) Magnesium Level 2.0mg/dL (1.8-2.4) Albumin 3.0g/dL (3.4-5.0) Laboratory Tests Test 11/25/16 10:19 11/25/16 16:12 11/25/16 20:12 11/26/16 04:30 Glucose (Fingerstick) 92mg/dL (70-99) 231mg/dL (70-99) 357mg/dL (70-99) Sodium Level 141mmol/L (136-145) Potassium Level 3.7mmol/L (3.5-5.1) Chloride Level 106mmol/L (98-107) Carbon Dioxide Level 22mmol/L (21-32) Anion Gap 13 (6-14) Blood Urea Nitrogen 51mg/dL (8-26) Creatinine 2.5mg/dL (0.7-1.3) Estimated GFR (Cockcroft-Gault) 24.5 Glucose Level 216mg/dL (70-99) Calcium Level 8.7mg/dL (8.5-10.1) Phosphorus Level 3.2mg/dL (2.6-4.7) Magnesium Level 2.0mg/dL (1.8-2.4) Albumin 3.0g/dL (3.4-5.0) Test 11/26/16 07:20 Glucose (Fingerstick) 85mg/dL (70-99) Medications Current Medications Albuterol/ Ipratropium 3 ml 3 ml 1X ONCE NEB Last administered on 11/21/16t 02 :36; Start 11/21/16 at 02:45; Stop 11/21/16 at 02:46; Status DC Sodium Chloride 1,000 ml @ 100 mls/hr 1X ONCE IV Last administered on 04:59; Start 11/21/16 at 05:00; Stop 11/21/16 at 14:59; Status DC Sodium Chloride (Iv Sodium Chloride 0.9% 1000ml Bag) 1,000 ml @ 100 mls/hr Q10H IV Last administered on 11/22/16 10:45; Start 11/21/16 at 07:23; Stop at 07:22; Status DC Acetaminophen (Tylenol) 650 mg PRN Q4HRS PRN PO FEVER; Start 11/21/16 at 07:30 ; Stop 11/22/16 at 07:29; Status DC Albuterol/ Ipratropium (Duoneb) 3 ml RTQID NEB Last administered on 11/22/16 21:37; Start 11/21/16 at 08:00; Stop 11/22/16 at 07:59; Status DC Hydralazine HCl (Apresoline) 25 mg TID PO Last administered on 11/22/16 08:11 ; Start 11/21/16 at 09:00; Stop 11/22/16 at 09:37; Status DC Glipizide (Glucotrol) 10 mg BIDBFRMEAL PO Last administered on 11/26/16 08:46 ; Start 11/21/16 at 08:00 Multivitamins/ Calcium (Thera M Plus) 1 tab DAILY PO Last administered on 08:46; Start 11/21/16 at 09:00 Nifedipine (Procardia Xl) 90 mg DAILY PO Last administered on 11/26/16 08:45; Start 11/21/16 at 09:00 Insulin Aspart (Novolog) 0-9 UNITS TIDWMEALS SQ Last administered on 11/25/16 17:30; Start 11/21/16 at 08:00 Dextrose 12.5 gm 12.5 gm PRN Q15MIN PRN IV SEE COMMENTS Last administered on 08:21; Start 11/21/16 at 08:00 Magnesium Sulfate/ Dextrose (Magnesium Sulfate PREMIX 2GM) 50 ml @ 25 mls/hr PRN DAILY PRN IV for Mag < 1.7 on am labs; Start 11/21/16 at 15:15 Hydralazine HCl (Apresoline) 50 mg TID PO Last administered on 11/25/16 10:52 ; Start 11/22/16 at 14:00; Stop 11/25/16 at 13:36; Status DC Labetalol HCl 10 mg 10 mg PRN Q2HR PRN IVP HYPERTENSION, SEE COMMENTS; Start at 09:45 Iron Sucrose 200 mg/Sodium Chloride 110 ml @ 55 mls/hr 3X/WEEK IV Last administered on 11/25/16 10:54; Start 11/22/16 at 14:00; Stop 11/30/16 at 10:59 Magnesium Sulfate/ Dextrose (Magnesium Sulfate PREMIX 1GM) 100 ml @ 100 mls/hr 1X ONCE IV Last administered on 11/22/16 13:21; Start 11/22/16 at 13:30; Stop 11/22/16 at 14:29; Status DC Prednisone (Prednisone) 40 mg DAILY PO Last administered on 11/26/16 08:46; Start 11/22/16 at 15:00 Guaifenesin (Robitussin Dm) 10 ml QID PO Last administered on 11/26/16 08:45; Start 11/22/16 at 14:30 Albuterol/ Ipratropium (Duoneb) 3 ml RTQID NEB Last administered on 11/26/16 07:01; Start 11/22/16 at 16:00 Albuterol Sulfate (Ventolin Neb Soln) 2.5 mg PRN Q4HRS PRN NEB SHORTNESS OF BREATH; Start 11/22/16 at 14:30 Sodium Bicarbonate (Sodium Bicarbonate) 650 mg TID PO Last administered on 11/26 08:45; Start 11/23/16 at 14:00 Lacosamide (Vimpat) 50 mg BID PO Last administered on 11/24/16 08:26; Start at 21:00; Stop 11/24/16 at 15:08; Status DC Morphine Sulfate 2 mg PRN Q2HR PRN IV PAIN; Start 11/23/16 at 16:00 Lacosamide (Vimpat) 100 mg BID PO Last administered on 11/26/16 08:47; Start 11/24/16 at 21:00 Regadenoson (Lexiscan) 0.4 mg 1X ONCE IV ; Start 11/25/16 at 08:15; Stop at 08:16; Status DC Losartan Potassium (Cozaar) 100 mg DAILY PO Last administered on 11/26/16t 08: 46; Start 11/26/16 at 09:00 Active Scripts Active Reported Centrum Men's Tablet (Multivits,Ca,Min/Iron/FA/Lycop) 1 Each Tablet 1 Each PO DAILY Nifedipine Er (Nifedipine) 90 Mg Tab.er.24 90 Mg PO DAILY Hydralazine Hcl 25 Mg Tablet 25 Mg PO TID Irbesartan 300 Mg Tablet 300 Mg PO DAILY Glipizide 10 Mg Tablet 10 Mg PO BIDAC Vitals/I & O Vital Sign - Last 24 Hours 11/25/16 11/25/16 11/25/16 11/25/16 10:52 10:52 11:00 11:31 Temp 97.7 97.7 Pulse 98 98 94 Resp 18 B/P 144/95 144/95 153/90 Pulse Ox 100 O2 Delivery Room Air Room Air 11/25/16 11/25/16 11/25/16 11/25/16 15:02 15:04 19:00 19:11 Temp 97.9 97.7 97.9 97.7 Pulse 70 86 Resp 18 20 B/P 162/86 141/72 Pulse Ox 98 97 98 O2 Delivery Room Air Room Air Room Air Room Air 11/25/16 11/25/16 11/26/16 11/26/16 20:00 23:00 07:00 07:03 Temp 97.5 97.7 97.5 97.7 Pulse 105 88 Resp 21 18 B/P 164/81 168/95 Pulse Ox 98 98 98 O2 Delivery Room Air Room Air Room Air Room Air 11/26/16 11/26/16 08:45 08:46 Pulse 88 88 B/P 168/95 168/95 Intake and Output 11/25/16 11/25/16 11/26/16 15:00 23:00 07:00 Intake Total 120 ml 770 ml 300 ml Output Total 475 ml 600 ml 600 ml Balance -355 ml 170 ml -300 ml TERRELL LOMBARDO MD Nov 26, 2016 10:16
[2016-11-26 11:01] VITALS: BP 174/99
--- NOTE | 2016-11-26 11:11 | PDOC ---
Subjective: Subjective: No GI complaints. Wanted to get out of bed by himself overnight, frustrated that nurses helped. Spitting phlegm in emesis basin. Objective: Objective: Per RN - possible DC w/ HH today. Vital Signs: Vital Signs Date Time Temp Pulse Resp B/P Pulse Ox O2 Delivery O2 Flow Rate FiO2 11/26/16 11:01 97.7 83 18 174/99 99 Room Air 97.7 Labs: Laboratory Tests Test 11/25/16 16:12 11/25/16 20:12 11/26/16 04:30 11/26/16 07:20 Glucose (Fingerstick) 231mg/dL 357mg/dL 85mg/dL Sodium Level 141mmol/L Potassium Level 3.7mmol/L Chloride Level 106mmol/L Carbon Dioxide Level 22mmol/L Anion Gap 13 Blood Urea Nitrogen 51mg/dL Creatinine 2.5mg/dL Estimated GFR (Cockcroft-Gault) 24.5 Glucose Level 216mg/dL Calcium Level 8.7mg/dL Phosphorus Level 3.2mg/dL Magnesium Level 2.0mg/dL Albumin 3.0g/dL Test 11/26/16 10:08 Glucose (Fingerstick) 105mg/dL PE: GEN: NAD, laying in bed ABD: S/ND/NT NEURO/PSYCH: A & O 3 A/P: Hep B and C JENNIFER -renal following -- No treatment recommended for hepatitis w/ advanced age. GAY MANZANO Nov 26, 2016 11:11
--- NOTE | 2016-11-26 11:36 | PDOC ---
SUBJECTIVE ROS CKD IV feeling good overall, some clear phelgm at times CVS: no Orthopnea, no CP RESP: no SOB, no HAWKINS GI: no Nausea, no Vomiting : no Dysuria, no Urgency OBJECTIVE Vital Signs Vital Signs Date Time Temp Pulse Resp B/P Pulse Ox O2 Delivery O2 Flow Rate FiO2 11/26/16 11:01 97.7 83 18 174/99 99 Room Air 97.7 I & 0 Intake and Output 11/26/16 07:00 Intake Total 1190 ml Output Total 1675 ml Balance -485 ml Intake Oral 1190 ml Output Urine Total 1675 ml # Voids 1 PHYSICAL EXAM Physical Exam General Appearance: Awake Alert Oriented x 3 In no Distress Eyes: VIsion Unchanged Conjunctiva Normal EN: No EN Drainage Mucous Memb. mosit Neck: no JVD no JVP Supple no Thyromegaly CVS: S1 S2 ? soft Murmur No Gallop No Rub no Edema Resp: no Rales no Rhonchi no Acc. Muscle use GI: BS +ve NO Bruit Non Tender Non Distended : no CVA tenderness; no Suprapubic Tenderness Assessment & Plan ? CKD III/ Iv - this may be his new baseline. I have reviewed records from [facility] and he is konwn to have CKD III since 2009. -ve for Paraproteinemia. US WNL Current FLuid and E-lyte status does not necessitate emergent need for Dialysis. Will re-evaluate for Dialysis in am Wt Loss - defer to Primary team to work up, PSA (presumably undetecteable) Proteinuria - 2.4 gms ? 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 PEPs are -ve; was on ARB as OP so will restart here since holding it did not make much differecen Min ^ed PTH - check VIt D as OP. Anemia: IV Iron as ordered; Epogen if hgb < 10. Transfuse as needed. HTN: Current BP meds reviewed. See orders for changes. was not on ARb and to get his 1 st dose this am HepB + C appreciate GI input - C3 and C4 are WNL. Cryo P Discussed Plan of Care and prognosis etc. at length with family () COMMENT/RELEVANT DATA Meds Current Medications Medications (Trade) Dose Ordered Sig/Kenisha Start Time Stop Time Status Last Admin Dose Admin Acetaminophen (Tylenol) 650 mg PRN Q4HRS PRN 11/21/16 07:30 11/22/16 07:29 DC Albuterol Sulfate (Ventolin Neb Soln) 2.5 mg PRN Q4HRS PRN 11/22/16 14:30 Albuterol/ Ipratropium (Duoneb) 3 ml RTQID 11/22/16 16:00 11/26/16 10:31 3 ML Albuterol/ Ipratropium 3 ml 3 ml 1X ONCE 11/21/16 02:45 11/21/16 02:46 DC 11/21/16 02:36 3 ML Dextrose 12.5 gm 12.5 gm PRN Q15MIN PRN 11/21/16 08:00 11/24/16 08:21 12.5 GM Glipizide (Glucotrol) 10 mg BIDBFRMEAL 11/21/16 08:00 11/26/16 08:46 10 MG Guaifenesin (Robitussin Dm) 10 ml QID 11/22/16 14:30 11/26/16 08:45 10 ML Hydralazine HCl (Apresoline) 50 mg TID 11/22/16 14:00 11/25/16 13:36 DC 11/25/16 10:52 50 MG Insulin Aspart (Novolog) 0-9 UNITS TIDWMEALS 11/21/16 08:00 11/25/16 17:30 5 UNITS Iron Sucrose 200 mg/Sodium Chloride 110 ml @ 55 mls/hr 3X/WEEK 11/22/16 14:00 11/30/16 10:59 11/25/16 10:54 55 MLS/HR Labetalol HCl 10 mg 10 mg PRN Q2HR PRN 11/22/16 09:45 11/26/16 10:19 10 MG Lacosamide (Vimpat) 100 mg BID 11/24/16 21:00 11/26/16 08:47 100 MG Losartan Potassium (Cozaar) 100 mg DAILY 11/26/16 09:00 11/26/16 08:46 100 MG Magnesium Sulfate/ Dextrose (Magnesium Sulfate PREMIX 1GM) 100 ml @ 100 mls/hr 1X ONCE 11/22/16 13:30 11/22/16 14:29 DC 11/22/16 13:21 100 MLS/HR Magnesium Sulfate/ Dextrose (Magnesium Sulfate PREMIX 2GM) 50 ml @ 25 mls/hr PRN DAILY PRN 11/21/16 15:15 Morphine Sulfate 2 mg PRN Q2HR PRN 11/23/16 16:00 Multivitamins/ Calcium (Thera M Plus) 1 tab DAILY 11/21/16 09:00 11/26/16 08:46 1 TAB Nifedipine (Procardia Xl) 90 mg DAILY 11/21/16 09:00 11/26/16 08:45 90 MG Prednisone (Prednisone) 40 mg DAILY 11/22/16 15:00 11/26/16 08:46 40 MG Regadenoson (Lexiscan) 0.4 mg 1X ONCE 11/25/16 08:15 11/25/16 08:16 DC Sodium Bicarbonate (Sodium Bicarbonate) 650 mg TID 11/23/16 14:00 11/26/16 08:45 650 MG Sodium Chloride (Iv Sodium Chloride 0.9% 1000ml Bag) 1,000 ml @ 100 mls/hr Q10H 11/21/16 07:23 11/22/16 07:22 DC 11/22/16 10:45 100 MLS/HR Lab Laboratory Tests Test 11/25/16 16:12 11/25/16 20:12 11/26/16 04:30 11/26/16 07:20 Glucose (Fingerstick) 231mg/dL (70-99) 357mg/dL (70-99) 85mg/dL (70-99) Sodium Level 141mmol/L (136-145) Potassium Level 3.7mmol/L (3.5-5.1) Chloride Level 106mmol/L (98-107) Carbon Dioxide Level 22mmol/L (21-32) Anion Gap 13 (6-14) Blood Urea Nitrogen 51mg/dL (8-26) Creatinine 2.5mg/dL (0.7-1.3) Estimated GFR (Cockcroft-Gault) 24.5 Glucose Level 216mg/dL (70-99) Calcium Level 8.7mg/dL (8.5-10.1) Phosphorus Level 3.2mg/dL (2.6-4.7) Magnesium Level 2.0mg/dL (1.8-2.4) Albumin 3.0g/dL (3.4-5.0) Test 11/26/16 10:08 Glucose (Fingerstick) 105mg/dL (70-99) TIM TURNER MD Nov 26, 2016 11:36
[2016-11-26 15:00] VITALS: BP 160/80
== END 2016-11-26 17:00 | disposition home health service (06) | DRG 682 ==
LOC: ER 01:34 → 5 SOUTH 04:07
PROVIDERS: ADMIT Internal Medicine; ATTEND Internal Medicine
DX: N17.0 Acute kidney failure with tubular necrosis (principal); I50.33 Acute on chronic diastolic (congestive) heart failure; I13.0 Hypertensive heart and chronic kidney disease with heart failure and stage 1 through stage 4 chronic kidney disease, or unspecified chronic kidney disease; E87.2 Acidosis; B19.10 Unspecified viral hepatitis B without hepatic coma; E11.22 Type 2 diabetes mellitus with diabetic chronic kidney disease; E11.42 Type 2 diabetes mellitus with diabetic polyneuropathy; E66.9 Obesity, unspecified; E78.5 Hyperlipidemia, unspecified; G20 Parkinson's disease; I25.10 Atherosclerotic heart disease of native coronary artery without angina pectoris; N18.4 Chronic kidney disease, stage 4 (severe); I27.2 Other secondary pulmonary hypertension; E11.51 Type 2 diabetes mellitus with diabetic peripheral angiopathy without gangrene; Z96.653 Presence of artificial knee joint, bilateral; R80.9 Proteinuria, unspecified; G25.0 Essential tremor; B19.20 Unspecified viral hepatitis C without hepatic coma; E61.1 Iron deficiency; M19.90 Unspecified osteoarthritis, unspecified site; Z85.46 Personal history of malignant neoplasm of prostate; Z86.19 Personal history of other infectious and parasitic diseases; Z92.3 Personal history of irradiation; Z95.5 Presence of coronary angioplasty implant and graft; Z68.25 Body mass index [BMI] 25.0-25.9, adult; Z87.891 Personal history of nicotine dependence
CPT/HCPCS: 36415; 71020; 76770; 78451; 80053; 80061; 80069; 80074; 81001; 82550; 82575; 82595; 82607; 82728; 82947; 83520; 83540; 83550; 83735; 83880; 83970; 84153; 84154; 84156; 84165; 84166; 84300; 84443; 84484; 84550; 85027; 85045; 86160; 86334; 86704; 86706; 87517; 87804; 93005; 93306; 94250; 94640; 94760; 96360; 96374; A9500; J1756; J1815; J2785; J3475; J3490; J7030; J7042; J7512; J7620; 97116; 97530; 97535; 99285-25

== ENCOUNTER 2017-11-11 09:54 | Inpatient (IN) | payer MEDICARE ==
[2017-11-11 10:40] LABS: ADD MAN DIFF? NO
[2017-11-11 10:55] LABS: ANION GAP 14 (6-14); BLOOD UREA NITROGEN 49 mg/dL (8-26); CALCIUM 9.3 mg/dL (8.5-10.1); CARBON DIOXIDE 23 mmol/L (21-32); CHLORIDE 103 mmol/L (98-107); CREATININE 3.5 mg/dL (0.7-1.3); GFR 16.6; GLUCOSE 156 mg/dL (70-99); POTASSIUM 3.9 mmol/L (3.5-5.1); SODIUM 140 mmol/L (136-145)
[2017-11-11 11:03] LABS: LACTIC ACID 1.7 mmol/L (0.4-2.0); TROPONINI < 0.017 ng/mL (0.000-0.055)
[2017-11-11 11:07] LABS: NT-PRO BNP 1516 pg/mL (0-449)
[2017-11-11 11:10] LABS: ALBUMIN 3.5 g/dL (3.4-5.0); ALK PHOS 80 U/L (46-116); ALT (SGPT) 22 U/L (16-63); AST (SGOT) 21 U/L (15-37); DIRECT BILIRUBIN 0.1 mg/dL (0.0-0.2); LIPASE 204 U/L (73-393); TOTAL BILIRUBIN 0.4 mg/dL (0.2-1.0); TOTAL PROTEIN 6.9 g/dL (6.4-8.2)
[2017-11-11 11:34] LABS: BASO % 1 % (0-3); EOS # 0.2 x10^3/uL (0.0-0.7); EOS % 3 % (0-3); HEMATOCRIT 31.3 % (39.0-53.0); HEMOGLOBIN 10.4 g/dL (13.0-17.5); LYMPH % 14 % (24-48); MEAN CORPUSCULAR HEMOGLOBIN 28 pg (25-35); MEAN CORPUSCULAR HGB CONC 33 g/dL (31-37); MEAN CORPUSCULAR VOLUME 85 fL (79-100); MONO # 0.6 x10^3/uL (0.0-1.1); MONO % 9 % (0-9); NEUT # 5.1 x10^3uL (1.8-7.7); NEUT % 73 % (31-73); PLATELET COUNT 273 x10^3/uL (140-400); RED BLOOD COUNT 3.71 x10^6/uL (4.30-5.70); RED CELL DISTRIBUTION WIDTH 12.8 % (11.5-14.5); WHITE BLOOD COUNT 6.9 x10^3/uL (4.0-11.0)
[2017-11-11] MEDS: IV NORMAL SALINE 500ML BAG 500 ML IV (12:10)
[2017-11-11 12:17] LABS: BILIRUBIN,URINE NEGATIVE (NEG); CLARITY,URINE CLEAR; COLOR,URINE YELLOW; GLUCOSE,URINE NEGATIVE (NEG); NITRITE,URINE NEGATIVE (NEG); PH,URINE 5.5; PROTEIN,URINE >=300 mg/dL (NEG-TRACE); UROBILINOGEN,URINE 0.2 mg/dL (0.2 mg/dL)
[2017-11-11 12:30] LABS: BACTERIA,URINE 0 /HPF (0-FEW); GRANULAR CASTS,URINE OCCASIONAL /HPF; HYALINE CASTS, URINE MODERATE /HPF; SQUAMOUS EPITHELIAL CELL,UR FEW /LPF
[2017-11-11] MEDS ORDERED: ONDANSETRON PF 4 MG/2 ML VIAL. IV (12:30)
[2017-11-11] MEDS: IV NORMAL SALINE 1000ML BAG 1,000 ML IV (17:40)
[2017-11-11 18:15] LABS: POC GLUCOSE 57 mg/dL (70-99)
[2017-11-11 18:15] LABS: POC GLUCOSE 142 mg/dL (70-99)
[2017-11-11] MEDS: MORPHINE SULFATE 2 MG/ML DISP.SYRIN. IV (20:37)
[2017-11-11 21:29] LABS: POC GLUCOSE 166 mg/dL (70-99)
[2017-11-12 03:02] LABS: POC GLUCOSE 62 mg/dL (70-99)
[2017-11-12 04:40] LABS: ADD MAN DIFF? NO
[2017-11-12 04:42] LABS: BASO # 0.1 x10^3/uL (0.0-0.2); BASO % 1 % (0-3); EOS # 0.2 x10^3/uL (0.0-0.7); EOS % 3 % (0-3); HEMATOCRIT 30.6 % (39.0-53.0); HEMOGLOBIN 10.2 g/dL (13.0-17.5); LYMPH # 1.2 x10^3/uL (1.0-4.8); LYMPH % 17 % (24-48); MEAN CORPUSCULAR HEMOGLOBIN 28 pg (25-35); MEAN CORPUSCULAR HGB CONC 33 g/dL (31-37); MEAN CORPUSCULAR VOLUME 85 fL (79-100); MONO # 0.7 x10^3/uL (0.0-1.1); MONO % 10 % (0-9); NEUT # 5.1 x10^3uL (1.8-7.7); NEUT % 70 % (31-73); PLATELET COUNT 253 x10^3/uL (140-400); RED BLOOD COUNT 3.62 x10^6/uL (4.30-5.70); RED CELL DISTRIBUTION WIDTH 12.7 % (11.5-14.5); WHITE BLOOD COUNT 7.3 x10^3/uL (4.0-11.0)
[2017-11-12 04:57] LABS: POC GLUCOSE 138 mg/dL (70-99)
[2017-11-12 05:21] LABS: ANION GAP 13 (6-14); BLOOD UREA NITROGEN 42 mg/dL (8-26); CALCIUM 8.8 mg/dL (8.5-10.1); CARBON DIOXIDE 23 mmol/L (21-32); CHLORIDE 106 mmol/L (98-107); CREATININE 3.4 mg/dL (0.7-1.3); GFR 17.1; GLUCOSE 110 mg/dL (70-99); POTASSIUM 3.4 mmol/L (3.5-5.1); SODIUM 142 mmol/L (136-145)
[2017-11-12 07:56] LABS: POC GLUCOSE 82 mg/dL (70-99)
[2017-11-12] MEDS: MULTIVITAMIN with MINERAL TABLET. PO (08:44)
[2017-11-12] MEDS: LOSARTAN POTASSIUM 50 MG TABLET. PO (08:45)
[2017-11-12] MEDS: hydrALAZINE 25 MG TABLET PO (08:45)
[2017-11-12] MEDS: glipiZIDE 5 MG TABLET PO ×2 (08:45→16:08)
[2017-11-12] MEDS: IV NORMAL SALINE 1000ML BAG 1,000 ML IV ×2 (11:20→23:55)
[2017-11-12] MEDS ORDERED: MAGNESIUM SULFATE 2GM 50 ML IV (11:30)
[2017-11-12 11:48] LABS: % SAT IRON 24 % (15-34); IRON,SERUM 58 ug/dL (65-175)
[2017-11-12 11:52] LABS: POC GLUCOSE 99 mg/dL (70-99)
[2017-11-12 12:01] LABS: FERRITIN 315 ng/mL (26-388)
[2017-11-12 12:46] LABS: RETIC COUNT 0.6 % (0.5-2.5)
[2017-11-12 17:09] LABS: POC GLUCOSE 102 mg/dL (70-99)
[2017-11-12 21:02] LABS: POC GLUCOSE 136 mg/dL (70-99)
[2017-11-12] MEDS: oxyCODONE/APAP 5/325 1 TAB TABLET PO (23:50)
[2017-11-12] MEDS: ALPRAZolam 0.25 MG TABLET PO (23:50)
[2017-11-13 06:17] LABS: ALBUMIN 3.5 g/dL (3.4-5.0); ANION GAP 14 (6-14); BLOOD UREA NITROGEN 41 mg/dL (8-26); CALCIUM 8.9 mg/dL (8.5-10.1); CARBON DIOXIDE 21 mmol/L (21-32); CHLORIDE 105 mmol/L (98-107); CREATININE 3.1 mg/dL (0.7-1.3); GFR 19.1; GLUCOSE 91 mg/dL (70-99); PHOSPHORUS 3.9 mg/dL (2.6-4.7); POTASSIUM 3.7 mmol/L (3.5-5.1); SODIUM 140 mmol/L (136-145)
[2017-11-13 06:20] LABS: MAGNESIUM 2.2 mg/dL (1.8-2.4)
[2017-11-13 08:06] LABS: POC GLUCOSE 84 mg/dL (70-99)
[2017-11-13] MEDS: MULTIVITAMIN with MINERAL TABLET. PO (08:07)
[2017-11-13] MEDS: glipiZIDE 5 MG TABLET PO ×2 (08:07→16:30)
[2017-11-13] MEDS: LOSARTAN POTASSIUM 50 MG TABLET. PO (08:08)
[2017-11-13] MEDS: oxyCODONE/APAP 5/325 1 TAB TABLET PO ×3 (08:13→20:10)
[2017-11-13 12:05] LABS: POC GLUCOSE 119 mg/dL (70-99)
[2017-11-13] MEDS: IV NORMAL SALINE 1000ML BAG 1,000 ML IV (12:55)
[2017-11-13 16:05] LABS: POC GLUCOSE 194 mg/dL (70-99)
[2017-11-13] MEDS: ALPRAZolam 0.25 MG TABLET PO (20:10)
[2017-11-13 21:08] LABS: POC GLUCOSE 155 mg/dL (70-99)
[2017-11-14] MEDS: IV NORMAL SALINE 1000ML BAG 1,000 ML IV ×2 (02:25→14:11)
[2017-11-14 05:02] LABS: ADD MAN DIFF? NO
[2017-11-14 05:41] LABS: BASO % 1 % (0-3); EOS # 0.2 x10^3/uL (0.0-0.7); EOS % 3 % (0-3); HEMATOCRIT 29.4 % (39.0-53.0); HEMOGLOBIN 9.8 g/dL (13.0-17.5); LYMPH # 1.1 x10^3/uL (1.0-4.8); LYMPH % 15 % (24-48); MEAN CORPUSCULAR HEMOGLOBIN 28 pg (25-35); MEAN CORPUSCULAR HGB CONC 33 g/dL (31-37); MEAN CORPUSCULAR VOLUME 85 fL (79-100); MONO # 0.8 x10^3/uL (0.0-1.1); MONO % 12 % (0-9); NEUT # 4.9 x10^3uL (1.8-7.7); NEUT % 69 % (31-73); PLATELET COUNT 235 x10^3/uL (140-400); RED BLOOD COUNT 3.47 x10^6/uL (4.30-5.70); RED CELL DISTRIBUTION WIDTH 13.1 % (11.5-14.5); WHITE BLOOD COUNT 7.1 x10^3/uL (4.0-11.0)
[2017-11-14 05:53] LABS: ANION GAP 14 (6-14); BLOOD UREA NITROGEN 40 mg/dL (8-26); CALCIUM 8.2 mg/dL (8.5-10.1); CARBON DIOXIDE 21 mmol/L (21-32); CHLORIDE 106 mmol/L (98-107); CREATININE 3.1 mg/dL (0.7-1.3); GFR 19.1; GLUCOSE 102 mg/dL (70-99); POTASSIUM 3.7 mmol/L (3.5-5.1); SODIUM 141 mmol/L (136-145)
[2017-11-14 05:59] LABS: MAGNESIUM 1.9 mg/dL (1.8-2.4)
[2017-11-14 06:03] LABS: ANION GAP 13 (6-14); BLOOD UREA NITROGEN 38 mg/dL (8-26); CALCIUM 8.8 mg/dL (8.5-10.1); CARBON DIOXIDE 20 mmol/L (21-32); CHLORIDE 107 mmol/L (98-107); GFR 19.8; GLUCOSE 100 mg/dL (70-99); PHOSPHORUS 3.8 mg/dL (2.6-4.7); POTASSIUM 3.5 mmol/L (3.5-5.1); SODIUM 140 mmol/L (136-145)
[2017-11-14 07:32] LABS: POC GLUCOSE 85 mg/dL (70-99)
[2017-11-14] MEDS: MULTIVITAMIN with MINERAL TABLET. PO (09:01)
[2017-11-14] MEDS: glipiZIDE 5 MG TABLET PO ×2 (09:04→17:25)
[2017-11-14] MEDS: LOSARTAN POTASSIUM 50 MG TABLET. PO (09:04)
[2017-11-14 12:07] LABS: POC GLUCOSE 119 mg/dL (70-99)
[2017-11-14] MEDS: ALPRAZolam 0.25 MG TABLET PO (16:09)
[2017-11-14] MEDS: ALBUTEROL SULFATE 2.5 MG/3 ML NEBU. NEB (16:27)
[2017-11-14 16:55] LABS: POC GLUCOSE 156 mg/dL (70-99)
[2017-11-14] MEDS: oxyCODONE/APAP 5/325 1 TAB TABLET PO (20:25)
[2017-11-14] MEDS: METOPROLOL TART IMMED RELEASE 50 MG TABLET. PO (20:25)
[2017-11-14 20:41] LABS: POC GLUCOSE 130 mg/dL (70-99)
[2017-11-15] MEDS: oxyCODONE/APAP 5/325 1 TAB TABLET PO (01:42)
[2017-11-15] MEDS: ALPRAZolam 0.25 MG TABLET PO (01:42)
[2017-11-15] MEDS: IV NORMAL SALINE 1000ML BAG 1,000 ML IV (01:46)
[2017-11-15 04:32] LABS: POC GLUCOSE 62 mg/dL (70-99)
[2017-11-15 05:20] LABS: ADD MAN DIFF? NO
[2017-11-15 05:39] LABS: BASO % 1 % (0-3); EOS # 0.2 x10^3/uL (0.0-0.7); EOS % 3 % (0-3); HEMOGLOBIN 9.3 g/dL (13.0-17.5); LYMPH # 1.1 x10^3/uL (1.0-4.8); LYMPH % 15 % (24-48); MEAN CORPUSCULAR HEMOGLOBIN 28 pg (25-35); MEAN CORPUSCULAR HGB CONC 33 g/dL (31-37); MEAN CORPUSCULAR VOLUME 85 fL (79-100); MONO # 0.9 x10^3/uL (0.0-1.1); MONO % 12 % (0-9); NEUT # 5.4 x10^3uL (1.8-7.7); NEUT % 70 % (31-73); PLATELET COUNT 231 x10^3/uL (140-400); RED BLOOD COUNT 3.29 x10^6/uL (4.30-5.70); RED CELL DISTRIBUTION WIDTH 13.1 % (11.5-14.5); WHITE BLOOD COUNT 7.7 x10^3/uL (4.0-11.0)
[2017-11-15 06:10] LABS: ALBUMIN 2.9 g/dL (3.4-5.0); ANION GAP 15 (6-14); BLOOD UREA NITROGEN 39 mg/dL (8-26); CARBON DIOXIDE 19 mmol/L (21-32); CHLORIDE 107 mmol/L (98-107); GFR 19.8; GLUCOSE 64 mg/dL (70-99); PHOSPHORUS 3.9 mg/dL (2.6-4.7); POTASSIUM 3.8 mmol/L (3.5-5.1); SODIUM 141 mmol/L (136-145)
[2017-11-15 07:28] LABS: POC GLUCOSE 75 mg/dL (70-99)
[2017-11-15] MEDS: glipiZIDE 5 MG TABLET PO (08:34)
[2017-11-15] MEDS: MULTIVITAMIN with MINERAL TABLET. PO (08:35)
[2017-11-15] MEDS: METOPROLOL TART IMMED RELEASE 50 MG TABLET. PO (08:37)
[2017-11-15 09:11] LABS: CREAT CLEAR 24 9 mL/min (97-137); CREATININE UR 24HR 412 mg/24 hr (1000-2000); PROTEIN 24 HR UR 933 mg/24 hr (30-150); TOTAL SERUM CREATININE 3.07 mg/dL (0.76-1.27); TOTAL URINE CREATININE 58.9 mg/dL (Not Estab.); UR PROTEIN 133.3 mg/dL (Not Estab.); eGFR AFRICAN-AMER 20 (>59); eGFR NON AFRICAN-AMER 17 (>59)
[2017-11-15 12:16] LABS: POC GLUCOSE 86 mg/dL (70-99)
== END 2017-11-15 12:47 | disposition home health service (06) | DRG 682 ==
LOC: ER 09:54 → 6 SOUTH 12:31
DX: N17.9 Acute kidney failure, unspecified (principal); G93.41 Metabolic encephalopathy; E87.70 Fluid overload, unspecified; E11.22 Type 2 diabetes mellitus with diabetic chronic kidney disease; N18.4 Chronic kidney disease, stage 4 (severe); D64.9 Anemia, unspecified; E78.5 Hyperlipidemia, unspecified; I12.9 Hypertensive chronic kidney disease with stage 1 through stage 4 chronic kidney disease, or unspecified chronic kidney disease; M19.90 Unspecified osteoarthritis, unspecified site; N40.0 Benign prostatic hyperplasia without lower urinary tract symptoms; Z96.651 Presence of right artificial knee joint; Z83.3 Family history of diabetes mellitus; Z85.46 Personal history of malignant neoplasm of prostate; Z91.19 Patient's noncompliance with other medical treatment and regimen
CPT/HCPCS: 36415; 70450; 71045; 80048; 80069; 80076; 81001; 82575; 82728; 82962; 83540; 83550; 83605; 83690; 83735; 83880; 84156; 84484; 85018; 85025; 85045; 93005; 94640; 96360; 96361; 97161-GP; 97165-GO; 99285; 99285-25; J2270; J7030; J7040; J7613

== ENCOUNTER 2017-11-18 04:43 | Inpatient (IN) | payer MEDICARE ==
[2017-11-18] MEDS: IPRATRPIUM/ALBUTEROL 0.5/2.5MG 3 ML NEBU. NEB ×12 (05:05→19:13)
[2017-11-18 05:14] LABS: ADD MAN DIFF? NO
[2017-11-18 05:16] LABS: BASO % 0 % (0-3); EOS % 1 % (0-3); HEMOGLOBIN 9.1 g/dL (13.0-17.5); LYMPH # 1.1 x10^3/uL (1.0-4.8); LYMPH % 13 % (24-48); MEAN CORPUSCULAR HEMOGLOBIN 28 pg (25-35); MEAN CORPUSCULAR HGB CONC 34 g/dL (31-37); MEAN CORPUSCULAR VOLUME 84 fL (79-100); MONO # 0.8 x10^3/uL (0.0-1.1); MONO % 9 % (0-9); NEUT # 6.2 x10^3uL (1.8-7.7); NEUT % 77 % (31-73); PLATELET COUNT 210 x10^3/uL (140-400); RED BLOOD COUNT 3.21 x10^6/uL (4.30-5.70); RED CELL DISTRIBUTION WIDTH 12.8 % (11.5-14.5)
[2017-11-18 05:26] LABS: ANION GAP 14 (6-14); BLOOD UREA NITROGEN 37 mg/dL (8-26); BUN/CREATININE RATIO 12 (6-20); CALCIUM 8.2 mg/dL (8.5-10.1); CARBON DIOXIDE 21 mmol/L (21-32); CHLORIDE 94 mmol/L (98-107); CREATININE 3.1 mg/dL (0.7-1.3); GFR 19.1; GLUCOSE 115 mg/dL (70-99); POTASSIUM 4.3 mmol/L (3.5-5.1); SODIUM 129 mmol/L (136-145)
[2017-11-18 05:32] LABS: ALBUMIN 3.5 g/dL (3.4-5.0); ALK PHOS 108 U/L (46-116); ALT (SGPT) 76 U/L (16-63); AST (SGOT) 63 U/L (15-37); TOTAL BILIRUBIN 0.3 mg/dL (0.2-1.0); TOTAL PROTEIN 6.9 g/dL (6.4-8.2)
[2017-11-18 05:37] LABS: TROPONINI 0.069 ng/mL (0.000-0.055)
[2017-11-18 05:38] LABS: NT-PRO BNP 17574 pg/mL (0-449)
[2017-11-18] MEDS: FUROSEMIDE 40 MG/4 ML VIAL. IVP ×2 (05:45)
[2017-11-18] MEDS: methylPREDNISolone SOD SUCC PF 125 MG/2 ML VIAL. IV ×2 (05:45)
[2017-11-18] MEDS ORDERED: ONDANSETRON PF 4 MG/2 ML VIAL. IV ×4 (05:45→12:45)
[2017-11-18] MEDS ORDERED: ACETAMINOPHEN 325 MG TABLET. PO ×2 (05:45)
[2017-11-18 06:11] LABS: BASE EXCESS ABG -7 mmol/L (-3-3); HCO3 ABG 18 mmol/L (21-28); PCO2 ABG 34 mmHg (35-46); PH ABG 7.35 (7.35-7.45); PO2 ABG 120 mmHg (65-108); SAT O2 ABG 98 % (92-99)
[2017-11-18 06:17] LABS: FIO2 ABG 30
[2017-11-18 06:25] LABS: LACTIC ACID 0.9 mmol/L (0.4-2.0)
[2017-11-18] MEDS: hydrALAZINE 25 MG TABLET PO ×2 (09:23)
[2017-11-18] MEDS: METOPROLOL TART IMMED RELEASE 50 MG TABLET. PO ×4 (09:24→20:42)
[2017-11-18] MEDS: LOSARTAN POTASSIUM 50 MG TABLET. PO ×2 (09:25)
[2017-11-18 09:40] LABS: POC GLUCOSE 126 mg/dL (70-99)
[2017-11-18] MEDS ORDERED: DEXTROSE 50% 25 GM / 50ML DISP.SYRIN. IV ×2 (10:15)
[2017-11-18 10:21] LABS: CHOLESTEROL 132 mg/dL (0-200); HDLC 62 mg/dL (40-60); LDLC 57 mg/dL (0-100); NON-HDL CHOLESTEROL 70 mg/dL (0-129); TRIGLYCERIDES 64 mg/dL (0-150); VLDLC 13 mg/dL (0-40)
[2017-11-18 10:24] LABS: CHOLESTEROL/HDL RATIO 2.1
[2017-11-18] MEDS: hydrALAZINE 20 MG/ML VIAL. IVP ×2 (11:09)
[2017-11-18] MEDS: INSULIN ASPART 300 UNITS/3 ML INSULN.PEN SQ ×4 (12:00→17:12)
[2017-11-18 12:19] LABS: POC GLUCOSE 183 mg/dL (70-99)
[2017-11-18 12:28] LABS: TROPONINI 0.051 ng/mL (0.000-0.055)
[2017-11-18] MEDS ORDERED: MORPHINE SULFATE 2 MG/ML DISP.SYRIN. IV ×2 (12:45)
[2017-11-18] MEDS ORDERED: ALBUTEROL SULFATE 2.5 MG/3 ML NEBU. NEB ×2 (13:00)
[2017-11-18] MEDS: fentaNYL PF VIAL 100 MCG/2 ML VIAL IV ×6 (13:01→20:43)
[2017-11-18] MEDS ORDERED: LABETALOL 20 MG/4 ML DISP.SYRIN. IVP ×2 (13:45)
[2017-11-18] MEDS: HEPARIN PF for SUB-Q USE 5,000 UNIT/0.5 ML VIAL. SQ ×4 (14:09→20:52)
[2017-11-18 16:48] LABS: POC GLUCOSE 230 mg/dL (70-99)
[2017-11-18] MEDS: glipiZIDE 5 MG TABLET PO ×2 (17:02)
[2017-11-18] MEDS: NITROGLYCERIN PREMIX 250 ML IV ×2 (17:07)
[2017-11-18] MEDS: BUDESONIDE 0.5 MG/2 ML NEBU. NEB ×2 (19:14)
[2017-11-18 20:50] LABS: POC GLUCOSE 175 mg/dL (70-99)
[2017-11-19 04:52] LABS: ADD MAN DIFF? NO
[2017-11-19 05:09] LABS: BASO % 0 % (0-3); EOS % 0 % (0-3); HEMATOCRIT 24.3 % (39.0-53.0); HEMOGLOBIN 8.2 g/dL (13.0-17.5); LYMPH # 0.9 x10^3/uL (1.0-4.8); LYMPH % 13 % (24-48); MEAN CORPUSCULAR HEMOGLOBIN 28 pg (25-35); MEAN CORPUSCULAR HGB CONC 34 g/dL (31-37); MEAN CORPUSCULAR VOLUME 84 fL (79-100); MONO # 1.1 x10^3/uL (0.0-1.1); MONO % 15 % (0-9); NEUT # 5.1 x10^3uL (1.8-7.7); NEUT % 72 % (31-73); PLATELET COUNT 214 x10^3/uL (140-400); RED BLOOD COUNT 2.89 x10^6/uL (4.30-5.70); RED CELL DISTRIBUTION WIDTH 12.8 % (11.5-14.5); WHITE BLOOD COUNT 7.1 x10^3/uL (4.0-11.0)
[2017-11-19 05:36] LABS: ANION GAP 13 (6-14); BLOOD UREA NITROGEN 43 mg/dL (8-26); CALCIUM 8.7 mg/dL (8.5-10.1); CARBON DIOXIDE 21 mmol/L (21-32); CHLORIDE 101 mmol/L (98-107); CREATININE 3.4 mg/dL (0.7-1.3); GFR 17.1; GLUCOSE 58 mg/dL (70-99); POTASSIUM 3.8 mmol/L (3.5-5.1); SODIUM 135 mmol/L (136-145)
[2017-11-19] MEDS: IPRATRPIUM/ALBUTEROL 0.5/2.5MG 3 ML NEBU. NEB ×8 (05:42→19:24)
[2017-11-19] MEDS: BUDESONIDE 0.5 MG/2 ML NEBU. NEB ×4 (05:42→19:24)
[2017-11-19] MEDS: HEPARIN PF for SUB-Q USE 5,000 UNIT/0.5 ML VIAL. SQ ×6 (05:51→20:21)
[2017-11-19] MEDS: glipiZIDE 5 MG TABLET PO ×2 (07:30)
[2017-11-19] MEDS: INSULIN ASPART 300 UNITS/3 ML INSULN.PEN SQ ×6 (08:00→17:45)
[2017-11-19] MEDS: DOCUSATE SODIUM 100 MG CAPSULE. PO ×2 (08:08)
[2017-11-19] MEDS: METOPROLOL TART IMMED RELEASE 50 MG TABLET. PO ×4 (08:08→20:16)
[2017-11-19 08:25] LABS: POC GLUCOSE 56 mg/dL (70-99)
[2017-11-19 12:05] LABS: POC GLUCOSE 95 mg/dL (70-99)
[2017-11-19] MEDS: FUROSEMIDE 20 MG TABLET PO ×2 (12:42)
[2017-11-19] MEDS ORDERED: glipiZIDE 5 MG TABLET PO ×2 (16:30)
[2017-11-19 17:26] LABS: POC GLUCOSE 215 mg/dL (70-99)
[2017-11-19] MEDS ORDERED: ISOSORBIDE MONONITRATE ER 30 MG TAB.ER.24H PO ×2 (18:00)
[2017-11-19] MEDS: traMADol 50 MG TABLET PO ×2 (21:17)
[2017-11-19] MEDS: ACETAMINOPHEN 325 MG TABLET. PO ×2 (22:45)
[2017-11-20 05:15] LABS: ANION GAP 13 (6-14); BLOOD UREA NITROGEN 50 mg/dL (8-26); CALCIUM 8.6 mg/dL (8.5-10.1); CARBON DIOXIDE 20 mmol/L (21-32); CHLORIDE 102 mmol/L (98-107); CREATININE 3.5 mg/dL (0.7-1.3); GFR 16.6; GLUCOSE 92 mg/dL (70-99); POTASSIUM 3.9 mmol/L (3.5-5.1); SODIUM 135 mmol/L (136-145)
[2017-11-20] MEDS: HEPARIN PF for SUB-Q USE 5,000 UNIT/0.5 ML VIAL. SQ ×4 (06:20→14:37)
[2017-11-20] MEDS: IPRATRPIUM/ALBUTEROL 0.5/2.5MG 3 ML NEBU. NEB ×4 (07:16→11:55)
[2017-11-20] MEDS: BUDESONIDE 0.5 MG/2 ML NEBU. NEB ×2 (07:17)
[2017-11-20 07:40] LABS: POC GLUCOSE 91 mg/dL (70-99)
[2017-11-20] MEDS: hydrALAZINE 20 MG/ML VIAL. IVP ×2 (07:59)
[2017-11-20] MEDS: INSULIN ASPART 300 UNITS/3 ML INSULN.PEN SQ ×4 (08:00→12:00)
[2017-11-20] MEDS: ISOSORBIDE MONONITRATE ER 30 MG TAB.ER.24H PO ×2 (08:29)
[2017-11-20] MEDS: METOPROLOL TART IMMED RELEASE 50 MG TABLET. PO ×2 (08:29)
[2017-11-20] MEDS: FUROSEMIDE 20 MG TABLET PO ×2 (08:30)
[2017-11-20 11:33] LABS: POC GLUCOSE 144 mg/dL (70-99)
== END 2017-11-20 17:24 | disposition home or self-care (01) | DRG 682 ==
LOC: ER 04:43 → 2 NORTH 05:00
DX: N17.0 Acute kidney failure with tubular necrosis (principal); J96.01 Acute respiratory failure with hypoxia; I50.33 Acute on chronic diastolic (congestive) heart failure; I13.0 Hypertensive heart and chronic kidney disease with heart failure and stage 1 through stage 4 chronic kidney disease, or unspecified chronic kidney disease; J44.1 Chronic obstructive pulmonary disease with (acute) exacerbation; I16.1 Hypertensive emergency; E87.1 Hypo-osmolality and hyponatremia; I24.8 Other forms of acute ischemic heart disease; N18.4 Chronic kidney disease, stage 4 (severe); Z96.651 Presence of right artificial knee joint; N40.0 Benign prostatic hyperplasia without lower urinary tract symptoms; E78.5 Hyperlipidemia, unspecified; E11.22 Type 2 diabetes mellitus with diabetic chronic kidney disease; M19.90 Unspecified osteoarthritis, unspecified site; Z85.46 Personal history of malignant neoplasm of prostate; Z87.891 Personal history of nicotine dependence; Z83.3 Family history of diabetes mellitus
CPT/HCPCS: 36415; 36600; 71045; 80048; 80053; 80061; 82805; 82962; 83605; 83880; 84484; 85025; 87040; 93005; 93306; 94640; 94660; 96374; 96375; 97116-GP; 97162-GP; 97166-GO; 99291; 99291-25; J0360; J1815; J1940; J2930; J3010; J3490; J7050; J7620; J7626